=== PATIENT | female | born 1945 | race African-American/Black ===

== ENCOUNTER 2020-11-07 12:22 | Outpatient (CLI) | payer MEDICARE, SELFPAY ==
[2020-11-07 12:58] LABS: Alanine Aminotransferase 26 U/L (4-35); Albumin Level 3.5 g/dL (3.5-5.1); Alkaline Phosphatase 77 U/L (38-126); Anion Gap 6 mmol/L (8-16); Aspartate Amino Transferase 56 U/L (14-36); Bilirubin,Total 0.8 mg/dL (0.2-1.3); Blood Urea Nitrogen 18 mg/dL (7-17); Calcium 9.1 mg/dL (8.4-10.2); Carbon Dioxide 34 mmol/L (22-30); Chloride 96 mmol/L (98-107); Estimated Glomerular Filt Rate 59; Glucose 101 mg/dL (65-105); Potassium 3.5 mmol/L (3.4-5.0); Sodium 136 mmol/L (137-145)
[2020-11-07 13:08] LABS: NT Pro B Type Natriuretic Pept 262 PG/ML (5-100)
== END 2020-11-07 12:23 | disposition home or self-care (01) ==
PROVIDERS: PCP Emergency Medicine; Visit Provider Emergency Medicine
DX: R60.9 Edema, unspecified (principal); R06.00 Dyspnea, unspecified; E78.5 Hyperlipidemia, unspecified
CPT/HCPCS: 36415; 80053; 83880; 84443

== ENCOUNTER 2021-01-25 09:44 | Inpatient (IN) | payer MEDICARE, MEDICAID, SELFPAY ==
[2021-01-25] VITALS (26 sets, daily range): BP systolic 105–148; BP diastolic 52–99; PULSE 77–88; RESP 11–20; TEMP 36.2–36.4; O2SAT 99–100
--- NOTE | ~2021-01-25 | XR_ITS ---
EXAMINATION: XR foot RT 2V DATE: 02/07/2021 08:46 INDICATION: Right foot pain. TECHNIQUE: 2 views of right foot were obtained. COMPARISON: None. FINDINGS: Bone alignment is normal. No fracture. There is mild osteoarthritis of many of the midfoot joints and interphalangeal joints. There are enthesophytes at the posterior and plantar aspects of ca lcaneal tuberosity. IMPRESSION: 1. Polyarticular osteoarthritis. Reviewed, dictated and finalized at location A. TENDER
--- NOTE | ~2021-01-25 | XR_ITS ---
EXAMINATION: XR foot LT 2V DATE: 02/07/2021 08:46 INDICATION: Left foot pain. TECHNIQUE: 3 views of left foot were obtained. COMPARISON: None. FINDINGS: Bone alignment is normal. No fracture. There is mild osteoarthritis of first metatarsophala ngeal joint and many of the midfoot joints and interphalangeal joints. There are enthesophytes at the posterior and plantar aspects of calcaneal tuberosity. IMPRESSION: 1. Polyarticular osteoarthritis. Reviewed, dictated and finalized at location A. PROGRAMMER ANALYST
--- NOTE | ~2021-01-25 | US_ITS ---
EXAMINATION: US abdomen duplex complete INDICATION: Mesenteric artery calcification on CT, abdominal pain and concern for mesenteric ischemia TECHNIQUE: Grayscale and color Doppler ultrasound of the aorta, superior mesenteric artery, celiac ar mellissa, splenic artery, and hepatic artery was performed. Doppler waveforms are also obtained. COMPARISON: None available FINDINGS: The superior mesenteric artery, celiac trunk, abdominal aorta, hepatic artery, and splenic artery are patent. Doppler waveforms are normal. No significant stenosis is identified. IMPRESSION: 1. No hemodynamically significant stenosis identified. Reviewed, dictated and finalized at location A. EW COORDINATOR
--- NOTE | ~2021-01-25 | US_ITS ---
EXAMINATION: US carotid duplex BI DATE: 01/27/2021 16:22 INDICATION: Presyncope. Carotid atherosclerosis and cerebral atherosclerosis. TECHNIQUE: Grayscale, color Doppler, and pulsed Doppler images of the cervical carotid arteries were obtained. The degree of vessel stenosis is placed in one of the following categories: normal, <50%, 5 0-69%, >=70% but less than near-occlusion, near-occlusion, or total occlusion. Note that percent sten osis relative to normal distal artery lumen diameter is indirectly measured from velocity measurement s as described by Ashok, et al. Radiology 2003; 229:340-346. COMPARISON: None. FINDINGS: RIGHT: The right common carotid artery (CCA) peak systolic velocity (PSV) is 45 cm/s. The right internal car otid artery (ICA) PSV is 58 cm/s. The right ICA end-diastolic velocity (EDV) is 21 cm/s. The right IC A/CCA PSV ratio is 1.3. Grayscale and color Doppler images yield an estimate of <50% diameter reducti on from plaque in the ICA. The external carotid artery (ECA) PSV is 47 cm/s. There is antegrade flow in the right vertebral artery. LEFT: The left CCA PSV is 68 cm/s. The left ICA PSV is 86 cm/s. The left ICA EDV is 33 cm/s. The left ICA/C CA PSV ratio is 1.3. Grayscale and color Doppler images yield an estimate of <50% diameter reduction from plaque in the ICA. The ECA PSV is 37 cm/s. There is antegrade flow in the left vertebral artery. IMPRESSION: 1. <50% stenosis in the right internal carotid artery. 2. <50% stenosis in the left internal carotid artery. Reviewed, dictated and finalized at location B. UNITY ORGANIZER
--- NOTE | ~2021-01-25 | CT_ITS ---
EXAMINATION: CT brain wo con DATE: 01/29/2021 02:58 INDICATION: Confusion. TECHNIQUE: Computed tomography (CT) of the head was performed without intravenous contrast. The mA wa s adjusted according to patient size. Iterative reconstruction technique was employed. The dose-lengt h product was 681.00 mGy-cm. COMPARISON: Head CT 03/15/18 FINDINGS: Motion artifact is noted. There is no intracranial hemorrhage, acute infarction, or abnorma l intracranial mass lesion. The ventricles are normal in size. The mastoid air cells are normal. Ther e is mild mucosal thickening in the paranasal sinuses. The orbits are normal. IMPRESSION: 1. Normal brain. Sensitivity is severely decreased by motion artifact. Reviewed, dictated and finalized at location A. ER
--- NOTE | ~2021-01-25 | XR_ITS ---
EXAMINATION: XR UGI w barium swallow DATE: 01/29/2021 08:35 INDICATION: Nausea. Anorexia. TECHNIQUE: The patient drank thin barium. Fluoroscopy of the esophagus, stomach, and proximal small b owel was performed. Fluoroscopy exposure time was 1.0 minutes. The total number of images was 287. To tha dose-area product was 2.787 Gy-cm^2. COMPARISON: CT abdomen and pelvis 01/25/2021 FINDINGS: There is no mass or stricture of the esophagus. There is severe esophageal dysmotility with decreased primary and secondary esophageal peristalsis. There is no hiatal hernia. The stomach and p roximal small bowel show normal folding patterns. IMPRESSION: 1. Severe esophageal dysmotility. Reviewed, dictated and finalized at location A. ITY ASSURANCE SUPERVISOR CHASSIS
--- NOTE | ~2021-01-25 | XR_ITS ---
XR chest 2V DATE: 01/25/2021 10:55 INDICATION: Dizziness. Weakness. TECHNIQUE: AP and lateral views COMPARISON: 08/18/2028 AP and lateral chest FINDINGS: Normal heart size. Aortic arch calcification, mild aortic unfolding. No hilar or mediastina l enlargement. No pulmonary infiltrate or consolidation, pleural effusion or pulmonary vascular congestion or pneumo thorax. Degenerative spurring of the thoracic spine. IMPRESSION: No active cardiopulmonary disease Reviewed, dictated and finalized at location A. L DEALER
--- NOTE | ~2021-01-25 | US_ITS ---
EXAMINATION: US abdomen limited DATE: 01/26/2021 09:05 INDICATION: Cholelithiasis TECHNIQUE: Multiple grayscale and Doppler ultrasound images of the abdomen were obtained. COMPARISON: None FINDINGS: The. Visualized pancreas is normal. Small portion of the pancreatic head and distal tip of the talar not visualized. Visualized portion of the proximal inferior vena cava is normal. Liver has normal con tour, with a smooth surface. There is increased parenchymal echogenicity and coarsened echotexture co nsistent with diffuse hepatic steatosis. No liver lesion identified. No intrahepatic biliary duct di lation suspected. Portal venous flow was seen in the hepatopetal, normal direction and has normal Dop pler waveform. Multiple echogenic and shadowing gallstones filling a significant portion of the other fitch normal-appearing gallbladder with no dilation or wall thickening. The common bile duct measures up to 5 mm in maximal diameter which is normal. Sonographic Ca sign was reported as negative by josephine church environmental science technician. IMPRESSION: 1. Cholelithiasis. 2. Diffuse hepatic steatosis. Reviewed, dictated and finalized at location B. NISTRATIVE COORDINATOR
--- NOTE | ~2021-01-25 | US_ITS ---
EXAMINATION: US venous doppler [facility] DATE: 01/26/2021 09:06 INDICATION: Lower limb swelling TECHNIQUE: Grayscale ultrasound images without and with compression and Doppler ultrasound images of the bilateral lower extremity veins were obtained. COMPARISON: 03/02/2013 FINDINGS: The visualized portions of right common femoral vein, profunda (deep) femoral vein, femoral vein, pop liteal vein, posterior tibial veins, peroneal veins, gastrocnemius vein and greater saphenous vein ou tflow are patent. The visualized portions of left common femoral vein, profunda femoral vein, femoral vein, popliteal v ein, posterior tibial veins, peroneal veins, gastrocnemius vein and greater saphenous vein outflow ar e patent. 3.8 x 1.6 x 0.7 cm Rodriges cyst at the left popliteal fossa. IMPRESSION: 1. No deep venous thrombosis in either lower limb. 2. Small left Rodriges's cyst. Reviewed, dictated and finalized at location B. GER SUPPORT SERVICES
--- NOTE | ~2021-01-25 | CT_ITS ---
EXAMINATION: CT abdomen pelvis w con DATE: 01/25/2021 11:31 INDICATION: Postprandial nausea and vomiting TECHNIQUE: Computed tomography (CT) of the abdomen and pelvis was performed with 100 cc Omnipaque 350 intravenous contrast. Automated exposure control and iterative reconstruction technique were employe d. Exam dose: 502.70 mGy-cm total exam DLP. COMPARISON: 11/12/2011 CT abdomen pelvis FINDINGS: Calcified middle lobe pulmonary granuloma. The lung bases are clear of consolidation. Coronary artery calcifications. Heart size is within normal range. No pericardial or pleural effusion . Diffuse hepatic steatosis. Probable 6 mm cyst the lower right hepatic lobe. Probable smaller posterio r upper right hepatic dome cyst. Approximately 11 mm splenic cyst. No splenomegaly. There are numerous faceted gallstones in the approximate 6 mm range. No gallbladder wall abnormal thi ckening or pericholecystic fluid or fat stranding is noted. No bile duct or pancreatic duct dilatatio n. No pancreatic mass lesion or calcification. Normal morphology of the adrenal glands. There are two several millimeter left renal cysts. No renal mass lesion is noted otherwise. No urinar y tract calculus or hydroureteronephrosis. The urinary bladder is unremarkable. Uterus and adnexal ar eas are unremarkable. There is atherosclerotic calcification of the abdominal aorta and prominent calcifications at the wayne gins of the celiac and superior mesenteric and renal arteries. No abdominal aortic aneurysm or dissec tion. No intraperitoneal or retroperitoneal or pelvic mass lesion or adenopathy or ascites. No bowel obstruction, bowel wall thickening, pneumatosis or intraperitoneal free air. Diffuse idiopathic skeletal hyperostosis of the thoracic spine. There is severe degenerative change at the apophyseal joints of the lumbar and lumbosacral area with associated grade 1 anterolisthesis at L4-5. IMPRESSION: Cholelithiasis Hepatic steatosis Probable hepatic and small left renal cysts 11 mm splenic cyst Reviewed, dictated and finalized at Location A. Reviewed, dictated and finalized at location A. MANAGEMENT OFFICER
--- NOTE | 2021-01-25 09:50 | ECG_ITS ---
Measurements Intervals [place] Rate: 81 P: 30 CT: 141 QRS: -20 QRSD: 153 T: 76 QT: 432 QTc: 504 Interpretive Statements SINUS RHYTHM LEFT BUNDLE BRANCH BLOCK ABNORMAL ECG Electronically Signed On 01-25-2021 12:41:52 INFORMATION TECHNOLOGY SECURITY MANAGER by Fabián Foreman D.O.
[2021-01-25 10:56] LABS: Basophils Absolute Auto 0.1 K/mm3 (0.0-0.1); Eosinophils Absolute Auto 0.1 K/mm3 (0-0.3); Eosinophils Percent Auto 1.9 % (0-4.4); Hematocrit 30.7 % (37.0-47.0); Hemoglobin 10.2 g/dL (12.0-15.0); Immature Granulocyte Absolute 0.03 K/mm3 (0.00-0.031); Immature Granulocyte Percent A 0.6 % (0-0.5); Lymphocytes Absolute Auto 1.26 K/mm3 (0.9-3.2); Lymphocytes Percent Auto 26.1 % (18.3-44.2); Mean Corpuscular HGB Conc 33.2 g/dl (32-36); Mean Corpuscular Hemoglobin 34.1 pg (26-34); Mean Corpuscular Volume 102.7 fl (80-100); Mean Platelet Volume 9.3 fl (7.4-10.4); Monocytes Absolute Auto 0.4 K/mm3 (0.1-0.6); Monocytes Percent Auto 8.7 % (2.6-8.5); Neutrophils Percent Auto 61.7 % (45.5-73.1); Platelet Count Result 190 k/mm3 (150-375); Red Blood Count 2.99 M/mm3 (4.2-5.4); Red Cell Distribution Width 12.9 % (11.5-14.5); White Blood Count 4.8 K/mm3 (4.5-10.0)
[2021-01-25 11:10] LABS: INR 0.9; Prothrombin Time 12.9 Seconds (11.1-14.7)
[2021-01-25 11:11] LABS: Partial Thromboplastin Time 35.4 SECONDS (22.3-36.8)
[2021-01-25 11:12] LABS: Alanine Aminotransferase 10 U/L (4-35); Albumin Level 3.7 g/dL (3.5-5.1); Alkaline Phosphatase 101 U/L (38-126); Anion Gap 8 mmol/L (8-16); Aspartate Amino Transferase 27 U/L (14-36); Bilirubin,Total 0.7 mg/dL (0.2-1.3); Blood Urea Nitrogen 36 mg/dL (7-17); Calcium 9.7 mg/dL (8.4-10.2); Carbon Dioxide 37 mmol/L (22-30); Chloride 91 mmol/L (98-107); Estimated Glomerular Filt Rate 45; Glucose 91 mg/dL (65-105); Potassium 3.1 mmol/L (3.4-5.0); Sodium 136 mmol/L (137-145)
[2021-01-25 11:36] LABS: Lipase 323 U/L (23-300)
[2021-01-25 11:46] LABS: NT Pro B Type Natriuretic Pept 472 PG/ML (5-100)
[2021-01-25 11:53] LABS: Troponin I < 0.012 ng/mL (0.000-0.034)
[2021-01-25 12:20] LABS: Add Urine Microscopic? YES; Appearance Urine Clear (Clear); Bacteria Urine 4+ /hpf; Bilirubin Urine Negative (Negative); Blood Urine 1+ (Negative); Color Urine Amber (Yellow); Glucose Urine UA Negative (Negative); Ketones Urine Trace mg/dL (Negative); Leukocyte Esterase Ur 2+ LEU/UL (Negative); Mucus Urine Rare /lpf; Nitrate Urine Negative (Negative); Protein Urine 1+ mg/dL (Negative); RBC Urine 0-2 /hpf (0-2); Specific Grav Ur 1.024 (1.001-1.035); Squamous Epithelial Cell Urine Rare /hpf (Few); WBC Urine 21-30 /hpf
--- NOTE | 2021-01-25 13:22 | PC.NURSE ---
Patient was able to drink all of the water that was provided to her.
--- NOTE | 2021-01-25 13:30 | ED.GENADULT ---
HPI - General Adult General Chief complaint: Dizziness Stated complaint: dizziness Time Seen by Provider: 01/25/21 10:07 Source: patient and family Mode of arrival: ambulatory Limitations: no limitations History of Present Illness HPI narrative: Patient is a 75-year-old female who presents to emergency department for evaluation of multiple complaints noting that she has nausea and vomiting with eating and drinking over the last 3 weeks patient also noting she has not had a bowel movement in multiple days which she attributes to not eating. Patient per daughter has had multiple syncopal episodes in the last week. Patient on arrival denying any pain. Patient denies similar occurrence in the past. Patient has seen primary care in the recent past and cardiology. Per daughter patient is scheduled to have a stress test in the near future. Related Data Home Medications Medication Instructions Recorded Confirmed atenolol 50 mg-chlorthalidone 25 See Rx Instructions .ROUTE .COMPLEX 11/02/19 01/02/21 mg tablet simvastatin 40 mg tablet 40 mg PO DAILY 11/02/19 01/02/21 lisinopril 01/25/21 Allergies Allergy/AdvReac Type Severity Reaction Status Date / Time No Known Drug Allergies Allergy Mild Unknown Verified 01/02/21 14:08 Review of Systems Review of Systems: All systems reviewed & are unremarkable except as noted in HPI and below PMFSH Past Medical History Medical History (Updated 01/25/21 @ 13:35 by Pasquale Leary PA-C) Contact dermatitis Hypertension Family History Family History Father Family history of malignant neoplasm, Onset Age: 60 Social History Social History Smoking status: Never smoker Gender identity (if verbalized by the patient): Female Exam Narrative: Exam Narrative: GENERAL: Well-appearing, well-nourished, and in no acute distress. HEAD: Normocephalic, atraumatic. EYES: PERRLA and EOMI. ENT: Nares clear, no rhinorrhea or epistaxis. Mucous membranes dry NECK: Supple. No adenopathy or masses. CHEST: Clear to auscultation. No respiratory distress. No wheezes rales or rhonchi HEART: Regular rate and rhythm. No murmur heard. Normal peripheral pulses. ABDOMEN: Soft, tenderness in the upper quadrants of the abdomen, nondistended, normal active bowel sounds. EXTREMITIES: Normal range of motion. No edema. SKIN: Warm, dry, no rash. NEURO: No focal deficits. Alert and oriented x3. Cranial nerves II through XII grossly intact PSYCH: Normal mood and affect. Course Course Emergency Course: Patient evaluated for mild complaints found to have urinary tract infection and dehydration will be placed in hospital to the hospitalist service with consult with cardiology patient will be hydrated and given antibiotics as part of her admit. Patient hemodynamically stable at this time resting comfortably in the room in no distress Consultations Consultation #1: Discussed case with hospitalist Ann who has accepted the patient would like cardiology consult med telemetry admission Date: 01/25/21 Time: 13:35 Vital Signs Vital signs: Vital Signs Temperature 97.1 F L 01/25/21 09:57 Pulse Rate 85 01/25/21 09:57 Respiratory Rate 14 01/25/21 09:57 Blood Pressure 141/67 H 01/25/21 09:57 Pulse Oximetry 100 01/25/21 09:57 Temperature 97.1 F L 01/25/21 09:57 Pulse Rate 85 01/25/21 12:01 Respiratory Rate 20 01/25/21 12:01 Blood Pressure 120/74 01/25/21 12:01 Pulse Oximetry 100 01/25/21 12:01 Medical Decision Making [facility] Narrative Medical decision making narrative: Patient in the room in no distress resting comfortably hydrated given antibiotics in the room and will be admitted Vital Signs Vital Signs: Vital Signs Temperature 97.1 F L 01/25/21 09:57 Pulse Rate 85 01/25/21 09:57 Respiratory Rate 14 01/25/21 09:57 Blood Pressure 141/67 H
[2021-01-25] MEDS: LACTATED RINGERS 1,000 ML 80 ML (13:57)
--- NOTE | 2021-01-25 15:44 | ADMGEN ---
This patient, Darcy Sanchez, was admitted to Medical Room 246-. Patient/family oriented to hospital policies and general routines including ID bracelet, bed and alarms, visiting hours, pain management, procedures, bathroom and other care routines, personal items, smoking policy, room service/diet, and visiting hours. Information on how to activate the Rapid Response Team has been discussed. Patient/Family are encouraged to report perceived risks to care and to ask questions if they do not understand what they are told or what they should do.
[2021-01-25] MEDS: LACTATED RINGERS 1,000 ML 80 ML IV CONT (15:51)
--- NOTE | 2021-01-25 16:44 | PM.CNCAR ---
Assessment and Plan Assessment and plan (1) Acute dehydration: Code(s): E86.0 - Dehydration Status: Acute Assessment and Plan: Receiving IVF. (2) Urinary tract infection: Code(s): N39.0 - Urinary tract infection, site not specified Status: Acute Assessment and Plan: Perhaps this is causing her Nausea/vomiting? On IV antibiotics. Managed by hospitalist. (3) LBBB (left bundle branch block): Code(s): I44.7 - Left bundle-branch block, unspecified Status: Acute (4) Dyslipidemia: Code(s): E78.5 - Hyperlipidemia, unspecified Status: Acute Assessment and Plan: On statin. (5) Dyspnea on exertion: Code(s): R06.00 - Dyspnea, unspecified Status: Acute Assessment and Plan: Scheduled for Lexiscan myoview stress test this Tuesday, will keep that schedule. (6) Edema: Code(s): R60.9 - Edema, unspecified Status: Acute Assessment and Plan: Mild and improved. Probably due to venous insufficiency. (7) Hypertension: Code(s): I10 - Essential (primary) hypertension Status: Acute Assessment and Plan: Stable. History of Present Illness History of Present Illness Consult date/time: 01/25/21 16:44 Reason for consult: Dizziness 75 yr old woman who I saw once a few weeks ago who was referred by Dr. Woods presents to ER due to nausea/vomiting. She has a history of hypertension and dyslipidemia, LBBB. States that in last few weeks she has nausea and vomiting started 3 days ago. She has no appetite as she is not hungry. States she has dizziness after standing for 30 minutes. No passing out. She was on Lasix 40 mg daily which I reduced to 20 mg daily a few weeks ago and her leg edema has improved to only mild. She can walk only short distance now due to it. Previous to that she was able to walk a block but slowly. Denies chest pain, sob, orthopnea, PND, palpitations. Hb 10.2. Potassium 3.1. Cr 1.4/GFR 45. Sodium 136. Troponin 0. EKG shows sinus rhythm, LBBB. CXR: Normal. CT abd: Normal. Cardiovascular Procedures Echo/MUGA:: 11/07/20 at [facility] Echo: EF 55-60%, mild LVH, grade I diastolic dysfunction, hypokinetic inferior/apical septum;mid anteroseptum, mild LAE, mild MAC/MR, mod TR. Electrophysiology:: 01/02/21 EKG: Sinus tachycardia at 109 bpm, LBBB. 08/14/19 EKG: Sinus rhythm, LBBB. Reason For Visit: syncope/urinary tract infection/dehydration Review of Systems Review of Systems: All systems reviewed & are unremarkable except as noted in HPI and below Constitutional: Constitutional: Reports as per HPI, Denies chills and Denies fever(s) Cardiovascular: Cardiovascular: Reports as per HPI, Denies chest pain, Reports leg edema, Reports lightheadedness and Reports dyspnea on exertion Respiratory: Respiratory: Reports as per HPI and Denies dyspnea Gastrointestinal: Gastrointestinal: Reports as per HPI, Denies abdominal pain, Reports nausea and Reports vomiting Genitourinary: Genitourinary: Reports as per HPI, Denies nocturia, Denies dysuria, Denies urinary hesitancy and Denies urinary urgency Musculoskeletal: Musculoskeletal: Reports as per HPI Neurologic: Reports as per HPI, Reports dizziness and Denies syncope PMFSH Past Medical History Medical History (Updated 01/25/21 @ 16:53 by Fabián Foreman DO) Contact dermatitis Hypertension Family History Family History (Updated 01/25/21 @ 16:03 by Janae Fraser RN) Father Family history of malignant neoplasm, Onset Age: 60 Mother Cerebrovascular accident Social History Social History Smoking status: Never smoker Alcohol intake: former Drinks per week: 21 Substance use: never Substance use type: does not use Gender identity (if verbalized by the patient): Female Spiritual care concerns: No Meds Home Medications and Allergies Home Medications Medication Instructions
--- NOTE | 2021-01-25 17:40 | PC.NURSE ---
I notified Ann Aguilar that the patient stated she has not had a bowel movement in 10-14 days. The patient stated that it was just bile coming out . The patient stated she did not think it was diarrhea. The patient stated she has not been able to eat in 3 weeks and has only been able to drink some fluids here and there. The patient was not able to confirm her home medications besides Lasix and Potassium. The patient stated she used to take blood pressure medications, but recently stopped taking them because her blood pressure was low. I attempted to confirm these medications with the daughter and granddaughter, but they were unable to confirm these medications. Ann is aware.
--- NOTE | 2021-01-25 22:05 | PM.IMHP ---
H&P: HPI History of Present Illness Date/Time: 01/25/21 22:05 Chief Complaint: Syncope Narrative: Darcy Sanchez is a 75 year old female who lives home by herself. The patient stated that she has been vomiting on and off for 3 weeks. The patient tells me that she has not been eating anything. When I asked her what she was eating she said that she was eating ice cream and she could keep that down. She denied any history of any peptic ulcer disease. The patient had not taken anything for the vomiting. She said she did not feel nauseated before. When she eats certain food then she vomited. She said she ate some peaches and it made her vomit. She said that ice cream and milk stayed down worse other food did not. She denies having any abdominal pain. She said that she lost about 50 lb over the last 3 months. She recently has seen her air analysis engineering technician and has been on diuretics. The patient has been taking her medication without difficulty. The patient has not had any fever chills or any loss of taste or smell. The patient stated that she has not had a bowel movement several days. She has had multiple syncopal episodes in the last week. She has had several occurrences in the past. The patient is scheduled to have a stress test in the near future. Dr. gibbs has been consulted she denies any chest pain. She states that she does not actively walk but if she is doing dishes or walking somewhere that she does get short of breath at times. Patient's EKG today shows sinus rhythm left bundle-branch block. This is comparable to her previous EKG that she had on 01/02/2021. The patient has seen her air analysis engineering technician a few days ago. The patient's urine was positive for UTI. She was started on Rocephin. H&H is 10.2 and 30.7. Potassium is 3.1. Creatinine is 1.4. It had previously been 1.1. GFR is now 45 where it had been 59 previously. The patient has trace edema. Abdominal pelvis CT was read as cholelithiasis. Hepatic steatosis. Probable hepatic a small left renal cyst. 11 mm splenic cyst. Seen the patient. Patient is scheduled for Lexiscan Myoview stress test this Tuesday and plan to keep that appointment. I asked the patient if she has ever seen a GI specialist for this and she stated she had not. When I reviewed her records it looks like she had a Cologuard that was normal. In the emergency room she was started on ceftriaxone and lactated Ringer's. Chest x-ray was read as no active cardiopulmonary disease. The patient is being admitted for observation on the date of service of 01/25/2021. Review of Systems Review of Systems: All systems reviewed & are unremarkable except as noted in HPI and below Constitutional: Constitutional: Reports as per HPI and Reports no additional constitutional complaints Eyes: Eyes: Reports as per HPI and Reports no additional eye complaints ENT: Reports system reviewed and no additional complaints, except as documented and Reports Normal hearing present Cardiovascular: Cardiovascular: Reports no additional cardiovascular complaints Respiratory: Respiratory: Reports no additional respiratory complaints and Reports no additional respiratory complaints Gastrointestinal: Gastrointestinal: Reports as per HPI and Reports no additional gastrointestinal complaints Musculoskeletal: Musculoskeletal: Reports no additional musculoskeletal complaints Integumentary/Breasts: Skin/Breast: Reports system reviewed and no additional complaints, except as docu and Reports as per HPI Neurologic: Reports system reviewed and no additional complaints, except as documented, Reports as per HPI and Reports Normal hearing present Psychiatric: Psychiatric: Reports no additional psychiatric complaints and Reports as per HPI Endocrine: Endocrine: Reports no additional endocrine complaints Hematologic/Lymphatic: Hematologic/Lymphatic: Reports no additional hematologic/lymphatic complaints Allergic/Immunologic: Allergic/Immunologic: Reports
[2021-01-26] VITALS (14 sets, daily range): BP systolic 78–126; BP diastolic 47–82; PULSE 66–111; RESP 16; TEMP 36.2–36.4; O2SAT 96–100; BMI 27.1
--- NOTE | 2021-01-26 05:01 | PC.NURSE ---
pt refusing lab draw this morning. Pt states she does not want to wake up for that. Pt educated on why/significance labs are drawn in the morning, pt again refused.
[2021-01-26] MEDS: LACTATED RINGERS 1,000 ML 80 ML IV CONT ×2 (05:40→22:59)
[2021-01-26 06:29] LABS: Basophils Percent Auto 0.8 % (0.2-1.2); Eosinophils Absolute Auto 0.2 K/mm3 (0-0.3); Eosinophils Percent Auto 3.2 % (0-4.4); Hematocrit 25.5 % (37.0-47.0); Hemoglobin 8.6 g/dL (12.0-15.0); Immature Granulocyte Absolute 0.03 K/mm3 (0.00-0.031); Immature Granulocyte Percent A 0.6 % (0-0.5); Lymphocytes Percent Auto 26.1 % (18.3-44.2); Mean Corpuscular HGB Conc 33.7 g/dl (32-36); Mean Corpuscular Hemoglobin 34.1 pg (26-34); Mean Corpuscular Volume 101.2 fl (80-100); Mean Platelet Volume 8.9 fl (7.4-10.4); Monocytes Absolute Auto 0.6 K/mm3 (0.1-0.6); Neutrophils Absolute Auto 2.9 K/mm3 (1.3-6.7); Neutrophils Percent Auto 58.3 % (45.5-73.1); Platelet Count Result 157 k/mm3 (150-375); Red Blood Count 2.52 M/mm3 (4.2-5.4); Red Cell Distribution Width 12.8 % (11.5-14.5)
[2021-01-26 06:53] LABS: Alanine Aminotransferase 7 U/L (4-35); Alkaline Phosphatase 86 U/L (38-126); Anion Gap 8 mmol/L (8-16); Aspartate Amino Transferase 20 U/L (14-36); Bilirubin,Total 0.6 mg/dL (0.2-1.3); Blood Urea Nitrogen 25 mg/dL (7-17); Calcium 9.2 mg/dL (8.4-10.2); Carbon Dioxide 30 mmol/L (22-30); Chloride 96 mmol/L (98-107); Estimated Glomerular Filt Rate 59; Glucose 84 mg/dL (65-105); Lipase 266 U/L (23-300); Magnesium 1.1 mg/dL (1.6-2.3); Potassium 3.1 mmol/L (3.4-5.0); Sodium 134 mmol/L (137-145)
[2021-01-26] MEDS: PANTOPRAZOLE SODIUM IV 40 MG VIAL IV PUSH (07:35)
[2021-01-26] MEDS: MAGNESIUM SULFATE 3GM/D5W100ML 3 GM/100 ML BAG IVPB (07:40)
--- NOTE | 2021-01-26 08:03 | PM.PNCARD ---
Progress Note: A&P Assessment and Plan (1) Acute dehydration: Code(s): E86.0 - Dehydration Status: Acute Assessment and Plan: Receiving IVF. (2) Urinary tract infection: Code(s): N39.0 - Urinary tract infection, site not specified Status: Acute Assessment and Plan: Perhaps this is causing her Nausea/vomiting? On IV antibiotics. Managed by hospitalist. (3) LBBB (left bundle branch block): Code(s): I44.7 - Left bundle-branch block, unspecified Status: Chronic (4) Dyslipidemia: Code(s): E78.5 - Hyperlipidemia, unspecified Status: Chronic Assessment and Plan: On statin. (5) Dyspnea on exertion: Code(s): R06.00 - Dyspnea, unspecified Status: Acute Assessment and Plan: Scheduled for Lexiscan myoview stress test this Tuesday, will keep that schedule. (6) Edema: Code(s): R60.9 - Edema, unspecified Status: Chronic Assessment and Plan: Mild and improved. Probably due to venous insufficiency. Hold diuretics. Replete potassium and Mag as they are low probably from diuretics. (7) Hypertension: Code(s): I10 - Essential (primary) hypertension Status: Chronic Assessment and Plan: Stable. Hold her antiypertensives. (8) Anemia: Code(s): D64.9 - Anemia, unspecified Status: Acute Assessment and Plan: Probably chronic, and worsened by dilution. Needs workup for anemia, and managed by hospitalist. (9) Dizziness: Code(s): R42 - Dizziness and giddiness Status: Acute Assessment and Plan: No syncope per patient. Due to dehydration from diuretics and poor PO intake. Subjective Date/time seen: 01/26/21 08:03 No nausea this morning. No dizziness at the moment. Denies chest pain or sob. Exam Const: General: cooperative, healthy appearing and comfortable Resp: Auscultation: clear to auscultation bilaterally, no crackles, no rales, no rhonchi and no wheezes Cardio: Jugular venous distension: no JVD Rate: regular rate Rhythm: regular rhythm Heart sounds: no murmurs Peripheral pulses: dorsalis pedis present GI: GI Palp: No abdominal tenderness and Yes Soft to palpation Neuro: General: oriented to person, oriented to place and oriented to time Extrem: Right lower extremity: edema Left lower extremity: edema Other: Mild edema of both legs Objective Data Vital Signs Vital Signs: Vital Signs - 24 hr 01/25/21 09:57 01/25/21 10:01 01/25/21 10:16 Temperature 97.1 F L Pulse Rate 85 82 78 Respiratory Rate 14 17 13 Blood Pressure 141/67 H 132/79 133/74 Pulse Oximetry 100 100 100 01/25/21 10:31 01/25/21 10:46 01/25/21 10:58 Temperature Pulse Rate 78 84 83 Respiratory Rate 17 15 16 Blood Pressure 133/75 134/84 148/72 H Pulse Oximetry 100 100 01/25/21 11:01 01/25/21 11:16 01/25/21 11:34 Temperature Pulse Rate 83 79 83 Respiratory Rate 13 13 13 Blood Pressure 116/99 H 137/73 125/79 Pulse Oximetry 100 100 01/25/21 11:46 01/25/21 12:01 01/25/21 12:16 Temperature Pulse Rate 83 85 82 Respiratory Rate 13 20 11 L Blood Pressure 125/52 L 120/74 124/67 Pulse Oximetry 100 100 100 01/25/21 12:31 01/25/21 12:46 01/25/21 13:01 Temperature Pulse Rate 88 80 85 Respiratory Rate 18 14 14 Blood Pressure 138/67 128/64 124/64 Pulse Oximetry 100 100 100 01/25/21 13:16 01/25/21 13:31 01/25/21 13:32 Temperature Pulse Rate 86 80 81 Respiratory Rate 14 13 15 Blood Pressure 105/61 131/69 Pulse Oximetry 100 99 01/25/21 13:47 01/25/21 14:01 01/25/21 14:16 Temperature Pulse Rate 84 85 83 Respiratory Rate 16 14 16 Blood Pressure 123/76 124/67 124/65 Pulse Oximetry 01/25/21 14:31 01/25/21 14:46 01/25/21 15:01 Temperature Pulse Rate 83 77 78 Respiratory Rate 14 15 14 Blood Pressure 120/61 117/64 115/65 Pulse Oximetry 01/25/21 16:00 01/25/21 20:00 01/26/21 00:00 Temperature 97.5 F L 97.6 F Pulse Rate 81 83
--- NOTE | 2021-01-26 13:08 | PCNSR ---
On 01/26/21, the student, Sonia Espino, provided care and completed [facility] documentation on this patient. I have reviewed the student's documentation and agree with the findings.
--- NOTE | 2021-01-26 15:54 | WPDGICN ---
Assessment and Plan Assessment and plan (1) Nausea and vomiting: Code(s): R11.2 - Nausea with vomiting, unspecified Status: Acute Assessment and Plan: will proceed with egd tomorrow she is losing weight and anorexia need to assess if esophagitis, stricture or even malignancy (2) Weight loss: Code(s): R63.4 - Abnormal weight loss Status: Acute Assessment and Plan: CT scan reviewed, will do EGD apparently had negative cologuard but if no major findings in egd then consider colonoscopy at some point (3) Macrocytic anemia: Code(s): D53.9 - Nutritional anemia, unspecified Status: Acute Assessment and Plan: egd, no signs of bleeding will get b12, folate (4) Dizziness: Code(s): R42 - Dizziness and giddiness Status: Acute (5) Syncope: Code(s): R55 - Syncope and collapse Status: Acute Assessment and Plan: in setting of dehydration cardiology on board (6) Urinary tract infection: Code(s): N39.0 - Urinary tract infection, site not specified Status: Acute Assessment and Plan: on antibiotics (7) Hypokalemia: Code(s): E87.6 - Hypokalemia Status: Acute Assessment and Plan: treated (8) Dehydration: Code(s): E86.0 - Dehydration Status: Acute Assessment and Plan: resolved after hydration GI Consult Note Consult date/time: 01/26/21 15:54 Reason for consult: anorexia HPI: Darcy Sanchez is a 75 year old female who is poor historian. She says that for last 2-3 months not eating much. She says that will put food in her mouth and then won't swallow, denies nausea per se but sometimes spit out. She says that certain meals will make her sick and lost about 50 lb. Denies abdominal pain. She has been seeing by cardiology and was using diuretics. She also says that has not had a bowel movement several days. She was admitted here because syncopal episodes in the last week. Also had urine positive for UTI and started on Rocephin. H&H is 10.2 and 30.7. Potassium is 3.1. Creatinine is 1.4 (baseline 1.1). Abdominal pelvis CT reviewed, cholelithiasis. Hepatic steatosis. 11 mm splenic cyst. She says that had negative cologuard 2-3 years ago and colonoscopy years ago. Review of Systems Constitutional: Constitutional: Denies chills Eyes: Eyes: Reports no additional eye complaints ENT: Reports Normal hearing present Cardiovascular: Cardiovascular: Denies chest pain Respiratory: Respiratory: Reports no additional respiratory complaints Gastrointestinal: Gastrointestinal: Reports vomiting Genitourinary: Genitourinary: Denies hematuria Musculoskeletal: Musculoskeletal: Denies back pain Integumentary/Breasts: Skin/Breast: Denies dry skin Neurologic: Comments: syncope Psychiatric: Psychiatric: Reports anxiety Endocrine: Endocrine: Denies cold intolerance [facility] Past Medical History Medical History (Updated 01/26/21 @ 16:04 by Emery Richardson MD) Contact dermatitis Dehydration Dyslipidemia Hypertension Macrocytic anemia Weight loss Surgical History Surgical History (Updated 01/25/21 @ 22:16 by Ann Aguilar NP) H/O abdominal surgery Most likely a salpingo-oophorectomy and laparotomy. Excision of adhesions Family History Family History Father Family history of malignant neoplasm, Onset Age: 60 Mother Cerebrovascular accident Social History Social History (Updated 01/25/21 @ 22:21 by Ann Aguilar NP) Social History: the patient is . The patient states that she used to drink vodka every day but quit drinking about 2 weeks ago. She would not specify how much vodka she drink every day. She said she did now. She has 3 children in her oldest daughter paxton hernandez is a durable power disability attorney for healthcare. The patient is a full code. She denies any marijuana or illicit drugs.
--- NOTE | 2021-01-26 17:31 | PM.IMPN ---
Progress Note: A&P Assessment and Plan (1) Nausea and vomiting: Code(s): R11.2 - Nausea with vomiting, unspecified Status: Acute Assessment and Plan: It is difficult to discern a clear timeline of symptoms and details since she is only disclosing certain information to me. She admits to drinking vodka (approximately 3 shots daily) but quit drinking 2 weeks ago which raises suspicion for gastritis, esophagitis, or malignancy. It sounds as if she has had nausea and vomiting for 3 weeks with very poor oral intake. She has evidence of cholelithiasis on CT abd/pelvis and ultrasound but denies post-prandial pain so I am unsure if this is the primary cause. Urine culture does demonstrate UTI but I think this is unlikely to be the cause of her symptoms. GI consulted and input greatly appreciated. EGD is recommended for tomorrow. Consider HIDA and/or general surgery consultation pending EGD findings if she is interested in cholecystectomy Will order abdominal duplex US to evaluate for chronic mesenteric ischemia given CT finding of calcification of the celiac and SMA, weight loss, however this seems less likely to be the cause of her symptoms since she does not have post-prandial pain Continue antiemetic as needed Continue gentle IV fluids given poor oral intake Continue pantoprazole BID Advance diet as tolerated (2) Weight loss: Code(s): R63.4 - Abnormal weight loss Status: Acute Assessment and Plan: Patient reports that this is due to poor oral intake. CT abd/pelvis without evidence of malignancy and CXR unremarkable. EGD planned for tomorrow Will likely need colonoscopy if not up to date. GI following. Patient needs to ensure she is up to date on other screening exams including mammogram (3) Syncope: Code(s): R55 - Syncope and collapse Status: Acute Assessment and Plan: The patient admits to near syncope but denies syncope to me. Her daughter reports that she told her daughter that she did have a syncopal episode 1 week ago. She had recent echocardiogram performed 11/07/20 which demonstrated EF 55% and grade I diastolic dysfunction, segmental hypokinesis, moderate tricuspid regurgitation. She is orthostatic on orthostatic BP reading which is likely contributing given very poor oral intake over the past 3 weeks. She may have also been hypoglycemic due to poor oral intake. Telemetry shows sinus rhythm. Continue telemetry monitoring Will order carotid doppler US Continue gentle IV fluids given orthostasis. FILIBERTO edda recommended but she refused. Appreciate cardiology input (4) Urinary tract infection: Code(s): N39.0 - Urinary tract infection, site not specified Status: Acute Assessment and Plan: Urinalysis demonstrated 21-30 WBC, 2+ leukocyte esterase, 4+ bacteria. It is difficult to discern if she is symptomatic but does have several nonspecific complaints. She denies irritative voiding symptoms. Blood cultures ordered and pending. WBC normal and patient is afebrile. Continue ceftriaxone and tailor antibiotics when sensitivities are available (5) Acute dehydration: Code(s): E86.0 - Dehydration Status: Acute Assessment and Plan: Likely secondary to poor oral intake and diuretic therapy. Continue judicious IV fluids given known diastolic dysfunction as she is not tolerating much oral intake Furosemide currently held (6) Dyspnea on exertion: Code(s): R06.00 - Dyspnea, unspecified Status: Acute Assessment and Plan: Echocardiogram performed 11/07/20 demonstrated EF 55% and grade I diastolic dysfunction, segmental hypokinesis, moderate tricuspid regurgitation. She is seeing Dr. Foreman with Lexiscan myoview stress test scheduled for 01/30/21. Dr. Foreman was consulted and input is appreciated. She is breathing comfortably at this time. Resume furosemide when felt adequately hydrated (7)
[2021-01-27] VITALS (7 sets, daily range): BP systolic 93–140; BP diastolic 60–65; PULSE 75–121; RESP 16; TEMP 36.3–36.6; O2SAT 96–100
[2021-01-27 05:32] LABS: Basophils Percent Auto 0.6 % (0.2-1.2); Eosinophils Absolute Auto 0.2 K/mm3 (0-0.3); Eosinophils Percent Auto 3.2 % (0-4.4); Hematocrit 25.1 % (37.0-47.0); Hemoglobin 8.5 g/dL (12.0-15.0); Immature Granulocyte Absolute 0.05 K/mm3 (0.00-0.031); Immature Granulocyte Percent A 1.1 % (0-0.5); Lymphocytes Absolute Auto 0.99 K/mm3 (0.9-3.2); Lymphocytes Percent Auto 21.1 % (18.3-44.2); Mean Corpuscular HGB Conc 33.9 g/dl (32-36); Mean Corpuscular Hemoglobin 34.1 pg (26-34); Mean Corpuscular Volume 100.8 fl (80-100); Monocytes Absolute Auto 0.5 K/mm3 (0.1-0.6); Monocytes Percent Auto 11.1 % (2.6-8.5); Neutrophils Percent Auto 62.9 % (45.5-73.1); Platelet Count Result 151 k/mm3 (150-375); Red Blood Count 2.49 M/mm3 (4.2-5.4); Red Cell Distribution Width 12.6 % (11.5-14.5); White Blood Count 4.7 K/mm3 (4.5-10.0)
[2021-01-27 05:46] LABS: Alanine Aminotransferase 6 U/L (4-35); Albumin Level 2.8 g/dL (3.5-5.1); Alkaline Phosphatase 81 U/L (38-126); Anion Gap 5 mmol/L (8-16); Aspartate Amino Transferase 18 U/L (14-36); Bilirubin,Total 0.4 mg/dL (0.2-1.3); Blood Urea Nitrogen 16 mg/dL (7-17); Calcium 8.7 mg/dL (8.4-10.2); Carbon Dioxide 28 mmol/L (22-30); Chloride 99 mmol/L (98-107); Estimated CRCL calculation 39 ml/min; Estimated Glomerular Filt Rate 59; Glucose 92 mg/dL (65-105); Magnesium 1.6 mg/dL (1.6-2.3); Potassium 3.4 mmol/L (3.4-5.0); Sodium 132 mmol/L (137-145)
[2021-01-27 06:07] LABS: Iron 63 ug/dL (37-170)
[2021-01-27 06:16] LABS: Percent Iron Saturation 27 % (20-50)
[2021-01-27 06:54] LABS: Folic Acid 1.9 ng/mL (2.76->20)
--- NOTE | 2021-01-27 07:40 | PM.PNCARD ---
Progress Note: A&P Assessment and Plan (1) Acute dehydration: Code(s): E86.0 - Dehydration Status: Acute Assessment and Plan: Received IVF. (2) Urinary tract infection: Code(s): N39.0 - Urinary tract infection, site not specified Status: Acute Assessment and Plan: On IV antibiotics. Managed by hospitalist. (3) LBBB (left bundle branch block): Code(s): I44.7 - Left bundle-branch block, unspecified Status: Chronic (4) Dyslipidemia: Code(s): E78.5 - Hyperlipidemia, unspecified Status: Chronic Assessment and Plan: On statin. (5) Dyspnea on exertion: Code(s): R06.00 - Dyspnea, unspecified Status: Acute Assessment and Plan: Scheduled for Lexiscan myoview stress test this Tuesday, will keep that schedule. (6) Edema: Code(s): R60.9 - Edema, unspecified Status: Chronic Assessment and Plan: Mild and improved. Probably due to venous insufficiency. Hold diuretics. Replete potassium and Mag as they are low probably from diuretics. (7) Hypertension: Code(s): I10 - Essential (primary) hypertension Status: Chronic Assessment and Plan: Stable. Hold her antiypertensives. (8) Anemia: Code(s): D64.9 - Anemia, unspecified Status: Acute Assessment and Plan: Probably chronic, and worsened by dilution. Needs workup for anemia, and managed by hospitalist. (9) Dizziness: Code(s): R42 - Dizziness and giddiness Status: Acute Assessment and Plan: No syncope per patient. Due to dehydration from diuretics and poor PO intake. Subjective Date/time seen: 01/27/21 07:40 Denies dizziness, states she gets off balance at times while walking. Denies chest pain or sob. She ate OK yesterday. Exam Const: General: cooperative, healthy appearing and comfortable Resp: Auscultation: clear to auscultation bilaterally, no crackles, no rales, no rhonchi and no wheezes Cardio: Jugular venous distension: no JVD Rate: regular rate Rhythm: regular rhythm Heart sounds: no murmurs Peripheral pulses: dorsalis pedis present GI: GI Palp: No abdominal tenderness and Yes Soft to palpation Neuro: General: oriented to person, oriented to place and oriented to time Extrem: Right lower extremity: edema Left lower extremity: edema Other: Mild edema of both feet/ankles. Objective Data Vital Signs Vital Signs: Vital Signs - 24 hr 01/26/21 08:00 01/26/21 11:30 01/26/21 11:33 Temperature Pulse Rate 80 80 97 Pulse Rate [Monitor] Respiratory Rate Blood Pressure 107/56 L 112/61 Pulse Oximetry 01/26/21 11:36 01/26/21 12:00 01/26/21 14:00 Temperature 97.2 F L Pulse Rate 111 H 73 88 Pulse Rate [Monitor] Respiratory Rate 16 Blood Pressure 87/57 L 107/63 Pulse Oximetry 100 01/26/21 15:35 01/26/21 16:00 01/26/21 20:00 Temperature 97.4 F L Pulse Rate 85 87 Pulse Rate [Monitor] 88 Respiratory Rate 16 Blood Pressure 126/82 Pulse Oximetry 100 01/26/21 21:27 01/27/21 00:00 01/27/21 00:35 Temperature Pulse Rate 121 H 78 Pulse Rate [Monitor] Respiratory Rate Blood Pressure 78/47 L Pulse Oximetry 01/27/21 04:00 01/27/21 05:48 Temperature 97.3 F L Pulse Rate 76 79 Pulse Rate [Monitor] Respiratory Rate 16 Blood Pressure 140/64 Pulse Oximetry 100 Intake/Output Intake/Output: Intake & Output 01/24/21 01/25/21 01/26/21 01/27/21 23:59 23:59 23:59 23:59 Intake Total 50 3510 100 Output Total 200 200 600 Balance -150 3310 -500 Meds/Results Medications: Active Medications Generic Name Dose Route Start Last Admin Trade Name Freq PRN Reason Stop Dose Admin Acetaminophen 650 mg 01/25/21 13:36 Acetaminophen 325 Mg Tablet PO Q4H PRN Mild Pain (1-3) Al Hydrox/Mg Hydrox/Simethicone 30 ml 01/25/21 13:36 Mag Hydrox/Al Hydrox/Simeth 30 Ml Udc PO Q6H PRN Indigestion Ceftriaxone So
[2021-01-27] MEDS: PANTOPRAZOLE SODIUM IV 40 MG VIAL IV PUSH ×2 (08:33→20:58)
--- NOTE | 2021-01-27 10:24 | PC.NURSE ---
Pt took off her bus monitor when staff writer entered room she reprots i thought it was my hair brush and begun laughing. She does not want to put monitor back. Annie on floor and made aware okay to D/C. Cottage Parent paged Dr. Bettencourt to make aware pt is refusing to sign her consent for EGD at this time.
--- NOTE | 2021-01-27 13:44 | PM.IMPN ---
Progress Note: A&P Assessment and Plan (1) Nausea and vomiting: Code(s): R11.2 - Nausea with vomiting, unspecified Status: Acute Assessment and Plan: It is difficult to discern a clear timeline of symptoms and details since she is not forthcoming with details. She admits to drinking vodka (approximately 3 shots daily) but quit drinking 2 weeks ago which raises suspicion for gastritis, esophagitis, or malignancy. It sounds as if she has had nausea and vomiting for 3 weeks with very poor oral intake. She has evidence of cholelithiasis on CT abd/pelvis and ultrasound but denies post-prandial pain so I am unsure if this is the primary cause. Urine culture does demonstrate UTI but I think this is unlikely to be the cause of her symptoms. Abdominal US demonstrated cholelithiasis and diffuse hepatic steatosis. GI consulted and input greatly appreciated. EGD scheduled for today, however patient refused. Later she did seem to be agreeable, so this may be able to be accomplished tomorrow but will await GI recommendations Consider HIDA and/or general surgery consultation pending EGD findings if she is interested in cholecystectomy Abdominal duplex ultrasound ordered to evaluate for chronic mesenteric ischemia given CT finding of calcifications of celiac and SMA, however no ischemia noted and she is not having post-prandial pain so felt to be less likely Continue antiemetic as needed Continue gentle IV fluids given poor oral intake Continue pantoprazole BID Advance diet as tolerated (2) Weight loss: Code(s): R63.4 - Abnormal weight loss Status: Acute Assessment and Plan: Patient reports that this is due to poor oral intake. She is likely malnourished due to alcohol abuse. CT abd/pelvis without evidence of malignancy and CXR unremarkable. She reports negative cologuard test. EGD planned to evaluate for possible esophagitis, stricture, or malignancy Will likely need colonoscopy if not up to date, but will await EGD results. GI following. Patient needs to ensure she is up to date on other screening exams including mammogram (3) Syncope: Code(s): R55 - Syncope and collapse Status: Acute Assessment and Plan: The patient previously admitted to syncope and later denied. Her daughter reports that she did have a syncopal episode 1 week ago. She had recent echocardiogram performed 11/07/20 which demonstrated EF 55% and grade I diastolic dysfunction, segmental hypokinesis, moderate tricuspid regurgitation. She is orthostatic on orthostatic BP reading. Suspect this is related to dehydration given poor PO intake and diuretics. She may have also been hypoglycemic due to poor oral intake. Patient has self-removed front desk monitor. Tele reviewed showing NSR, therefore will discontinue. Carotid doppler US has been ordered and is pending Continue gentle IV fluids given orthostasis. FILIBERTO hose have been ordered but she refused. Monitor orthostatics q shift. Appreciate cardiology input (4) Urinary tract infection: Code(s): N39.0 - Urinary tract infection, site not specified Status: Acute Assessment and Plan: Urinalysis had normal upon presentation. Urine culture showed >100,000 CFU Klebsiella. Difficult to discern whether patient is symptomatic as she is unwilling to contribute to history. WBC normal and patient is afebrile. Continue ceftriaxone based on sensitivities. preliminary blood cultures growth to date. Monitor final culture (5) Acute dehydration: Code(s): E86.0 - Dehydration Status: Acute Assessment and Plan: Likely secondary to poor oral intake and diuretic therapy. Continue judicious IV fluids given known diastolic dysfunction as she is not tolerating much oral intake Furosemide currently held (6) Dyspnea on exertion: Code(s): R06.00 - Dyspnea, unspecified Status: Acute Assessment and Plan: Echocardiogra
[2021-01-27] MEDS: LACTATED RINGERS 1,000 ML 80 ML IV CONT (15:02)
--- NOTE | 2021-01-27 15:29 | WPDGIPROGNO ---
Progress Note: A&P Assessment and Plan (1) Nausea and vomiting: Code(s): R11.2 - Nausea with vomiting, unspecified Status: Acute Assessment and Plan: she is not best historian and today refused egd but now she says that changed her mind and willing to get it done tomorrow, will reschedule again and order to be npo after midnight (2) Weight loss: Code(s): R63.4 - Abnormal weight loss Status: Acute Assessment and Plan: egd tomorrow, CT scan without major findings to explain weight loss she says that had cologuard not too long ago, consider colonoscopy as outpatient (3) Macrocytic anemia: Code(s): D53.9 - Nutritional anemia, unspecified Status: Acute Assessment and Plan: hospitalist learnt that she drinks alcohol and wonder if could explain macrocytosis, liver enzymes and platelets normal though labs showed low folic acid- will replace (4) Alcohol abuse: Code(s): F10.10 - Alcohol abuse, uncomplicated Status: Acute (5) Cholelithiasis: Code(s): K80.20 - Calculus of gallbladder without cholecystitis without obstruction Status: Acute Assessment and Plan: I do not think that will explain n/v but awaiting abdominal ultrasound (6) Urinary tract infection: Code(s): N39.0 - Urinary tract infection, site not specified Status: Acute Assessment and Plan: + urine culture, on iv antibiotic Subjective Date/time seen: 01/27/21 15:29 Interval history: patient today refused EGD that we scheduled this morning but now says that is willing to do it tomorrow. When I asked her why she did not want to do it she said that it is my business . Review of Systems Review of Systems: All systems reviewed & are unremarkable except as noted in HPI and below Exam Const: General: comfortable and no acute distress HENMT: General nose exam: Normal nares present Eyes: General: appearance normal, both eyes and all related structures Neck: Neck: no JVD Resp: Auscultation: clear to auscultation bilaterally Cardio: Rate: regular rate Rhythm: regular rhythm GI: Inspection: non-distended GI Palp: Yes Soft to palpation and No Tenderness to palpation present (GI) Auscultation: normal bowel sounds Skin: General skin exam: normal color Neuro: Speech: normal speech Motor exam (neuro): Normal motor muscle tone present throughout Extrem: General: normal to inspection Psych: Affect: Anxious affect present Other: irritable Objective Data Vital Signs Vital Signs: Vital Signs - 24 hr 01/26/21 15:35 01/26/21 16:00 01/26/21 20:00 Temperature 97.4 F L Pulse Rate 85 87 Pulse Rate [Monitor] 88 Respiratory Rate 16 Blood Pressure 126/82 Pulse Oximetry 100 01/26/21 21:27 01/27/21 00:00 01/27/21 00:35 Temperature Pulse Rate 121 H 78 Pulse Rate [Monitor] Respiratory Rate Blood Pressure 78/47 L Pulse Oximetry 01/27/21 04:00 01/27/21 05:48 Temperature 97.3 F L Pulse Rate 76 79 Pulse Rate [Monitor] Respiratory Rate 16 Blood Pressure 140/64 Pulse Oximetry 100 Intake/Output Intake/Output: Intake & Output 01/24/21 01/25/21 01/26/21 01/27/21 23:59 23:59 23:59 23:59 Intake Total 50 3510 1100 Output Total 200 200 600 Balance -150 3310 500 Meds/Results Medications: Active Medications Generic Name Dose Route Start Last Admin Trade Name Freq PRN Reason Stop Dose Admin Acetaminophen 650 mg 01/25/21 13:36 Acetaminophen 325 Mg Tablet PO Q4H PRN Mild Pain (1-3) Al Hydrox/Mg Hydrox/Simethicone 30 ml 01/25/21 13:36 Mag Hydrox/Al Hydrox/Simeth 30 Ml Udc PO Q6H PRN Indigestion Folic Acid 1 mg 01/28/21 09:00 Folic Acid 1 Mg Tablet PO DAILY MILAGROS Ceftriaxone Sodium/Dextrose 1 gm in 50 mls @ 100 mls/hr 01/26/21 13:00 01/27/21 12:38 Rocephin 1 Gm/D5w 50 Ml IVPB 100 mls/hr Q24H MILAGROS Administration Lactated Ringer's 1,000 mls @ 65 mls/hr
[2021-01-28] MEDS: LORazepam INJ (*CRX) 2 MG/ML VIAL IM (01:06)
--- NOTE | 2021-01-28 01:09 | PM.EVENT ---
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 The patient has a history of alcohol abuse and her CIWA score is 23 tonight. She has ripped out 2 peripheral IVs according to the nursing staff. On my encounter with her, she appears very tremulous and believes that we are in her house. She is shouting at the nursing staff and telling her sitter to get out . At this time I will administer Ativan 2 mg IM for her acute agitation and withdrawal symptoms and reassess in 35 minutes as she may need more Ativan. Initiate oral Librium in am. Continue CIWA-AR protocol.
[2021-01-28 02:35] VITALS: PULSE 88
[2021-01-28 04:00] VITALS: PULSE 88
[2021-01-28 05:35] LABS: Hematocrit 25.1 % (37.0-47.0); Hemoglobin 8.5 g/dL (12.0-15.0); Mean Corpuscular HGB Conc 33.9 g/dl (32-36); Mean Corpuscular Hemoglobin 34.7 pg (26-34); Mean Corpuscular Volume 102.4 fl (80-100); Mean Platelet Volume 9.2 fl (7.4-10.4); Platelet Count Result 137 k/mm3 (150-375); Red Blood Count 2.45 M/mm3 (4.2-5.4); Red Cell Distribution Width 12.6 % (11.5-14.5); White Blood Count 7.3 K/mm3 (4.5-10.0)
[2021-01-28 05:44] LABS: Alanine Aminotransferase 6 U/L (4-35); Albumin Level 2.7 g/dL (3.5-5.1); Alkaline Phosphatase 85 U/L (38-126); Anion Gap 4 mmol/L (8-16); Aspartate Amino Transferase 17 U/L (14-36); Bilirubin,Total 0.4 mg/dL (0.2-1.3); Blood Urea Nitrogen 16 mg/dL (7-17); Calcium 8.7 mg/dL (8.4-10.2); Carbon Dioxide 29 mmol/L (22-30); Chloride 99 mmol/L (98-107); Cholesterol 178 mg/dL (0-200); Estimated CRCL calculation 36 ml/min; Estimated Glomerular Filt Rate 53; Glucose 93 mg/dL (65-105); HDL Direct 27 mg/dL; Magnesium 1.5 mg/dL (1.6-2.3); Potassium 3.8 mmol/L (3.4-5.0); Sodium 132 mmol/L (137-145); Triglycerides 76 mg/dL (<150)
[2021-01-28 05:55] LABS: LDL Cholesterol Direct 118 mg/dL
[2021-01-28 06:00] VITALS: BP 152/73; PULSE 84; RESP 16; TEMP 36.2; O2SAT 97
--- NOTE | 2021-01-28 07:47 | PM.PNCARD ---
Progress Note: A&P Assessment and Plan (1) Acute dehydration: Code(s): E86.0 - Dehydration Status: Acute Assessment and Plan: Received IVF. (2) Urinary tract infection: Code(s): N39.0 - Urinary tract infection, site not specified Status: Acute Assessment and Plan: On IV antibiotics. Managed by hospitalist. (3) LBBB (left bundle branch block): Code(s): I44.7 - Left bundle-branch block, unspecified Status: Chronic (4) Dyslipidemia: Code(s): E78.5 - Hyperlipidemia, unspecified Status: Chronic Assessment and Plan: On statin. (5) Dyspnea on exertion: Code(s): R06.00 - Dyspnea, unspecified Status: Acute Assessment and Plan: Scheduled for Lexiscan myoview stress test this Tuesday, will keep that schedule. (6) Edema: Code(s): R60.9 - Edema, unspecified Status: Chronic Assessment and Plan: Mild and improved. Probably due to venous insufficiency. Hold diuretics. Replete potassium and Mag as they are low probably from diuretics. (7) Hypertension: Code(s): I10 - Essential (primary) hypertension Status: Chronic Assessment and Plan: Stable. Hold her antiypertensives. (8) Anemia: Code(s): D64.9 - Anemia, unspecified Status: Acute Assessment and Plan: Probably chronic, and worsened by dilution. Needs workup for anemia, and managed by hospitalist. (9) Dizziness: Code(s): R42 - Dizziness and giddiness Status: Acute Assessment and Plan: No syncope per patient. Could also be due to alcoholism as she states she gets off balance not dizziness. Due to dehydration from diuretics and poor PO intake. Subjective Date/time seen: 01/28/21 07:47 Patient is drowsy. She received Ativan for confusion/combativeness. Exam Const: General: other (drowsy) Resp: Auscultation: clear to auscultation bilaterally, no crackles, no rales, no rhonchi and no wheezes Cardio: Jugular venous distension: no JVD Rate: regular rate Rhythm: regular rhythm Heart sounds: no murmurs Peripheral pulses: dorsalis pedis present GI: GI Palp: No abdominal tenderness and Yes Soft to palpation Neuro: General: oriented to person, oriented to place and oriented to time Extrem: Right lower extremity: edema Left lower extremity: edema Other: Mild edema of both feet/ankles. Objective Data Vital Signs Vital Signs: Vital Signs - 24 hr 01/27/21 14:00 01/27/21 20:00 01/27/21 22:00 Temperature 97.9 F 97.3 F L Pulse Rate 106 H 75 Pulse Rate [Monitor] 88 Respiratory Rate 16 16 Blood Pressure 93/60 L 138/65 Pulse Oximetry 96 100 01/28/21 02:35 01/28/21 04:00 01/28/21 06:00 Temperature 97.2 F L Pulse Rate 84 Pulse Rate [Monitor] 88 88 Respiratory Rate 16 Blood Pressure 152/73 H Pulse Oximetry 97 Intake/Output Intake/Output: Intake & Output 01/25/21 01/26/21 01/27/21 01/28/21 23:59 23:59 23:59 23:59 Intake Total 50 3510 1150 100 Output Total 200 200 950 Balance -150 3310 200 100 Meds/Results Medications: Active Medications Generic Name Dose Route Start Last Admin Trade Name Freq PRN Reason Stop Dose Admin Acetaminophen 650 mg 01/25/21 13:36 Acetaminophen 325 Mg Tablet PO Q4H PRN Mild Pain (1-3) Al Hydrox/Mg Hydrox/Simethicone 30 ml 01/25/21 13:36 Mag Hydrox/Al Hydrox/Simeth 30 Ml Udc PO Q6H PRN Indigestion Chlordiazepoxide HCl 50 mg 01/28/21 09:00 Chlordiazepoxide (*Crx) 25 Mg Capsule PO Q6H MILAGROS Folic Acid 1 mg 01/28/21 09:00 Folic Acid 1 Mg Tablet PO DAILY MILAGROS Ceftriaxone Sodium/Dextrose 1 gm in 50 mls @ 100 mls/hr 01/26/21 13:00 01/27/21 13:10 Rocephin 1 Gm/D5w 50 Ml IVPB Infused Q24H MILAGROS Infusion Lactated Ringer's 1,000 mls @ 65 mls/hr 01/25/21 13:40 01/27/21 15:02 Lr - Lactated Ringers Iv IV CONT 80 mls/hr .[id number] MILAGROS Administration Lactated Ringer's 1,000 mls @
--- NOTE | 2021-01-28 08:02 | PCOTNOTE ---
Attempted to see patient this AM for OT evaluation. Per nursing, patient is still sedated on Ativan after her episode of delirium and combativeness. She reports that therapy should come back this afternoon to attempt.
--- NOTE | 2021-01-28 11:46 | PC.NURSE ---
Dr. Bettencourt on floor, [facility] pt is not going to have the EGD as she continues to refuse. He will order another diagnostic test. Okay to resume regular diet.
--- NOTE | 2021-01-28 12:00 | PC.NURSE ---
Annie OLIVARES on floor made aware Pt has been refusing all PO medications, pulled out her IV and will not allow another site to be placed all IV medications are unable to be give. Pt is very agressive, coombative, and vulgar with staff. Annie Witnessed this as she would not allow Annie to assess her.
--- NOTE | 2021-01-28 12:44 | WPDGIPROGNO ---
Progress Note: A&P Assessment and Plan (1) Nausea and vomiting: Code(s): R11.2 - Nausea with vomiting, unspecified Status: Acute Assessment and Plan: she refused for second day in a row the EGD daughter is here at bedside she has been confused, probably from previous alcohol use and wonder if could have early dementia will order barium swallow test mostly to rule out any obvious pathology in esophagus (she did not want to get EGD). Also recent CT scan no obvious findings to explain weight loss or anorexia. (2) Weight loss: Code(s): R63.4 - Abnormal weight loss Status: Acute Assessment and Plan: will get esophagram (3) Macrocytic anemia: Code(s): D53.9 - Nutritional anemia, unspecified Status: Acute Assessment and Plan: could be from alcohol use but also low folic, replacing (4) Alcohol abuse: Code(s): F10.10 - Alcohol abuse, uncomplicated Status: Acute (5) Cholelithiasis: Code(s): K80.20 - Calculus of gallbladder without cholecystitis without obstruction Status: Acute Assessment and Plan: I do not think that will explain n/v ultrasound reviewed, fatty liver and cholelithiasis (6) Urinary tract infection: Code(s): N39.0 - Urinary tract infection, site not specified Status: Acute Assessment and Plan: + urine culture, on iv antibiotic Subjective Date/time seen: 01/28/21 12:44 Interval history: RN reports that patient got confused and paranoid yesterday, this morning she refused again to have EGD. Daughter came, I talked to her and she says that patient used to drink but she has not had anything for 3 weeks, also has not been eating much. Lately seems that she has been getting more confused and owning Review of Systems Review of Systems: All systems reviewed & are unremarkable except as noted in HPI and below Exam Const: General: comfortable and no acute distress HENMT: General nose exam: Normal nares present Eyes: General: appearance normal, both eyes and all related structures Neck: Neck: no JVD Resp: Auscultation: clear to auscultation bilaterally Cardio: Rate: regular rate Rhythm: regular rhythm GI: Inspection: non-distended GI Palp: Yes Soft to palpation and No Tenderness to palpation present (GI) Auscultation: normal bowel sounds Skin: General skin exam: normal color Neuro: Speech: normal speech Motor exam (neuro): Normal motor muscle tone present throughout Extrem: General: normal to inspection Psych: Affect: Anxious affect present Other: irritable Objective Data Vital Signs Vital Signs: Vital Signs - 24 hr 01/27/21 14:00 01/27/21 20:00 01/27/21 22:00 Temperature 97.9 F 97.3 F L Pulse Rate 106 H 75 Pulse Rate [Monitor] 88 Respiratory Rate 16 16 Blood Pressure 93/60 L 138/65 Pulse Oximetry 96 100 01/28/21 02:35 01/28/21 04:00 01/28/21 06:00 Temperature 97.2 F L Pulse Rate 84 Pulse Rate [Monitor] 88 88 Respiratory Rate 16 Blood Pressure 152/73 H Pulse Oximetry 97 Intake/Output Intake/Output: Intake & Output 01/25/21 01/26/21 01/27/21 01/28/21 23:59 23:59 23:59 23:59 Intake Total 50 3510 1150 100 Output Total 200 200 950 Balance -150 3310 200 100 Meds/Results Medications: Active Medications Generic Name Dose Route Start Last Admin Trade Name Freq PRN Reason Stop Dose Admin Acetaminophen 650 mg 01/25/21 13:36 Acetaminophen 325 Mg Tablet PO Q4H PRN Mild Pain (1-3) Al Hydrox/Mg Hydrox/Simethicone 30 ml 01/25/21 13:36 Mag Hydrox/Al Hydrox/Simeth 30 Ml Udc PO Q6H PRN Indigestion Chlordiazepoxide HCl 50 mg 01/28/21 09:00 01/28/21 08:58 Chlordiazepoxide (*Crx) 25 Mg Capsule PO Not Given Q6H [facility] Folic Acid 1 mg 01/28/21 09:00 01/28/21 11:04 Folic Acid 1 Mg Tablet PO Not Given DAILY MILAGROS Ceftriaxone Sodium/Dextrose 1 gm in 50 mls @ 100 mls/hr 01/26/21 13:00 01/27/21 13:1
--- NOTE | 2021-01-28 15:30 | PCOTNOTE ---
Patient continues to be agitated this date and unable to complete OT evaluation at this time. Will attempt OT evaluation tomorrow as appropriate.
--- NOTE | 2021-01-28 15:50 | PM.IMPN ---
Progress Note: A&P Assessment and Plan (1) Confusion: Code(s): R41.0 - Disorientation, unspecified Status: Acute Assessment and Plan: Patient is confused and acutely agitated. Patient's daughter states that she has noticed gradual onset of confusion over the past 1-2 weeks. Differential is broad at this time, including dementia, hospital induced psychosis, Wernicke's encephalopathy, or alcohol withdrawal. Metabolic encephalopathy related to UTI considered however less likely given worsening rather than improvement following IV abx. She is refusing medications and does not have IV access. Obtain head CT Administer IM haldol x1 for acute agitation. Begin low dose seroquel at night if patient will take it. Consider consultation to neurology vs psychology based on further evaluation. (2) Nausea and vomiting: Code(s): R11.2 - Nausea with vomiting, unspecified Status: Acute Assessment and Plan: It is difficult to discern a clear timeline of symptoms since she is not forthcoming with details. She admits to drinking vodka (approximately 3 shots daily) but quit drinking 2 weeks ago which raises suspicion for gastritis, esophagitis, or malignancy. It sounds as if she has had nausea and vomiting for 3 weeks with very poor oral intake. She has evidence of cholelithiasis on CT abd/pelvis and ultrasound but denies post-prandial pain so I am unsure if this is the primary cause. Abdominal US demonstrated cholelithiasis and diffuse hepatic steatosis. Abdominal duplex US showed no signficant stenosis to suggest chronic mesenteric ischemia. GI consulted and input greatly appreciated. She refused EGD x2. UGI x-ray with barium swallow has been ordered per GI recs. Proceed if patient will tolerate. Consider HIDA and/or general surgery consultation. Will await results from esophagram. Continue antiemetics as needed Gentle IV fluids given poor oral intake ordered, however patient has removed IV access. Continue pantoprazole BID when IV access re-established. (3) Weight loss: Code(s): R63.4 - Abnormal weight loss Status: Acute Assessment and Plan: Patient reports that this is due to poor oral intake. She is likely malnourished due to alcohol abuse. CT abd/pelvis without evidence of malignancy and CXR unremarkable. She reports negative cologuard test. EGD planned to evaluate for possible esophagitis, stricture, or malignancy, however patient refused therefore will proceed with esophagram. Will likely need colonoscopy if not up to date, but will await EGD results. GI following. Patient needs to ensure she is up to date on other screening exams including mammogram (4) Urinary tract infection: Code(s): N39.0 - Urinary tract infection, site not specified Status: Acute Assessment and Plan: Urinalysis abnormal upon presentation. Urine culture showed >100,000 CFU Klebsiella. Difficult to discern whether patient is symptomatic as she is unwilling to contribute to history. WBC normal and patient is afebrile. Continue ceftriaxone based on sensitivities, started on 01/25. preliminary blood cultures with no growth to date. Monitor final cultures (5) Alcohol abuse: Code(s): F10.10 - Alcohol abuse, uncomplicated Status: Acute Assessment and Plan: She reports history of daily vodka use but reports that she quit drinking 2 weeks ago and daughter confirms this. CIWA scores had been <2, however last night she became acutely agitated and her CIWA score was 17. She appears to be having hallucinations. Last CIWA was 12. continue monitoring with CIWA protocol. scheduled librium has been ordered however she is refusing medications. Ativan is available as needed for CIWA >8 however currently no IV access. Hope to re-establish IV access upon improvement of agitation. Continue thiamine and folic acid supplementation (6) Cholelithiasis: C
[2021-01-28 20:00] VITALS: BP 152/73; PULSE 84; PULSE 88; RESP 16; TEMP 36.3; O2SAT 97
[2021-01-28 22:00] VITALS: BP 126/78; PULSE 87; RESP 21; TEMP 36.8; O2SAT 100
[2021-01-28 22:01] VITALS: O2SAT 97
[2021-01-29] VITALS (11 sets, daily range): BP systolic 119–138; BP diastolic 59–95; PULSE 88–112; RESP 16–21; TEMP 35.7–36.5; O2SAT 95–100
[2021-01-29] MEDS: OLANZapine 10 MG INJ VIAL IM (01:51)
[2021-01-29] MEDS: WATER, STERILE FOR INJECTION 10 ML VIAL XX (01:52)
[2021-01-29 05:52] LABS: Hematocrit 28.2 % (37.0-47.0); Hemoglobin 9.3 g/dL (12.0-15.0); Mean Corpuscular Hemoglobin 33.8 pg (26-34); Mean Corpuscular Volume 102.5 fl (80-100); Mean Platelet Volume 8.8 fl (7.4-10.4); Platelet Count Result 152 k/mm3 (150-375); Red Blood Count 2.75 M/mm3 (4.2-5.4); Red Cell Distribution Width 12.6 % (11.5-14.5); White Blood Count 6.1 K/mm3 (4.5-10.0)
[2021-01-29 06:13] LABS: Alanine Aminotransferase 7 U/L (4-35); Alkaline Phosphatase 95 U/L (38-126); Anion Gap 8 mmol/L (8-16); Aspartate Amino Transferase 21 U/L (14-36); Bilirubin,Total 0.4 mg/dL (0.2-1.3); Blood Urea Nitrogen 16 mg/dL (7-17); Calcium 9.3 mg/dL (8.4-10.2); Carbon Dioxide 26 mmol/L (22-30); Chloride 102 mmol/L (98-107); Estimated CRCL calculation 43 ml/min; Estimated Glomerular Filt Rate > 60; Glucose 78 mg/dL (65-105); Potassium 3.7 mmol/L (3.4-5.0); Sodium 136 mmol/L (137-145)
[2021-01-29] MEDS: chlordiazePOXIDE (*CRX) 25 MG CAPSULE 50 MG PO (08:46)
[2021-01-29] MEDS: FOLIC ACID 1 MG TABLET PO (08:49)
[2021-01-29] MEDS: THIAMINE HCL 100 MG TABLET PO (08:51)
--- NOTE | 2021-01-29 09:09 | PM.PNCARD ---
Progress Note: A&P Assessment and Plan (1) Acute dehydration: Code(s): E86.0 - Dehydration Status: Acute Assessment and Plan: Received IVF. (2) Urinary tract infection: Code(s): N39.0 - Urinary tract infection, site not specified Status: Acute Assessment and Plan: On IV antibiotics. Managed by hospitalist. (3) LBBB (left bundle branch block): Code(s): I44.7 - Left bundle-branch block, unspecified Status: Chronic (4) Dyslipidemia: Code(s): E78.5 - Hyperlipidemia, unspecified Status: Chronic Assessment and Plan: On statin. (5) Dyspnea on exertion: Code(s): R06.00 - Dyspnea, unspecified Status: Acute Assessment and Plan: Will cancel Lexiscan myoview stress test as this is not urgent and not the reason why she is in hospital. Will perform as outpatient once she is no longer confused and recovered from UTI and worked up for anemia. (6) Edema: Code(s): R60.9 - Edema, unspecified Status: Chronic Assessment and Plan: Mild and improved. Probably due to venous insufficiency. Hold diuretics. Replete potassium and Mag as they are low probably from diuretics. (7) Hypertension: Code(s): I10 - Essential (primary) hypertension Status: Chronic Assessment and Plan: Stable. Hold her antiypertensives. (8) Anemia: Code(s): D64.9 - Anemia, unspecified Status: Acute Assessment and Plan: Probably chronic, and worsened by dilution. Needs workup for anemia, and managed by hospitalist. (9) Dizziness: Code(s): R42 - Dizziness and giddiness Status: Acute Assessment and Plan: No syncope per patient. Could also be due to alcoholism as she states she gets off balance not dizziness. Due to dehydration from diuretics and poor PO intake. Subjective Date/time seen: 01/29/21 09:09 Patient is awake and alert this morning but confused. She thinks she is leaving by noon to go to an appointment. Denies chest pain or sob. Exam Const: General: healthy appearing, comfortable and confusion Resp: Auscultation: clear to auscultation bilaterally, no crackles, no rales, no rhonchi and no wheezes Cardio: Jugular venous distension: no JVD Rate: regular rate Rhythm: regular rhythm Heart sounds: no murmurs Peripheral pulses: dorsalis pedis present GI: GI Palp: No abdominal tenderness and Yes Soft to palpation Neuro: General: oriented to person, oriented to place and oriented to time Extrem: Right lower extremity: no edema Left lower extremity: no edema Objective Data Vital Signs Vital Signs: Vital Signs - 24 hr 01/28/21 20:00 01/28/21 22:00 01/28/21 22:01 Temperature 97.4 F L 98.2 F Pulse Rate 84 87 Pulse Rate [Monitor] 88 Respiratory Rate 16 21 H Blood Pressure 152/73 H 126/78 Pulse Oximetry 97 100 97 01/29/21 00:00 01/29/21 03:59 01/29/21 06:00 Temperature 97.7 F Pulse Rate 97 Pulse Rate [Monitor] 88 88 Respiratory Rate 21 H Blood Pressure 126/78 126/78 125/63 Pulse Oximetry 100 01/29/21 08:30 Temperature Pulse Rate Pulse Rate [Monitor] 100 Respiratory Rate Blood Pressure Pulse Oximetry Intake/Output Intake/Output: Intake & Output 01/26/21 01/27/21 01/28/21 01/29/21 23:59 23:59 23:59 23:59 Intake Total 3510 1150 100 90 Output Total 200 950 300 Balance 3310 200 100 -210 Meds/Results Medications: Active Medications Generic Name Dose Route Start Last Admin Trade Name Freq PRN Reason Stop Dose Admin Acetaminophen 650 mg 01/25/21 13:36 Acetaminophen 325 Mg Tablet PO Q4H PRN Mild Pain (1-3) Al Hydrox/Mg Hydrox/Simethicone 30 ml 01/25/21 13:36 Mag Hydrox/Al Hydrox/Simeth 30 Ml Udc PO Q6H PRN Indigestion Chlordiazepoxide HCl 50 mg 01/28/21 09:00 01/29/21 08:46 Chlordiazepoxide (*Crx) 25 Mg Capsule PO 50 mg Q6H MILAGROS Administration Folic Acid 1 mg 01/28/21 09:00 01/29/21 08:
--- NOTE | 2021-01-29 09:30 | PCPTNOTE ---
Attempted PT co-eval with OT secondary to confused and combative behavior. Pt needs to transfer to [facility] as therapist arrives. Patient becomes irritated of 2 therapists in room stating I don't need 2 people to help me pee. PT stands outside room to offer privacy and unable to complete evaluation at this time. OT still attempting. Monica Perez, KEYLAT
--- NOTE | 2021-01-29 09:38 | PCOTNOTE ---
OT evaluation attempted. Patient agitated and refusing to participate with any therapy despite encouragement. Will attempt at later time
--- NOTE | 2021-01-29 10:56 | PC.NURSE ---
Annie OLIVARES notified of no iv site and pt not letting me start one. Protonix iv and ivf have not been given.
--- NOTE | 2021-01-29 11:22 | PM.IMPN ---
Progress Note: A&P Assessment and Plan (1) Neurocognitive disorder: Code(s): R41.9 - Unspecified symptoms and signs involving cognitive functions and awareness Status: Acute Assessment and Plan: Multifactorial in etiology. Suspect acute delirium related to alcohol withdrawal and metabolic encephalopathy due to UTI superimposed on advanced dementia. She had been previously combative and agitated. She is refusing oral medications. Head CT showed no acute findings. Case discussed with psychiatrist Dr. Branch. His input is greatly appreciated. Ativan 0.5 mg p.o. t.i.d. as needed for agitation. Transition to IM if not tolerating p.o. intake. Per Dr. Branch, IV Ativan should be avoided. Zyprexa 5 mg p.o. b.i.d. as needed for agitation. Proceed with IM if necessary Will also add Zyprexa 2.5 mg p.o. q.h.s. Check RPR, HIV, and hepatitis panel (2) Nausea and vomiting: Code(s): R11.2 - Nausea with vomiting, unspecified Status: Acute Assessment and Plan: Ongoing 2-3 weeks prior to presentation with very poor oral intake She admits to drinking vodka (approximately 3 shots daily) but quit drinking 2 weeks ago which raises suspicion for gastritis, esophagitis, or malignancy.She has evidence of cholelithiasis on CT abd/pelvis and ultrasound but denies post-prandial pain so seems less likely to be primary etiology. Abdominal US demonstrated cholelithiasis and diffuse hepatic steatosis. Abdominal duplex US showed no significant stenosis to suggest chronic mesenteric ischemia. She refused EGD x2. UGI x-ray with barium swallow showed severe esophageal dysmotility. Appreciate GI input. Continue antiemetics as needed IV fluids are advised given poor oral intake, however patient does not have IV access. Protonix on hold (3) Weight loss: Code(s): R63.4 - Abnormal weight loss Status: Acute Assessment and Plan: Likely due to poor oral intake. She is malnourished due to alcohol abuse. CT abd/pelvis without evidence of malignancy and CXR unremarkable. EGD planned to evaluate for possible esophagitis, stricture, or malignancy, however patient refused therefore esophagram obtained which does demonstrate esophageal dysmotility Will likely need colonoscopy if not up to date, but will await EGD results. GI following. Patient needs to ensure she is up to date on other screening exams including mammogram (4) Urinary tract infection: Code(s): N39.0 - Urinary tract infection, site not specified Status: Acute Assessment and Plan: Urinalysis abnormal upon presentation. Urine culture showed >100,000 CFU Klebsiella. WBC normal and patient is afebrile. Continue ceftriaxone based on sensitivities, started on 01/25. She has received 3 doses of IV Rocephin. Will transition to IM Rocephin today. Plan to complete at least 5 days of antibiotic therapy. preliminary blood cultures with no growth to date. Monitor final cultures (5) Alcohol abuse: Code(s): F10.10 - Alcohol abuse, uncomplicated Status: Acute Assessment and Plan: She reports history of daily vodka use but reports that she quit drinking 2 weeks ago and daughter confirms this. CIWA scores have been ranging 7-12, however this seems to be due to her agitation. Even if her last drink was on the day of admission (01/25), she would be outside the window of acute alcohol withdrawal continue monitoring with CIWA protocol. Discontinue librium. She is refusing PO medications, and per Dr. Branch, need to reduce amount of pills she is taking to help with confusion/agitation. Discussed case with him and he does not believe she is having acute withdrawals. Continue thiamine and folic acid supplementation (6) Cholelithiasis: Code(s): K80.20 - Calculus of gallbladder without cholecystitis without obstruction Status: Acute Assessment and Plan: CT abd/pelvis demonstrated cholelithiasis a
[2021-01-29] MEDS: OLANZapine 10 MG INJ VIAL 5 MG IM (13:08)
--- NOTE | 2021-01-29 15:07 | PCOTNOTE ---
Patient refusing to work with therapy. Easily agitated and unwilling to participate. Will attempt OT evaluation as appropriate.
[2021-01-29] MEDS: LACTATED RINGERS 1,000 ML 80 ML IV CONT (15:17)
--- NOTE | 2021-01-29 15:40 | WPDGIPROGNO ---
Progress Note: A&P Assessment and Plan (1) Nausea and vomiting: Code(s): R11.2 - Nausea with vomiting, unspecified Status: Acute Assessment and Plan: mostly anorexia, no report of emesis daughter and POA will be here tomorrow, hoping that this time she will be agreeable to get EGD- right now she is confused and can not make many decisions on her own reviewed esophagram- There is no mass or stricture of the esophagus. There is severe esophageal dysmotility with decreased primary and secondary esophageal peristalsis. There is no hiatal hernia. The stomach and proximal small bowel show normal folding patterns. dysmotility probably can explain part of symptoms but I think that ongoing confusion and decline in mental status not helping either, she has been combative and does not want to eat (2) Esophageal dysmotility: Code(s): K22.4 - Dyskinesia of esophagus Status: Acute Assessment and Plan: egd tomorrow (3) Weight loss: Code(s): R63.4 - Abnormal weight loss Status: Acute (4) Macrocytic anemia: Code(s): D53.9 - Nutritional anemia, unspecified Status: Acute Assessment and Plan: could be from alcohol use but also low folic, replacing (5) Alcohol abuse: Code(s): F10.10 - Alcohol abuse, uncomplicated Status: Acute Assessment and Plan: thiamine, mvi CT scan brain no acute findings (6) Cholelithiasis: Code(s): K80.20 - Calculus of gallbladder without cholecystitis without obstruction Status: Acute Assessment and Plan: I do not think that will explain n/v ultrasound reviewed, fatty liver and cholelithiasis (7) Urinary tract infection: Code(s): N39.0 - Urinary tract infection, site not specified Status: Acute Assessment and Plan: + urine culture, on iv antibiotic (8) Neurocognitive disorder: Code(s): R41.9 - Unspecified symptoms and signs involving cognitive functions and awareness Status: Acute Assessment and Plan: she is acting more confused, by primary Subjective Date/time seen: 01/29/21 15:40 Interval history: she has been quite more confused and combative, still not eating. Daughter is here and worried about her condition, she would like to schedule egd. Review of Systems Review of Systems: All systems reviewed & are unremarkable except as noted in HPI and below Exam Const: General: no acute distress Other: talking but gets confused, earlier was agitated for nurses HENMT: General nose exam: Normal nares present Eyes: General: appearance normal, both eyes and all related structures Neck: Neck: no JVD Resp: Auscultation: clear to auscultation bilaterally Cardio: Rate: regular rate Rhythm: regular rhythm GI: Inspection: non-distended GI Palp: Yes Soft to palpation and No Tenderness to palpation present (GI) Auscultation: normal bowel sounds Skin: General skin exam: normal color Neuro: Speech: normal speech Motor exam (neuro): Normal motor muscle tone present throughout Extrem: General: normal to inspection Psych: Speech and movement: Psychomotor agitation in speech present Affect: Anxious affect present Other: irritable Objective Data Vital Signs Vital Signs: Vital Signs - 24 hr 01/28/21 20:00 01/28/21 22:00 01/28/21 22:01 Temperature 97.4 F L 98.2 F Pulse Rate 84 87 Pulse Rate [Monitor] 88 Respiratory Rate 16 21 H Blood Pressure 152/73 H 126/78 Pulse Oximetry 97 100 97 01/29/21 00:00 01/29/21 03:59 01/29/21 06:00 Temperature 97.7 F Pulse Rate 97 Pulse Rate [Monitor] 88 88 Respiratory Rate 21 H Blood Pressure 126/78 126/78 125/63 Pulse Oximetry 100 01/29/21 08:30 01/29/21 11:30 01/29/21 14:00 Temperature 96.2 F L Pulse Rate 106 H Pulse Rate [Monitor] 100 Respiratory Rate 16 Blood Pressure 125/59 L Pulse Oximetry 97 95 Intake/Output Intake/Output: Intake & Output 01/26/21 01/27/21 01/28/2101/29
[2021-01-29] MEDS: LORazepam INJ (*CRX) 2 MG/ML VIAL 0.5 MG IM ×2 (15:51→20:39)
[2021-01-29 19:29] LABS: Intrinsic Factor Blocking Ab Negative (Negative)
[2021-01-29] MEDS: PANTOPRAZOLE SODIUM IV 40 MG VIAL IV PUSH (20:39)
[2021-01-30] VITALS (11 sets, daily range): BP systolic 79–145; BP diastolic 41–95; PULSE 86–106; RESP 16–21; TEMP 36.1–36.6; O2SAT 99–100
--- NOTE | 2021-01-30 07:11 | ECG_ITS ---
Measurements Intervals [place] Rate: 89 P: 65 [place]: 124 QRS: -19 QRSD: 142 T: 129 QT: 401 QTc: 488 Interpretive Statements SINUS RHYTHM WITH SINUS ARRHYTHMIA LEFT BUNDLE BRANCH BLOCK BASELINE ARTIFACT- I, II, III, AVR, AVL, AVF, V1-V6 ABNORMAL ECG Electronically Signed On 01-30-2021 9:15:17 SCIENCE TEACHER by Fabián Foreman D.O.
--- NOTE | 2021-01-30 07:49 | PM.PNCARD ---
Progress Note: A&P Assessment and Plan (1) Acute dehydration: Code(s): E86.0 - Dehydration Status: Acute Assessment and Plan: Received IVF. (2) Urinary tract infection: Code(s): N39.0 - Urinary tract infection, site not specified Status: Acute Assessment and Plan: On IV antibiotics. Managed by hospitalist. (3) LBBB (left bundle branch block): Code(s): I44.7 - Left bundle-branch block, unspecified Status: Chronic (4) Dyslipidemia: Code(s): E78.5 - Hyperlipidemia, unspecified Status: Chronic Assessment and Plan: On statin. (5) Dyspnea on exertion: Code(s): R06.00 - Dyspnea, unspecified Status: Acute Assessment and Plan: Will cancel Lexiscan myoview stress test as this is not urgent and not the reason why she is in hospital. Will perform as outpatient once she is no longer confused and recovered from UTI and worked up for anemia. No further cardiac workup at this time. Will sign off. Please call with questions or change in status. (6) Edema: Code(s): R60.9 - Edema, unspecified Status: Chronic Assessment and Plan: Mild and improved. Probably due to venous insufficiency. Hold diuretics. (7) Hypertension: Code(s): I10 - Essential (primary) hypertension Status: Chronic Assessment and Plan: Stable. Hold her antiypertensives. (8) Anemia: Code(s): D64.9 - Anemia, unspecified Status: Acute Assessment and Plan: Probably chronic, and worsened by dilution. Needs workup for anemia, and managed by hospitalist. (9) Dizziness: Code(s): R42 - Dizziness and giddiness Status: Acute Assessment and Plan: No syncope per patient. Could also be due to alcoholism as she states she gets off balance not dizziness. Due to dehydration from diuretics and poor PO intake. Subjective Date/time seen: 01/30/21 07:49 Patient is drowsy this morning. She was arousable and would say she is sleepy and fall back asleep. Exam Const: General: other (drowsy) Resp: Auscultation: clear to auscultation bilaterally, no crackles, no rales, no rhonchi and no wheezes Cardio: Jugular venous distension: no JVD Rate: regular rate Rhythm: regular rhythm Heart sounds: no murmurs Peripheral pulses: dorsalis pedis present GI: GI Palp: No abdominal tenderness and Yes Soft to palpation Neuro: General: oriented to person, oriented to place and oriented to time Extrem: Right lower extremity: no edema Left lower extremity: no edema Objective Data Vital Signs Vital Signs: Vital Signs - 24 hr 01/29/21 08:30 01/29/21 11:30 01/29/21 14:00 Temperature 96.2 F L Pulse Rate 106 H Pulse Rate [Monitor] 100 Respiratory Rate 16 Blood Pressure 125/59 L Pulse Oximetry 97 95 01/29/21 16:04 01/29/21 20:00 01/29/21 22:00 Temperature 97.7 F Pulse Rate 103 H 112 H Pulse Rate [Monitor] 106 H 106 H Respiratory Rate 21 H 21 H Blood Pressure 119/95 H 138/86 Pulse Oximetry 100 100 01/29/21 22:07 01/29/21 22:53 01/30/21 00:00 Temperature 97.3 F L Pulse Rate 103 H Pulse Rate [Monitor] 106 H Respiratory Rate 21 H Blood Pressure 119/95 H 119/95 H Pulse Oximetry 100 99 01/30/21 03:24 01/30/21 06:00 Temperature 97.4 F L Pulse Rate 91 Pulse Rate [Monitor] 106 H Respiratory Rate 21 H Blood Pressure 119/95 H 126/70 Pulse Oximetry 100 Intake/Output Intake/Output: Intake & Output 01/27/21 01/28/21 01/29/21 01/30/21 23:59 23:59 23:59 23:59 Intake Total 1150 1100 560 Output Total 950 650 150 Balance 200 1100 -90 -150 Meds/Results Medications: Active Medications Generic Name Dose Route Start Last Admin Trade Name Freq PRN Reason Stop Dose Admin Acetaminophen 650 mg 01/25/21 13:36 Acetaminophen 325 Mg Tablet PO Q4H PRN Mild Pain (1-3) Al Hydrox/Mg Hydrox/Simethicone 30 ml 01/25/21 13:36 Mag Hydrox/Al Hydrox/Simeth 30
[2021-01-30 08:00] LABS: Hepatitis B Surface Antigen Negative (Negative)
[2021-01-30 08:03] LABS: HIV 1/2 Ab P24 Ag Result Negative (Negative)
[2021-01-30 08:06] LABS: HAV RESULT Negative (Negative); Hepatitis B Core IgM Result Negative (Negative)
[2021-01-30 08:18] LABS: Hepatitis C Virus Antibody Negative (Negative)
--- NOTE | 2021-01-30 08:59 | PCOTNOTE ---
OT evaluation attempted this AM. Per RN, hold until daughter arrives to help motivate patient. Will attempt OT evaluation at later time.
--- NOTE | 2021-01-30 09:00 | PCPTNOTE ---
Attempted PT eval. Holding until daughter here to help motivate pt. Will follow.
[2021-01-30 09:38] LABS: Hematocrit 27.4 % (37.0-47.0); Mean Corpuscular HGB Conc 32.8 g/dl (32-36); Mean Corpuscular Hemoglobin 33.8 pg (26-34); Mean Platelet Volume 8.6 fl (7.4-10.4); Platelet Count Result 160 k/mm3 (150-375); Red Blood Count 2.66 M/mm3 (4.2-5.4); Red Cell Distribution Width 12.9 % (11.5-14.5); White Blood Count 4.9 K/mm3 (4.5-10.0)
[2021-01-30] MEDS: PANTOPRAZOLE SODIUM IV 40 MG VIAL IV PUSH ×2 (09:45→20:01)
--- NOTE | 2021-01-30 09:55 | PCPTNOTE ---
Per Racquel MASTERS, hold therapy due to pt to having a series of tests this morning. Will try again this afternoon.
--- NOTE | 2021-01-30 09:55 | PCOTNOTE ---
Per RN, Hold therapy this AM until all testing complete. Will attempt OT evaluation at later time.
[2021-01-30 09:58] LABS: Anion Gap 8 mmol/L (8-16); Blood Urea Nitrogen 15 mg/dL (7-17); Calcium 9.1 mg/dL (8.4-10.2); Carbon Dioxide 24 mmol/L (22-30); Chloride 104 mmol/L (98-107); Estimated CRCL calculation 47 ml/min; Estimated Glomerular Filt Rate > 60; Glucose 69 mg/dL (65-105); Sodium 136 mmol/L (137-145)
--- NOTE | 2021-01-30 10:08 | WPDANESEPPF ---
Anes - Initial Pre Proc Eval Procedure: Operation Date: 01/27/21 14:45 Proposed Procedures p Esophagogastroduodenoscopy - Emery Richardson MD Operation Date: 01/28/21 11:15 Proposed Procedures p Esophagogastroduodenoscopy - Emery Richardson MD Operation Date: 01/30/21 12:45 Proposed Procedures p Esophagogastroduodenoscopy - Emery Richardson MD Date/Time: 01/30/21 10:08 Surgeon: Annie Arreola PA-C Pre Op Diagnosis: syncope/urinary tract infection/dehydration Patient Data Age: 75 Gender: F Height: 1.63 m Weight: 71.8 kg Last Vital Signs Temp 36.3 C L 01/30/21 06:00 Pulse 91 01/30/21 06:00 Resp 21 H 01/30/21 06:00 BP 126/70 01/30/21 06:00 Pulse Ox 100 01/30/21 06:00 Allergies Allergy/AdvReac Type Severity Reaction Status Date / Time No Known Drug Allergies Allergy Mild Unknown Verified 01/30/21 12:21 Home Medications Medication Instructions Recorded Confirmed Type atenolol 50 mg-chlorthalidone 25 See Rx Instructions .ROUTE .COMPLEX 11/02/19 01/02/21 History mg tablet simvastatin 40 mg tablet 40 mg PO DAILY 11/02/19 01/02/21 History potassium chloride 10 mEq 10 meq PO DAILY #90 tablet 11/05/20 01/25/21 Rx tablet,extended release comp.stocking,knee,long,medium #12 ea 01/02/21 01/02/21 Rx furosemide 40 mg tablet 20 mg PO QAM #90 tablet 01/02/21 01/25/21 Rx lisinopril 01/25/21 History Laboratory Tests 01/27/21 01/29/21 01/29/21 05:11 05:38 05:38 WBC RBC Hgb Hct MCV MCH MCHC RDW Plt Count MPV Sodium Potassium Chloride Carbon Dioxide Anion Gap BUN Creatinine Estim Creat Clear Calc Estimated GFR Glucose Calcium Intrinsic Factor (Block Negative (Negative) RPR Hepatitis A IgM Ab Negative (Negative) Hep Bs Antigen Negative (Negative) Hep B Core IgM Ab Negative (Negative) Hepatitis C Ab Screen Negative (Negative) HIV 1&2 Ab/P24 Ag 4thGn Negative (Negative) SARS-CoV-2 RNA (RT-PCR) 01/30/21 01/30/21 01/30/21 00:59 09:17 09:17 WBC 4.9 K/mm3 K/mm3 (4.5-10.0) RBC 2.66 M/mm3 L M/mm3 (4.2-5.4) Hgb 9.0 g/dL L g/dL (12.0-15.0) Hct 27.4 % L % (37.0-47.0) MCV 103.0 fl H fl (80-100) MCH 33.8 pg pg (26-34) MCHC 32.8 g/dl g/dl (32-36) RDW 12.9 % % (11.5-14.5) Plt Count 160 k/mm3 k/mm3 (150-375) MPV 8.6 fl fl (7.4-10.4) Sodium 136 mmol/L L mmol/L (137-145) Potassium Pending Chloride 104 mmol/L mmol/L (98-107) Carbon Dioxide 24 mmol/L mmol/L (22-30) Anion Gap 8 mmol/L mmol/L (8-16) BUN 15 mg/dL mg/dL (7-17) Creatinine 0.90 mg/dL mg/dL (0.7-1.0) Estim Creat Clear Calc 47 ml/min ml/min Estimated GFR > 60 (59 - ) Glucose 69 mg/dL mg/dL (65-105) Calcium 9.1 mg/dL mg/dL (8.4-10.2) Intrinsic Factor (Block RPR Hepatitis A IgM Ab Hep Bs Antigen Hep B Core IgM Ab Hepatitis C Ab Screen HIV 1&2 Ab/P24 Ag 4thGn SARS-CoV-2 RNA (RT-PCR) Pending 01/30/21 09:17 WBC RBC Hgb Hct MCV MCH MCHC RDW Plt Count MPV Sodium Potassium Chloride Carbon Dioxide Anion Gap BUN Creatinine Estim Creat Clear Calc Estimated GFR Glucose Calcium Intrinsic Factor (Block RPR Pending Hepatitis A IgM Ab Hep Bs Antigen H
[2021-01-30 10:28] LABS: Potassium 3.7 mmol/L (3.4-5.0)
[2021-01-30 13:21] LABS: SARS-CoV-2 RNA PCR Negative
--- NOTE | 2021-01-30 14:11 | PCPTNOTE ---
Attempted PT eval. Pt having EGD. Will try again tomorrow.
--- NOTE | 2021-01-30 14:12 | PCOTNOTE ---
OT evaluation attempted. Patient down for EGD. Will attempt OT evaluation at later time.
--- NOTE | 2021-01-30 15:14 | PCNFU ---
Nutrition Follow-Up Complete: Inadequate oral intake related to nausea and vomiting as evidenced by patient reported weight loss of 50 lbs. in the past three months. goal: Patient to meet estimated nutritional needs Limited progress towards goal. We will continue current goal. Pt current nutrition is Heart healthy. Nutrition recommendation: Regular with Ensure compact BID Last recorded weight is 71.8 kg,no new weight. Bowel Motility:+BM reported 3/2 Labs Reviewed:Na 136,Alb 3.0 Meds Noted:Vit B-1, Ativan,LR, Folic Acid, Protonix,Rocephin. Additional Notes: Nutrition follow up. Spoke with ELISE Valencia today regarding patients nutritional status. Patient having EGD today, no results documented at this time. Discussed nutrition options. Recommendations: liberalize diet to regular with Ensure compact on trays-chocolate. Due to patients behavior reported, PPN would be more appropriate at this time. Patient does have a peripheral line in at this time. Clinimix E 4.25/5 at 40 ml/hr with 250 ml of 20% Lipid Emulsion which will provide an additional 1182 kcals and 48 gms protein. PPN would be meeting 81% of patients caloric needs. Monitoring; patients labs, medications, weight, and oral intake every 3 days.
--- NOTE | 2021-01-30 15:23 | PM.IMPN ---
Progress Note: A&P Assessment and Plan (1) Neurocognitive disorder: Code(s): R41.9 - Unspecified symptoms and signs involving cognitive functions and awareness Status: Acute Assessment and Plan: Multifactorial in etiology. Suspect acute delirium related to alcohol withdrawal and metabolic encephalopathy due to UTI superimposed on advanced dementia. She has been combative and agitated. She is refusing oral medications. Head CT showed no acute findings. TSH, B12, folate within normal limits. Hepatitis panel and HIV negative. Case discussed with psychiatrist Dr. Branch on 01/29/21. His input is greatly appreciated. Ativan 0.5 mg p.o. t.i.d. as needed for agitation. Transition to IM if not tolerating p.o. intake. Per Dr. Branch, IV Ativan should be avoided. Zyprexa 5 mg p.o. b.i.d. as needed for agitation. Proceed with IM if necessary Scheduled Zyprexa 2.5 mg p.o. q.h.s. with IM available if unable to give PO RPR pending (2) Anorexia: Code(s): R63.0 - Anorexia Status: Acute Assessment and Plan: She has not eaten in about 2-3 days. She is refusing to eat or drink. Initial concern was that this was related to esophageal dysmotility, however there were no specific findings on EGD to explain anorexia. Suspect this is mostly related to her cognitive decline. Discussed case with dietitian who is following. Continue gentle IV fluids She was NPO today so has not eaten anything. We will see how she does with dinner tonight. If she still does not eat/drink anything, will need to proceed with PPN via peripheral IV. Family wishes to proceed with this and wishes to consider feeding tube if needed. (3) Nausea and vomiting: Code(s): R11.2 - Nausea with vomiting, unspecified Status: Acute Assessment and Plan: Ongoing 2-3 weeks prior to presentation with very poor oral intake. She admits to drinking vodka (approximately 3 shots daily) but quit drinking 2 weeks ago which raised suspicion for gastritis, esophagitis, or malignancy, although no findings noted on EGD. Abdominal US demonstrated cholelithiasis and diffuse hepatic steatosis. Abdominal duplex US showed no significant stenosis to suggest chronic mesenteric ischemia. UGI x-ray with barium swallow showed severe esophageal dysmotility. EGD performed on 01/30/2021 with no findings of stricture other explanation. Nausea and vomiting seems to have resolved. Gastroenterology following input is appreciated Continue antiemetics as needed Continue IV Protonix b.i.d. (4) Weight loss: Code(s): R63.4 - Abnormal weight loss Status: Acute Assessment and Plan: Likely due to poor oral intake. She is malnourished due to alcohol abuse. CT abd/pelvis without evidence of malignancy and CXR unremarkable. No significant findings on EGD. Plan as above. Monitor oral intake. (5) Urinary tract infection: Code(s): N39.0 - Urinary tract infection, site not specified Status: Acute Assessment and Plan: Urinalysis abnormal upon presentation. Urine culture showed >100,000 CFU Klebsiella. WBC normal and patient is afebrile. Continue ceftriaxone based on sensitivities. She has received 4 doses of IV Rocephin. Plan to complete at least 7 days of antibiotic therapy. preliminary blood cultures with no growth to date. Monitor final cultures (6) Alcohol abuse: Code(s): F10.10 - Alcohol abuse, uncomplicated Status: Acute Assessment and Plan: She reports history of daily vodka use but reports that she quit drinking 2 weeks ago and daughter confirms this. CIWA scores have been ranging 4-17, however this seems to be due to her agitation. Even if her last drink was on the day of admission (01/25), she would be outside the window of acute alcohol withdrawal continue monitoring with CIWA protocol. Librium has been discontinued. Do not suspect acute alcohol withdrawal despite elevated C
[2021-01-31] VITALS (7 sets, daily range): BP systolic 114–133; BP diastolic 61–68; PULSE 71–100; RESP 16–18; TEMP 36.5–36.7; O2SAT 94–100
--- NOTE | 2021-01-31 09:30 | PCOTNOTE ---
Attempted OT evaluation twice this morning, but unable to complete. First attempt, RN reported that she needed to straight cath patient, but that she would be available for evaluation after straight cath. Second attempt, nursing still with patient. Will attempt again later today.
[2021-01-31] MEDS: LACTATED RINGERS 1,000 ML 150 ML IV CONT (10:21)
[2021-01-31] MEDS: FOLIC ACID 1 MG TABLET PO (10:22)
[2021-01-31] MEDS: THIAMINE HCL 100 MG TABLET PO (10:22)
[2021-01-31] MEDS: PANTOPRAZOLE SODIUM IV 40 MG VIAL IV PUSH ×2 (10:22→20:40)
--- NOTE | 2021-01-31 10:28 | WPDANESPN ---
Anes - Prog Note Post-Op Date/Time: 01/31/21 10:28 Cardiovascular status: normal Respiratory status: normal Airway patency: baseline Mental status: baseline Post-Op hydration status: normal Vital Signs: Last Vital Signs Temp 36.5 C 01/31/21 05:39 Pulse 100 01/31/21 05:39 Resp 18 01/31/21 05:39 BP 133/61 01/31/21 05:39 Pulse Ox 94 01/31/21 05:39 Pain Score (VAS): 12/07 I/O: Intake & Output 01/30/21 01/31/21 01/31/21 23:59 07:59 15:59 Intake Total 0 240 Output Total 1800 0 Balance -1800 0 240 Laboratory Tests 01/30/21 09:17 01/30/21 09:17 01/30/21 01/30/21 00:59 09:17 Potassium 3.7 SARS-CoV-2 RNA (RT-PCR) Negative Post-procedural complaints: none Patient Feedback: Patient satisfied with anesthetic care.
[2021-01-31] MEDS: SODIUM CHLORIDE 0.9% IV 2,000 ML 999 ML (11:00)
--- NOTE | 2021-01-31 11:09 | PM.IMPN ---
Progress Note: A&P Assessment and Plan (1) Syncope: Code(s): R55 - Syncope and collapse Status: Acute Assessment and Plan: Her daughter reported a syncopal episode at home 1 week ago. She had recent echocardiogram performed 11/07/20 which demonstrated EF 55% and grade I diastolic dysfunction, segmental hypokinesis, moderate tricuspid regurgitation. She was orthostatic on orthostatic BP reading. Suspect this was related to dehydration given poor PO intake and diuretics. Carotid doppler with <50% stenosis of bilateral ICA. Telemetry reviewed showing NSR. Patient had syncopal episode today around 11:15. Appears to be vasovagal in origin as it occurred when having a bowel movement. Likely exacerbated by dehydration given poor PO intake. Give 1 L fluid bolus and assess volume status. Consider additional fluid bolus if needed. Continue IV maintenance fluids. Monitor on telemetry for 24 hours Continue to monitor orthostatics. FILIBERTO hose have been ordered but she refused. Appreciate cardiology input (2) Neurocognitive disorder: Code(s): R41.9 - Unspecified symptoms and signs involving cognitive functions and awareness Status: Acute Assessment and Plan: Multifactorial in etiology. Suspect acute delirium related to alcohol withdrawal and metabolic encephalopathy due to UTI superimposed on advanced dementia. She has been combative and agitated. Head CT showed no acute findings. TSH, B12, folate within normal limits. Hepatitis panel and HIV negative. Mental status appears improved today and she is not agitated or restless. Case discussed with psychiatrist Dr. Branch on 01/29/21. His input is greatly appreciated. Ativan 0.5 mg p.o. t.i.d. as needed for agitation. Transition to IM if not tolerating p.o. intake. Per Dr. Branch, IV Ativan should be avoided. Zyprexa 5 mg p.o. b.i.d. as needed for agitation. Proceed with IM if necessary Scheduled Zyprexa 2.5 mg p.o. q.h.s. with IM available if unable to give PO RPR pending (3) Anorexia: Code(s): R63.0 - Anorexia Status: Acute Assessment and Plan: She was refusing to eat or drink. Initial concern was that this was related to esophageal dysmotility, however there were no specific findings on EGD to explain anorexia. Suspect this is mostly related to her cognitive decline. She did not eat yesterday, but this morning drank an entire Ensure Clear with assistance. Advance to regular diet and allow her to pick foods she likes to encourage PO intake. Assistance needs to be provided with meals. Discussed case with dietitian who is following. Continue IV fluids PPN via peripheral IV being considered. She has shown some improvement today, so will monitor her and see if she eats lunch and proceed with PPN if still little to no intake. (4) Nausea and vomiting: Code(s): R11.2 - Nausea with vomiting, unspecified Status: Acute Assessment and Plan: Ongoing 2-3 weeks prior to presentation with very poor oral intake. She admits to drinking vodka (approximately 3 shots daily) but quit drinking 2 weeks ago which raised suspicion for gastritis, esophagitis, or malignancy, although no findings noted on EGD. Abdominal US demonstrated cholelithiasis and diffuse hepatic steatosis. Abdominal duplex US showed no significant stenosis to suggest chronic mesenteric ischemia. UGI x-ray with barium swallow showed severe esophageal dysmotility. EGD performed on 01/30/2021 with no findings of stricture other explanation. Nausea and vomiting seems to have resolved. Gastroenterology following and input is appreciated Continue antiemetics as needed Continue IV Protonix b.i.d. (5) Weight loss: Code(s): R63.4 - Abnormal weight loss Status: Acute Assessment and Plan: Likely due to poor oral intake. She is malnourished due to alcohol abuse. CT abd/pelvis without evidence of malignancy and CXR unremarkable. No signific
--- NOTE | 2021-01-31 11:10 | PCOTNOTE ---
Attempted OT evaluation, but unable to complete at this time. Patient on commode upon arrival. Attempted to assist FLEET SERVICE MANAGER with hygiene tasks, but patient became lethargic and somewhat unresponsive. Patient was able to open eyes to name. RN summoned and rapid response called. Will attempt again at another time.
--- NOTE | 2021-01-31 11:19 | PCPTNOTE ---
Orders received....patient sitting on commode prior to eval...became unresponsive...RAPID RESPONSE called....will see tomorrow as appopriate
[2021-01-31 11:20] LABS: Glucose Point of Care 104 (65-105)
--- NOTE | 2021-01-31 14:01 | PC.NURSE ---
Pt had what appeared to be a vagal response while on bedside commode this Am. Pt when non responsive and slumped to right, she did arouse with sternal rub but then returned to non responsive Pt was assisted to bed, rapid response called, VS 108/63 74 99%RA. She became responsive but sluggish when in bed. Dr. Oliver and Annie at bedside reprots to give bolus of NS wide open times 2 liters. Annie returned call and hr later and reports to only give 1L bolus as pt has cardiac issues. Family arrived to facility and made aware of change in condition this Am. Pt has returned to her baseline at this time.
[2021-01-31] MEDS: SODIUM CHLORIDE 0.9% IV 1,000 ML 85 ML IV CONT (14:16)
--- NOTE | 2021-01-31 21:50 | PC.NURSE ---
Called [facility] to reconcile patients medications she currently was taking at home.
[2021-02-01] VITALS (10 sets, daily range): BP systolic 110–141; BP diastolic 50–59; PULSE 71–97; RESP 14–18; TEMP 36.7–36.8; O2SAT 98–100
[2021-02-01] MEDS: SODIUM CHLORIDE 0.9% IV 1,000 ML 85 ML IV CONT (01:34)
--- NOTE | 2021-02-01 05:22 | PC.NURSE ---
Notified Dr that patient is refusing lab to draw her blood and for us to restart her IV. She does not have an IV access at this time. Darcy stated, I want to go home, I am going home today. Dr. Daniel said just document she is refusing.
--- NOTE | 2021-02-01 05:24 | PC.NURSE ---
Nursing supervisor car and yard, Vida Duffy RN spoke with patient regarding her refusing IV and blood draws. Pt still is refusing IV and lab to draw her blood. She is still saying she wants to go home today. Compatibility Test Engineer advised me to notify Dr. Daniel she is refusing treatment.
[2021-02-01] MEDS: THIAMINE HCL 100 MG TABLET PO (07:48)
[2021-02-01] MEDS: FOLIC ACID 1 MG TABLET PO (07:48)
--- NOTE | 2021-02-01 08:51 | PCOTNOTE ---
Initiated OT evaluation, but unable to complete entirely as patient unwilling to perform any functional mobility. Will attempt to complete later today.
--- NOTE | 2021-02-01 09:01 | PCPTNOTE ---
PATIENT REFUSES AGAIN...HAS DECLINED THERAPY SEVERAL DAYS IN A ROW...PULLED HER IV'S OUT EARLIER...SHE IS ADAMANTLY REFUSING TO PARTICIPATE EVEN FOR A FEW MINUTES...SPOKE WITH PA WHO ASKED US TO CONTINUE TO TRY PT/OT EVAL IS NEEDED FOR PLACEMENT...PATIENT DID PROVIDE SOME PRIOR HISTORY, BUT UNSURE OF RELIABILITY...SHE STATES THAT SHE IS GOING HOME TODAY
[2021-02-01 09:06] LABS: Rapid Plasma Reagin Non-Reactive (NonReactive)
--- NOTE | 2021-02-01 09:06 | PC.NURSE ---
Solution Design [employer] Analysis Manager called and spoke with Annie OLIVARES made aware PT IV infiltrated in early AM, Pt is refusing to allow another IV to be placed at this time. Pt also refused Am labs. Annie reports to retry this afternoon.
--- NOTE | 2021-02-01 09:40 | PM.PNCARD ---
Progress Note: A&P Assessment and Plan (1) Acute dehydration: Code(s): E86.0 - Dehydration Status: Acute Assessment and Plan: Received IVF. (2) Urinary tract infection: Code(s): N39.0 - Urinary tract infection, site not specified Status: Acute Assessment and Plan: On IV antibiotics. Managed by hospitalist. (3) LBBB (left bundle branch block): Code(s): I44.7 - Left bundle-branch block, unspecified Status: Chronic (4) Dyslipidemia: Code(s): E78.5 - Hyperlipidemia, unspecified Status: Chronic Assessment and Plan: On statin. (5) Dyspnea on exertion: Code(s): R06.00 - Dyspnea, unspecified Status: Acute Assessment and Plan: Will cancel Lexiscan myoview stress test as this is not urgent and not the reason why she is in hospital. Will perform as outpatient once she is no longer confused and recovered from UTI and worked up for anemia. No further cardiac workup at this time. (6) Edema: Code(s): R60.9 - Edema, unspecified Status: Chronic Assessment and Plan: Resolved. Probably due to venous insufficiency. Hold diuretics. (7) Hypertension: Code(s): I10 - Essential (primary) hypertension Status: Chronic Assessment and Plan: Stable. Hold her antihypertensives. (8) Anemia: Code(s): D64.9 - Anemia, unspecified Status: Acute Assessment and Plan: Probably chronic, and worsened by dilution. Managed by hospitalist. (9) Dizziness: Code(s): R42 - Dizziness and giddiness Status: Acute Assessment and Plan: No syncope per patient. Could also be due to alcoholism as she states she gets off balance not dizziness. Due to dehydration from diuretics and poor PO intake. (10) PAT (paroxysmal atrial tachycardia): Code(s): I47.1 - Supraventricular tachycardia Status: Acute Assessment and Plan: Had a few short runs of PAT. Used to be on Atenolol at home. Will start Toprol XL 25 mg daily to suppress PAC's and PAT. (11) Syncope: Code(s): R55 - Syncope and collapse Status: Acute Assessment and Plan: Probably vasovagal as she was on commode having bowel movement at the time it happened. Subjective Date/time seen: 03/07/21 09:40 Patient is alert, and she knew she is at [facility] but thought year is 2006. Denies chest pain or sob. She could not tell me about passing out yesterday on commode, she thought she went to the park yesterday. Exam Const: General: cooperative and comfortable Resp: Auscultation: clear to auscultation bilaterally, no crackles, no rales, no rhonchi and no wheezes Cardio: Jugular venous distension: no JVD Rate: regular rate Rhythm: regular rhythm Heart sounds: no murmurs Peripheral pulses: dorsalis pedis present GI: GI Palp: No abdominal tenderness and Yes Soft to palpation Neuro: General: oriented to person, oriented to place and oriented to time Extrem: Right lower extremity: no edema Left lower extremity: no edema Objective Data Vital Signs Vital Signs: Vital Signs - 24 hr 01/31/21 12:00 01/31/21 14:00 01/31/21 16:00 Temperature 98.1 F Pulse Rate 90 100 92 Respiratory Rate 18 Blood Pressure 114/62 Pulse Oximetry 100 01/31/21 20:00 01/31/21 21:11 02/01/21 00:00 Temperature 97.8 F Pulse Rate 92 96 88 Respiratory Rate 16 Blood Pressure 124/68 Pulse Oximetry 99 02/01/21 04:00 02/01/21 06:00 Temperature 98.2 F Pulse Rate 97 71 Respiratory Rate 18 Blood Pressure 141/59 H Pulse Oximetry 98 Intake/Output Intake/Output: Intake & Output 01/29/21 01/30/21 01/31/21 02/01/21 23:59 23:59 23:59 23:59 Intake Total 082 071 6834 1290 Output Total 650 1950 1600 650 Balance -90 -2940 -230 640 Meds/Results Medications: Active Medications Generic Name Dose Route Start Last Admin Trade Name Freq PRN Reason Stop Dose Admin Acetaminophen 650 mg
[2021-02-01] MEDS: METOPROLOL SUCCINATE EXT REL 25 MG TABCR PO (11:49)
--- NOTE | 2021-02-01 15:35 | PM.IMPN ---
Progress Note: A&P Assessment and Plan (1) Syncope: Code(s): R55 - Syncope and collapse Status: Acute Assessment and Plan: Her daughter reported a syncopal episode at home 1 week ago. She had recent echocardiogram performed 11/07/20 which demonstrated EF 55% and grade I diastolic dysfunction, segmental hypokinesis, moderate tricuspid regurgitation. She was orthostatic on orthostatic BP reading. Suspect this was related to dehydration given poor PO intake and diuretics. Carotid doppler with <50% stenosis of bilateral ICA. Telemetry reviewed showing NSR. Patient had syncopal episode yesterday around 11:15. Appears to be vasovagal in origin as it occurred when having a bowel movement. Likely exacerbated by dehydration given poor PO intake. She was given IV fluid bolus and rehydrated with maintenance fluids. Continued IV fluids recommended, however no current IV access and patient has refused IV Monitor on telemetry Continue to monitor orthostatics. FILIBERTO hose have been ordered but she refused. Appreciate cardiology input (2) Neurocognitive disorder: Code(s): R41.9 - Unspecified symptoms and signs involving cognitive functions and awareness Status: Acute Assessment and Plan: Multifactorial in etiology. Suspect acute delirium related to alcohol withdrawal and metabolic encephalopathy due to UTI superimposed on advanced dementia. She is experiencing visual hallucinations. She has been combative and agitated. Head CT showed no acute findings. TSH, B12, folate within normal limits. Hepatitis panel, RPR, HIV negative. Agitation and restlessness have improved. Case discussed with psychiatrist Dr. Branch on 01/29/21. His input is greatly appreciated. Scheduled Zyprexa 2.5 mg p.o. q.h.s. with IM available if unable to give PO Ativan 0.5 mg p.o. t.i.d. as needed for agitation. Transition to IM if not tolerating p.o. intake. Per Dr. Branch, IV Ativan should be avoided. Zyprexa 5 mg p.o. b.i.d. as needed for agitation. Proceed with IM if necessary (3) Anorexia: Code(s): R63.0 - Anorexia Status: Acute Assessment and Plan: She was refusing to eat or drink. Initial concern was that this was related to esophageal dysmotility, however there were no specific findings on EGD to explain anorexia. Suspect this is mostly related to her cognitive decline. Yesterday she ate some of her meals and drank several Ensure clears. Oral intake is decreased again today. Advance to regular diet and allow her to pick foods she likes to encourage PO intake. Assistance needs to be provided with meals. Discussed case with dietitian who is following. Given continued decrease in PO intake, I would like to proceed with PPN at this time, however we do not have peripheral IV access. Will continue to attempt PO feedings and monitor tonight. If still not eating/drinking appropriately, will need to proceed with PPN. (4) Nausea and vomiting: Code(s): R11.2 - Nausea with vomiting, unspecified Status: Acute Assessment and Plan: Ongoing 2-3 weeks prior to presentation with very poor oral intake. She admits to drinking vodka (approximately 3 shots daily) but quit drinking 2 weeks ago which raised suspicion for gastritis, esophagitis, or malignancy, although no findings noted on EGD. Abdominal US demonstrated cholelithiasis and diffuse hepatic steatosis. Abdominal duplex US showed no significant stenosis to suggest chronic mesenteric ischemia. UGI x-ray with barium swallow showed severe esophageal dysmotility. EGD performed on 01/30/2021 with no findings of stricture other explanation. Nausea and vomiting seems to have resolved. Gastroenterology following and input is appreciated Continue antiemetics as needed Continue IV Protonix b.i.d. (5) Weight loss: Code(s): R63.4 - Abnormal weight loss Status: Acute Assessment and Plan: Likely due to poor oral intake. She i
[2021-02-01] MEDS: cefTRIAXone 1 GM VIAL IM (16:57)
[2021-02-01] MEDS: WATER, STERILE FOR INJECTION 10 ML VIAL XX (17:04)
[2021-02-02] VITALS (9 sets, daily range): BP systolic 114–136; BP diastolic 47–69; PULSE 79–94; RESP 14–16; TEMP 36.6–36.8; O2SAT 100
[2021-02-02 04:56] LABS: Hematocrit 23.7 % (37.0-47.0); Hemoglobin 7.9 g/dL (12.0-15.0); Mean Corpuscular HGB Conc 33.3 g/dl (32-36); Mean Corpuscular Hemoglobin 33.9 pg (26-34); Mean Corpuscular Volume 101.7 fl (80-100); Mean Platelet Volume 8.6 fl (7.4-10.4); Platelet Count Result 151 k/mm3 (150-375); Red Blood Count 2.33 M/mm3 (4.2-5.4); Red Cell Distribution Width 13.2 % (11.5-14.5); White Blood Count 7.2 K/mm3 (4.5-10.0)
[2021-02-02 05:04] LABS: Ammonia < 9 umol/L (9-30)
[2021-02-02 05:08] LABS: Anion Gap 3 mmol/L (8-16); Blood Urea Nitrogen 8 mg/dL (7-17); Calcium 8.5 mg/dL (8.4-10.2); Carbon Dioxide 27 mmol/L (22-30); Chloride 107 mmol/L (98-107); Estimated CRCL calculation 47 ml/min; Estimated Glomerular Filt Rate > 60; Glucose 110 mg/dL (65-105); Magnesium 1.1 mg/dL (1.6-2.3); Potassium 2.5 mmol/L (3.4-5.0); Sodium 137 mmol/L (137-145)
[2021-02-02] MEDS: SODIUM CHLORIDE 0.9% IV 1,000 ML 85 ML IV CONT (05:39)
[2021-02-02] MEDS: MAGNESIUM SULF 4 GM/WATER100ML 4 GM/100 ML BAG IVPB (06:22)
[2021-02-02] MEDS: POTASSIUM CHLORIDE 20 MEQ PACKET (FOR LIQUID) 40 MEQ PO (06:23)
--- NOTE | 2021-02-02 08:13 | PM.PNCARD ---
Progress Note: A&P Assessment and Plan (1) Acute dehydration: Code(s): E86.0 - Dehydration Status: Acute Assessment and Plan: Received IVF. Low Potassium at 2.5 and Mag at 1.1. Replete potassium and Mag. (2) Urinary tract infection: Code(s): N39.0 - Urinary tract infection, site not specified Status: Acute Assessment and Plan: On IV antibiotics. Managed by hospitalist. (3) LBBB (left bundle branch block): Code(s): I44.7 - Left bundle-branch block, unspecified Status: Chronic (4) Dyslipidemia: Code(s): E78.5 - Hyperlipidemia, unspecified Status: Chronic Assessment and Plan: On statin. (5) Dyspnea on exertion: Code(s): R06.00 - Dyspnea, unspecified Status: Acute Assessment and Plan: Will cancel Lexiscan myoview stress test as this is not urgent and not the reason why she is in hospital. Will perform as outpatient once she is no longer confused and recovered from UTI and worked up for anemia. No further cardiac workup at this time. (6) Edema: Code(s): R60.9 - Edema, unspecified Status: Chronic Assessment and Plan: Resolved. Probably due to venous insufficiency. Hold diuretics. (7) Hypertension: Code(s): I10 - Essential (primary) hypertension Status: Chronic Assessment and Plan: Stable. Hold her antihypertensives. (8) Anemia: Code(s): D64.9 - Anemia, unspecified Status: Acute Assessment and Plan: Probably chronic, and worsened by dilution. Managed by hospitalist. (9) Dizziness: Code(s): R42 - Dizziness and giddiness Status: Acute Assessment and Plan: No syncope per patient. Could also be due to alcoholism as she states she gets off balance not dizziness. Due to dehydration from diuretics and poor PO intake. (10) PAT (paroxysmal atrial tachycardia): Code(s): I47.1 - Supraventricular tachycardia Status: Acute Assessment and Plan: Had a few short runs of PAT on 01/31/21. Had 1 short run of PAT on 02/01/21. Used to be on Atenolol at home. On Toprol XL 25 mg daily to suppress PAC's and PAT. (11) Syncope: Code(s): R55 - Syncope and collapse Status: Acute Assessment and Plan: Probably vasovagal as she was on commode having bowel movement at the time it happened. Subjective Date/time seen: 02/02/21 08:13 Patient is very sleepy this morning. She is arousable, then goes immediately back to sleep. Exam Const: General: other (drowsy) Resp: Auscultation: clear to auscultation bilaterally, no crackles, no rales, no rhonchi and no wheezes Cardio: Jugular venous distension: no JVD Rate: regular rate Rhythm: regular rhythm Heart sounds: no murmurs Peripheral pulses: dorsalis pedis present GI: GI Palp: No abdominal tenderness and Yes Soft to palpation Neuro: General: oriented to person, oriented to place and oriented to time Extrem: Right lower extremity: no edema Left lower extremity: no edema Objective Data Vital Signs Vital Signs: Vital Signs - 24 hr 02/01/21 09:00 02/01/21 11:49 02/01/21 12:00 Temperature Pulse Rate 95 92 92 Pulse Rate [Monitor] 95 92 Respiratory Rate Blood Pressure Pulse Oximetry 02/01/21 15:05 02/01/21 16:00 02/01/21 20:00 Temperature 98.3 F Pulse Rate 87 87 92 Pulse Rate [Monitor] 87 87 Respiratory Rate 14 16 Blood Pressure 110/50 L 116/54 L Pulse Oximetry 100 99 02/01/21 20:53 02/02/21 00:00 02/02/21 04:00 Temperature 98.1 F Pulse Rate 82 92 88 Pulse Rate [Monitor] 87 87 Respiratory Rate 16 Blood Pressure 116/54 L 116/54 L 136/69 Pulse Oximetry 99 02/02/21 06:00 Temperature 97.9 F Pulse Rate 94 Pulse Rate [Monitor] Respiratory Rate 14 Blood Pressure 136/69 Pulse Oximetry 100 Intake/Output Intake/Output: Intake & Output 01/30/21 01/31/21 02/01/21 02/02/21 23:59 23:59 23:59 23:59 Intake Total 200 1370 1530 115
[2021-02-02] MEDS: FOLIC ACID 1 MG TABLET PO (09:18)
[2021-02-02] MEDS: PANTOPRAZOLE SODIUM IV 40 MG VIAL IV PUSH ×2 (09:18→20:37)
[2021-02-02] MEDS: METOPROLOL SUCCINATE EXT REL 25 MG TABCR PO (09:19)
[2021-02-02] MEDS: THIAMINE HCL 100 MG TABLET PO (09:19)
--- NOTE | 2021-02-02 11:27 | PCNFU ---
Nutrition Follow-Up Complete: Inadequate oral intake related to nausea and vomiting as evidenced by patient reported weight loss of 50 lbs. in the past three months. Goal: Patient to meet estimated nutritional needs. Limited progressing towards goal. We will continue current goal. Current diet order: regular with Ensure Clear apple BID. Last recorded weight is 71.8 kg, no new weight reported since admit. Bowel Motility:+BM reported 02/01 Labs Reviewed:Glu 110,K 2.5,Hct 23.7 Meds Noted: Thiamine,Folic Acid, Toprol, Zyprexa,Protonix, NS Additional Notes: Patient seen today for nutrition follow up. Spoke with patients daughter today. We discussed her current diet order and po intake. Per nursing patient ate bites of applesauce today. Spoke with ELISE Valencia today and PPN would be appropriate at this time. Patient does have a peripheral line in at this time. Clinimix E 4.25/5 at 40 ml/hr with 250 ml of 20% Lipid Emulsion which will provide an additional 1182 kcals and 48 gms protein. PPN would be meeting 81% of patients caloric needs. Monitoring: Monitor patients labs, medications, weight, and oral intake every Tuesday and Tuesday.
--- NOTE | 2021-02-02 13:28 | PM.IMPN ---
Progress Note: A&P Assessment and Plan (1) Syncope: Code(s): R55 - Syncope and collapse Status: Acute Assessment and Plan: Her daughter reported a syncopal episode at home 1 week ago. She had recent echocardiogram performed 11/07/20 which demonstrated EF 55% and grade I diastolic dysfunction, segmental hypokinesis, moderate tricuspid regurgitation. She was orthostatic on orthostatic BP reading. Suspect this was related to dehydration given poor PO intake and diuretics. Carotid doppler with <50% stenosis of bilateral ICA. Telemetry reviewed showing NSR. Patient had a subsequent syncopal episode 01/31/21. Appears to be vasovagal in origin as it occurred when having a bowel movement. Likely exacerbated by dehydration given poor PO intake. She was given IV fluid bolus and rehydrated with maintenance fluids. Telemetry reviewed with no abnormalities. Continue gentle IV fluids Discontinue tele Continue to monitor orthostatics. FILIBERTO hose have been ordered but she refused. Appreciate cardiology input (2) Neurocognitive disorder: Code(s): R41.9 - Unspecified symptoms and signs involving cognitive functions and awareness Status: Acute Assessment and Plan: Multifactorial in etiology. Suspect acute delirium related to alcohol withdrawal and metabolic encephalopathy due to UTI superimposed on advanced dementia. She is experiencing visual hallucinations. She has been combative and agitated. Head CT showed no acute findings. TSH, B12, folate within normal limits. Hepatitis panel, RPR, HIV negative. Agitation and restlessness have improved. Case discussed with psychiatrist Dr. Branch on 01/29/21. His input is greatly appreciated. Scheduled Zyprexa 2.5 mg p.o. q.h.s. with IM available if PO is refused Ativan 0.5 mg p.o. t.i.d. as needed for agitation. Transition to IM if not tolerating p.o. intake. Per Dr. Branch, IV Ativan should be avoided. Zyprexa 5 mg p.o. b.i.d. as needed for agitation. Proceed with IM if necessary I will ask Neurology to assess patient to ensure no additional organic cause for confusion (3) Anorexia: Code(s): R63.0 - Anorexia Status: Acute Assessment and Plan: She was refusing to eat or drink. Initial concern was that this was related to esophageal dysmotility, however there were no specific findings on EGD to explain anorexia. She is having minimal improvement with PO intake, but overall still very poor Will initiate PPN via peripheral IV. Advance to regular diet and allow her to pick foods she likes to encourage PO intake. Assistance needs to be provided with meals. Discussed case with dietitian who is following. (4) Nausea and vomiting: Code(s): R11.2 - Nausea with vomiting, unspecified Status: Acute Assessment and Plan: Ongoing 2-3 weeks prior to presentation with very poor oral intake. She has hx of alcohol abuse and quit drinking 2 weeks ago which raised suspicion for gastritis, esophagitis, or malignancy, although no findings noted on EGD. Abdominal US demonstrated cholelithiasis and diffuse hepatic steatosis. Abdominal duplex US showed no significant stenosis to suggest chronic mesenteric ischemia. UGI x-ray with barium swallow showed severe esophageal dysmotility. EGD performed on 01/30/2021 with no findings of stricture or other explanation for symptoms. Nausea and vomiting seems to have resolved. Gastroenterology following and input is appreciated Continue antiemetics as needed Continue IV Protonix b.i.d. (5) Weight loss: Code(s): R63.4 - Abnormal weight loss Status: Acute Assessment and Plan: Likely due to poor oral intake. She is malnourished due to alcohol abuse. CT abd/pelvis without evidence of malignancy and CXR unremarkable. No significant findings on EGD. Plan as above. Monitor oral intake. Initiate PPN (6) Urinary tract infection: Code(s): N39.0 - Urinary tract infect
--- NOTE | 2021-02-02 14:21 | WPDGIPROGNO ---
Progress Note: A&P Assessment and Plan (1) Gastric ulcer: Code(s): K25.9 - Gastric ulcer, unspecified as acute or chronic, without hemorrhage or perforation Status: Acute Assessment and Plan: egd showed non-bleeding ulcers (h pylori negative) and gastritis (pending final biopsy) but nothing otherwise to explain anorexia which is probably related to her confusion however she is eating more continue with ppi bid and avoid nsaid's will follow from afar, call if questions (2) Anorexia: Code(s): R63.0 - Anorexia Status: Acute Assessment and Plan: family is with her now and stimulating her more, less confused (3) Nausea and vomiting: Code(s): R11.2 - Nausea with vomiting, unspecified Status: Acute Assessment and Plan: resolved (4) Neurocognitive disorder: Code(s): R41.9 - Unspecified symptoms and signs involving cognitive functions and awareness Status: Acute (5) Confusion: Code(s): R41.0 - Disorientation, unspecified Status: Acute (6) Alcohol abuse: Code(s): F10.10 - Alcohol abuse, uncomplicated Status: Acute (7) Macrocytic anemia: Code(s): D53.9 - Nutritional anemia, unspecified Status: Acute Subjective Date/time seen: 02/02/21 14:21 Interval history: family member says that she is eating more and also participating in conversations Review of Systems Review of Systems: All systems reviewed & are unremarkable except as noted in HPI and below Exam Const: General: comfortable and no acute distress Other: awake, alert and oriented to self, she is talking more HENMT: General nose exam: Normal nares present Eyes: General: appearance normal, both eyes and all related structures Neck: Neck: supple Resp: Auscultation: clear to auscultation bilaterally Cardio: Rate: regular rate GI: Inspection: non-distended GI Palp: Yes Soft to palpation Auscultation: normal bowel sounds Neuro: Speech: normal speech Objective Data Vital Signs Vital Signs: Vital Signs - 24 hr 02/01/21 15:05 02/01/21 16:00 02/01/21 20:00 Temperature 98.3 F Pulse Rate 87 87 92 Pulse Rate [Monitor] 87 87 Respiratory Rate 14 16 Blood Pressure 110/50 L 116/54 L Pulse Oximetry 100 99 02/01/21 20:53 02/02/21 00:00 03/08/21 04:00 Temperature 98.1 F Pulse Rate 82 92 88 Pulse Rate [Monitor] 87 87 Respiratory Rate 16 Blood Pressure 116/54 L 116/54 L 136/69 Pulse Oximetry 99 02/02/21 06:00 02/02/21 08:00 02/02/21 09:19 Temperature 97.9 F Pulse Rate 94 79 83 Pulse Rate [Monitor] Respiratory Rate 14 14 Blood Pressure 136/69 Pulse Oximetry 100 100 02/02/21 12:00 02/02/21 14:00 Temperature 97.8 F Pulse Rate 88 87 Pulse Rate [Monitor] 88 Respiratory Rate 15 Blood Pressure 114/47 L Pulse Oximetry 100 Intake/Output Intake/Output: Intake & Output 01/30/21 01/31/21 02/01/21 02/02/21 23:59 23:59 23:59 23:59 Intake Total 200 1370 1530 1650 Output Total 1950 1600 925 250 Balance -1750 -181 798 1239 Meds/Results Medications: Active Medications Generic Name Dose Route Start Last Admin Trade Name Freq PRN Reason Stop Dose Admin Acetaminophen 650 mg 01/25/21 13:36 Acetaminophen 325 Mg Tablet PO Q4H PRN Mild Pain (1-3) Al Hydrox/Mg Hydrox/Simethicone 30 ml 01/25/21 13:36 Mag Hydrox/Al Hydrox/Simeth 30 Ml Udc PO Q6H PRN Indigestion Folic Acid 1 mg 01/28/21 09:00 02/02/21 09:18 Folic Acid 1 Mg Tablet PO 1 mg DAILY MILAGROS Administration Dextrose 1,000 mls @ 50 mls/hr 02/02/21 13:26 Dextrose 10% IV CONT .Q20H PRN if PN is interrupted Amino Acids/Electrolytes/Dextrose 2,000 mls @ 80 mls/hr 02/02/21 14:00 Clinimix E 4.25%/5% Solution IV CONT .Q24H MILAGROS Protocol Fat Emulsion Intravenous 250 mls @ 20.833 mls/hr 02/02/21 14:00 Lipids 20% IVPB Q24H MILAGROS Lorazepam 0.5 mg 01/29/21 11:57 Lorazepam (*Crx
[2021-02-02] MEDS: AMINO ACIDS 4.25%/D5W/LYTES/CA 2,000 ML 80 ML IV CONT (15:55)
[2021-02-02] MEDS: FAT EMULSIONS IV 20% 250 ML 20.83 ML IVPB (16:01)
[2021-02-02 17:57] LABS: Glucose Point of Care 130 (65-105)
[2021-02-02] MEDS: POTASSIUM CHLORIDE 20 MEQ TABLET PO (20:37)
[2021-02-03] VITALS (8 sets, daily range): BP systolic 90–119; BP diastolic 48–65; PULSE 83–97; RESP 16–18; TEMP 36–36.7; O2SAT 97–100; BMI 10.0
[2021-02-03 01:40] LABS: Glucose Point of Care 139 (65-105)
[2021-02-03 05:24] LABS: Basophils Percent Auto 0.3 % (0.2-1.2); Eosinophils Absolute Auto 0.1 K/mm3 (0-0.3); Hematocrit 23.8 % (37.0-47.0); Hemoglobin 7.9 g/dL (12.0-15.0); Immature Granulocyte Absolute 0.08 K/mm3 (0.00-0.031); Immature Granulocyte Percent A 1.1 % (0-0.5); Lymphocytes Absolute Auto 1.34 K/mm3 (0.9-3.2); Lymphocytes Percent Auto 18.5 % (18.3-44.2); Mean Corpuscular HGB Conc 33.2 g/dl (32-36); Mean Corpuscular Hemoglobin 33.5 pg (26-34); Mean Corpuscular Volume 100.8 fl (80-100); Mean Platelet Volume 8.8 fl (7.4-10.4); Monocytes Absolute Auto 0.7 K/mm3 (0.1-0.6); Monocytes Percent Auto 10.2 % (2.6-8.5); Neutrophils Percent Auto 68.9 % (45.5-73.1); Platelet Count Result 168 k/mm3 (150-375); Red Blood Count 2.36 M/mm3 (4.2-5.4); Red Cell Distribution Width 13.3 % (11.5-14.5); White Blood Count 7.3 K/mm3 (4.5-10.0)
[2021-02-03 05:36] LABS: Phosphorus 3.1 mg/dL (2.5-4.5)
[2021-02-03 05:43] LABS: Alanine Aminotransferase 8 U/L (4-35); Albumin Level 2.3 g/dL (3.5-5.1); Alkaline Phosphatase 88 U/L (38-126); Anion Gap 3 mmol/L (8-16); Aspartate Amino Transferase 18 U/L (14-36); Bilirubin,Total 0.2 mg/dL (0.2-1.3); Blood Urea Nitrogen 15 mg/dL (7-17); Calcium 8.2 mg/dL (8.4-10.2); Carbon Dioxide 25 mmol/L (22-30); Chloride 107 mmol/L (98-107); Estimated CRCL calculation 47 ml/min; Estimated Glomerular Filt Rate > 60; Glucose 124 mg/dL (65-105); Potassium 3.2 mmol/L (3.4-5.0); Sodium 135 mmol/L (137-145)
[2021-02-03 06:13] LABS: Glucose Point of Care 111 (65-105)
--- NOTE | 2021-02-03 08:03 | PM.PNCARD ---
Progress Note: A&P Assessment and Plan (1) Acute dehydration: Code(s): E86.0 - Dehydration Status: Acute Assessment and Plan: Received IVF. Low Potassium at 2.5 and Mag at 1.1. Replete potassium and Mag. (2) Urinary tract infection: Code(s): N39.0 - Urinary tract infection, site not specified Status: Acute Assessment and Plan: On IV antibiotics. Managed by hospitalist. (3) LBBB (left bundle branch block): Code(s): I44.7 - Left bundle-branch block, unspecified Status: Chronic (4) Dyslipidemia: Code(s): E78.5 - Hyperlipidemia, unspecified Status: Chronic Assessment and Plan: On statin. (5) Dyspnea on exertion: Code(s): R06.00 - Dyspnea, unspecified Status: Acute Assessment and Plan: Will cancel Lexiscan myoview stress test as this is not urgent and not the reason why she is in hospital. Will perform as outpatient once she is no longer confused and recovered from UTI and worked up for anemia. No further cardiac workup at this time. Will sign off. Please call with questions or change in status. (6) Edema: Code(s): R60.9 - Edema, unspecified Status: Chronic Assessment and Plan: Resolved. Probably due to venous insufficiency. Hold diuretics. (7) Hypertension: Code(s): I10 - Essential (primary) hypertension Status: Chronic Assessment and Plan: Stable. Hold her antihypertensives. (8) Anemia: Code(s): D64.9 - Anemia, unspecified Status: Acute Assessment and Plan: Probably chronic, and worsened by dilution. Managed by hospitalist. (9) Dizziness: Code(s): R42 - Dizziness and giddiness Status: Acute Assessment and Plan: No syncope per patient. Could also be due to alcoholism as she states she gets off balance not dizziness. Due to dehydration from diuretics and poor PO intake. (10) PAT (paroxysmal atrial tachycardia): Code(s): I47.1 - Supraventricular tachycardia Status: Acute Assessment and Plan: Had a few short runs of PAT on 01/31/21. Had 1 short run of PAT on 02/01/21. Used to be on Atenolol at home. On Toprol XL 25 mg daily to suppress PAC's and PAT. (11) Syncope: Code(s): R55 - Syncope and collapse Status: Acute Assessment and Plan: Probably vasovagal as she was on commode having bowel movement at the time it happened. Subjective Date/time seen: 02/03/21 08:03 She is confused, thinking she was at her daughter's house yesterday. Denies chest pain or sob. Exam Const: General: healthy appearing, comfortable and confusion Resp: Auscultation: clear to auscultation bilaterally, no crackles, no rales, no rhonchi and no wheezes Cardio: Jugular venous distension: no JVD Rate: regular rate Rhythm: regular rhythm Heart sounds: no murmurs Peripheral pulses: dorsalis pedis present GI: GI Palp: No abdominal tenderness and Yes Soft to palpation Neuro: General: oriented to person, oriented to place and oriented to time Extrem: Right lower extremity: no edema Left lower extremity: no edema Objective Data Vital Signs Vital Signs: Vital Signs - 24 hr 02/02/21 09:19 02/02/21 12:00 02/02/21 14:00 Temperature 97.8 F Pulse Rate 83 88 87 Pulse Rate [Monitor] 88 Respiratory Rate 14 15 Blood Pressure 114/47 L Pulse Oximetry 100 100 02/02/21 16:00 02/02/21 22:00 02/03/21 06:00 Temperature 98.2 F 98.0 F Pulse Rate 94 92 83 Pulse Rate [Monitor] 94 Respiratory Rate 16 18 Blood Pressure 127/54 L 116/52 L Pulse Oximetry 100 98 02/03/21 06:54 Temperature Pulse Rate Pulse Rate [Monitor] 94 Respiratory Rate Blood Pressure 116/52 L Pulse Oximetry Intake/Output Intake/Output: Intake & Output 01/31/21 02/01/21 02/02/21 02/03/21 23:59 23:59 23:59 23:59 Intake Total 1370 1530 1850 250 Output Total 1600 925 700 300 Balance -729 706 3901 -50 Meds/Results Medications:
--- NOTE | 2021-02-03 11:34 | PCNFU ---
Nutrition Follow-Up Complete: Inadequate oral intake related to nausea and vomiting as evidenced by patient reported weight loss of 50 lbs. in the past three months. Goal: Patient to meet estimated nutritional needs. Patient has limited progress towards goal. We will continue current goal. Pt current nutrition is Regular with Ensure Clear BID and Clinimix E 4.25/5 with 250 ml of 20% Lipid Emulsion. Last recorded weight is 71.8 kg, no new weight reported. Bowel Motility:+BM reported / Labs Reviewed:Hgb 7.7,Hct 23.8,Alb 2.3,Na 135,K 3.2 Meds Noted:PPN: Clinimix E 4.25/5 at 80 ml/hr with 250 ml of 20% Lipid Emulsion,Folic Acid, Protonix,Thiamine. Additional Notes: Nutrition follow up today. Patient continues to refuse to eat solid foods. Discussion with MD today to continue PPN at this time. Current PPN is providing patient with 1153 kcals and 82 gms protein, meeting 79% of patients caloric needs. PO intake is encouraged. Monitoring: patients labs, medications, weight, and oral intake every Tuesday and Tuesday.
[2021-02-03] MEDS: FOLIC ACID 1 MG TABLET PO (12:18)
[2021-02-03] MEDS: METOPROLOL SUCCINATE EXT REL 25 MG TABCR PO (12:19)
[2021-02-03] MEDS: THIAMINE HCL 100 MG TABLET PO (12:19)
--- NOTE | 2021-02-03 12:20 | PM.IMPN ---
Progress Note: A&P Assessment and Plan (1) Syncope: Code(s): R55 - Syncope and collapse Status: Acute Assessment and Plan: Her daughter reported a syncopal episode at home 1 week ago. She had recent echocardiogram performed 11/07/20 which demonstrated EF 55% and grade I diastolic dysfunction, segmental hypokinesis, moderate tricuspid regurgitation. She was orthostatic on orthostatic BP reading. Suspect this was related to dehydration given poor PO intake and diuretics. Carotid doppler with <50% stenosis of bilateral ICA. Telemetry reviewed showing NSR. Patient had a subsequent syncopal episode 01/31/21. Appears to be vasovagal in origin as it occurred when having a bowel movement. Likely exacerbated by dehydration given poor PO intake. She was rehydrated with IV fluid bolus and maintenance fluids. Telemetry reviewed with no abnormalities. Continue to monitor orthostatics. FILIBERTO hose have been ordered but she refused. Cardiology following and input appreciated. (2) Neurocognitive disorder: Code(s): R41.9 - Unspecified symptoms and signs involving cognitive functions and awareness Status: Acute Assessment and Plan: Multifactorial in etiology. Suspect acute delirium related to alcohol withdrawal and metabolic encephalopathy due to UTI superimposed on advanced dementia. She has experienced visual hallucinations. She has been combative and agitated. Head CT showed no acute findings. TSH, B12, folate within normal limits. Hepatitis panel, RPR, HIV negative. Agitation and restlessness have improved. Case discussed with psychiatrist Dr. Branch on 01/29/21. His input is greatly appreciated. Scheduled Zyprexa 2.5 mg p.o. q.h.s. with IM available if PO is refused Ativan 0.5 mg p.o. t.i.d. as needed for agitation. Transition to IM if not tolerating p.o. intake. Per Dr. Branch, IV Ativan should be avoided. Zyprexa 5 mg p.o. b.i.d. as needed for agitation. Proceed with IM if necessary Neurology has been consulted to ensure no additional organic cause for confusion. Input appreciated. (3) Anorexia: Code(s): R63.0 - Anorexia Status: Acute Assessment and Plan: She was refusing to eat or drink. Initial concern was that this was related to esophageal dysmotility, however there were no specific findings on EGD to explain anorexia. Her oral intake is still poor. Continue PPN. Advance to regular diet and allow her to pick foods she likes to encourage PO intake. Assistance needs to be provided with meals. Discussed case with dietitian who is following. (4) Nausea and vomiting: Code(s): R11.2 - Nausea with vomiting, unspecified Status: Acute Assessment and Plan: Ongoing 2-3 weeks prior to presentation with very poor oral intake. She has hx of alcohol abuse and quit drinking 2 weeks ago which raised suspicion for gastritis, esophagitis, or malignancy, although no findings noted on EGD. Abdominal US demonstrated cholelithiasis and diffuse hepatic steatosis. Abdominal duplex US showed no significant stenosis to suggest chronic mesenteric ischemia. UGI x-ray with barium swallow showed severe esophageal dysmotility. EGD performed on 01/30/2021 with no findings of stricture or other explanation for symptoms. Nausea and vomiting seems to have resolved. Gastroenterology following and input is appreciated Continue antiemetics as needed Continue IV Protonix b.i.d. (5) Weight loss: Code(s): R63.4 - Abnormal weight loss Status: Acute Assessment and Plan: Likely due to poor oral intake. She is malnourished due to alcohol abuse. CT abd/pelvis without evidence of malignancy and CXR unremarkable. No significant findings on EGD. Plan as above. Monitor oral intake. Continue PPN (6) Urinary tract infection: Code(s): N39.0 - Urinary tract infection, site not specified Status: Acute Assessment and Plan: Urinalysis abnormal
--- NOTE | 2021-02-03 13:29 | WPDNEUROPN ---
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 in the past patient is being treated by the psychiatrist has neurologically she has has a normal neurological examination he can obtain the EEG just rule out the possibility of seizure Review of Systems Review of Systems: All systems reviewed & are unremarkable except as noted in HPI and below Exam Const: General: no acute distress, alert, awake, anxious, confusion and ill appearing Nutritional Appearance: well nourished and overweight Orientation/consciousness: confusion Limitations: behavioral limitations and physical limitations HENMT: Head: normocephalic Ears: hearing grossly normal bilaterally General nose exam: Normal external nose present and No nasal discharge present Face and sinus: normal facial exam Mouth: Yes Normal oral and palatal mucosa present Eyes: General: appearance normal, both eyes and all related structures Alignment and Position: alignment normal Periorbital: periorbital findings normal Eyelids: eyelids normal Conjunctivae: conjunctivae normal Cornea: corneas normal EOM: EOMs intact bilaterally Neck: Neck: full ROM Resp: Effort & Inspection: able to speak in complete sentences Auscultation: clear to auscultation bilaterally Cardio: Rate: regular rate GI: GI Palp: Yes No hepatosplenomegaly present Auscultation: normal bowel sounds Skin: General skin exam: no rashes or lesions noted Neuro: General: moves all extremities and confusion Cranial nerves: Yes CN's II-XII intact bilaterally Cognition (Neuro): abnormal cognition Speech: Abnormal speech present Motor exam (neuro): Pronator motor function not present, No tremor noted and No asterixis Sensory Exam: Sensory deficit (Neuro) Deep tendon reflexes (DTR's): Right triceps reflex intensity grade: 1+, Left triceps reflex intensity grade: 1+, Rt Biceps (C5, C6): 1+, Left biceps reflex intensity grade: 1+, Right brachioradialis reflex intensity grade: 1+, Left brachioradialis reflex intensity grade: 1+, Right patellar reflex intensity grade: 1+, Left patellar reflex intensity grade: 1+, Right ankle reflex intensity grade: 1+ and Left ankle reflex intensity grade: 1+ Plantar Reflex Responses: downgoing: bilateral Extrem: General: full ROM Psych: Speech and movement: Psychomotor agitation in speech present and Restless speech present Affect: Labile affect present, Anxious affect present and Indifferent affect present Attitude: Refuses to answer (attititude/behavior) Thought process: Illogical thought process present Thought content: Yes Derealization present Insight: Poor insight present (Psych) Judgement: Poor judgement present (Psych) Objective Data Vital Signs Vital Signs: Vital Signs - 24 hr 02/02/21 14:00 02/02/21 16:00 02/02/21 22:00 Temperature 36.6 C 36.8 C Pulse Rate 87 94 92 Pulse Rate [Monitor] 94 Respiratory Rate 15 16 Blood Pressure 114/47 L 127/54 L Pulse Oximetry 100 100 02/03/21 06:00 02/03/21 06:54 02/03/21 12:19 Temperature 36.7 C Pulse Rate 83 92 Pulse Rate [Monitor] 94 Respiratory Rate 18 Blood Pressure 116/52 L 116/52 L Pulse Oximetry 98 Intake/Output Intake/Output: Intake & Output 01/31/21 02/01/21 02/02/21 02/03/21 23:59 23:59 23:59 23:59 Intake Total 1370 1530 1850 250 Output Total 1600 925 700 300 Balance -510 748 6628 -50 Meds/Results Medications: Active Medications Generic Name Dose Route Start Last Admin Trade Name Freq PRN Reason Stop Dose Admin Acetaminophen 650 mg 01/25/21 13:36 Acetaminophen 325 Mg Tablet PO Q4H PRN Mild Pain (1-3) Al Hydrox/Mg Hydrox/Simethicone 30 ml 01/25/21 13:36 Ma
[2021-02-03] MEDS: AMINO ACIDS 4.25%/D5W/LYTES/CA 2,000 ML 80 ML IV CONT (14:05)
[2021-02-03] MEDS: FAT EMULSIONS IV 20% 250 ML 20.8 ML IVPB (14:09)
[2021-02-03 14:19] LABS: Glucose Point of Care 116 (65-105)
[2021-02-03] MEDS: PANTOPRAZOLE SODIUM IV 40 MG VIAL IV PUSH (21:09)
[2021-02-03 23:53] LABS: Glucose Point of Care 117 (65-105)
[2021-02-04 04:55] VITALS: BP 135/60; PULSE 97
[2021-02-04 05:37] VITALS: BP 135/60; PULSE 101; RESP 18; TEMP 36.6; O2SAT 100
[2021-02-04 05:50] LABS: Hematocrit 21.9 % (37.0-47.0); Hemoglobin 7.1 g/dL (12.0-15.0); Mean Corpuscular HGB Conc 32.4 g/dl (32-36); Mean Corpuscular Hemoglobin 33.2 pg (26-34); Mean Corpuscular Volume 102.3 fl (80-100); Mean Platelet Volume 9.2 fl (7.4-10.4); Platelet Count Result 189 k/mm3 (150-375); Red Blood Count 2.14 M/mm3 (4.2-5.4); Red Cell Distribution Width 13.6 % (11.5-14.5); White Blood Count 7.6 K/mm3 (4.5-10.0)
[2021-02-04 06:07] LABS: Anion Gap 3 mmol/L (8-16); Blood Urea Nitrogen 23 mg/dL (7-17); Calcium 8.3 mg/dL (8.4-10.2); Carbon Dioxide 25 mmol/L (22-30); Chloride 106 mmol/L (98-107); Estimated CRCL calculation 52 ml/min; Estimated Glomerular Filt Rate > 60; Glucose 106 mg/dL (65-105); Magnesium 1.9 mg/dL (1.6-2.3); Phosphorus 4.1 mg/dL (2.5-4.5); Sodium 134 mmol/L (137-145)
[2021-02-04 06:11] LABS: Glucose Point of Care 108 (65-105)
[2021-02-04 08:19] VITALS: PULSE 68
[2021-02-04] MEDS: METOPROLOL SUCCINATE EXT REL 25 MG TABCR PO (08:19)
[2021-02-04] MEDS: THIAMINE HCL 100 MG TABLET PO (08:19)
[2021-02-04] MEDS: FOLIC ACID 1 MG TABLET PO (08:19)
[2021-02-04 08:20] VITALS: RESP 18; O2SAT 100
[2021-02-04] MEDS: PANTOPRAZOLE SODIUM IV 40 MG VIAL IV PUSH ×2 (08:20→20:50)
[2021-02-04 13:20] LABS: Glucose Point of Care 135 (65-105)
[2021-02-04 13:33] LABS: Hemoglobin 7.9 g/dL (12.0-15.0)
[2021-02-04] MEDS: AMINO ACIDS 4.25%/D5W/LYTES/CA 2,000 ML 80 ML IV CONT (13:54)
[2021-02-04] MEDS: FAT EMULSIONS IV 20% 250 ML 20.8 ML IVPB (13:55)
[2021-02-04 14:00] VITALS: BP 107/59; PULSE 99; RESP 18; TEMP 36.4; O2SAT 97
--- NOTE | 2021-02-04 16:08 | PM.IMPN ---
Progress Note: A&P Assessment and Plan (1) Syncope: Code(s): R55 - Syncope and collapse Status: Acute Assessment and Plan: Her daughter reported a syncopal episode at home 1 week ago. She had recent echocardiogram performed 11/07/20 which demonstrated EF 55% and grade I diastolic dysfunction, segmental hypokinesis, moderate tricuspid regurgitation. She was orthostatic on orthostatic BP reading. Suspect this was related to dehydration given poor PO intake and diuretics. Carotid doppler with <50% stenosis of bilateral ICA. Telemetry reviewed showing NSR. Patient had a subsequent syncopal episode 01/31/21. Appears to be vasovagal in origin as it occurred when having a bowel movement. Likely exacerbated by dehydration given poor PO intake. She was rehydrated with IV fluid bolus and maintenance fluids. Telemetry reviewed with no abnormalities. Continue to monitor orthostatics. FILIBERTO hose have been ordered but she refused. Cardiology following and input appreciated. (2) Neurocognitive disorder: Code(s): R41.9 - Unspecified symptoms and signs involving cognitive functions and awareness Status: Acute Assessment and Plan: Multifactorial in etiology. Suspect acute delirium related to alcohol withdrawal and metabolic encephalopathy due to UTI superimposed on advanced dementia. Her daughter notes that she has noticed significant and progressive decline in her memory and cognition since 2018. She has experienced visual hallucinations. She has been combative and agitated. Head CT showed no acute findings. TSH, B12, folate within normal limits. Hepatitis panel, RPR, HIV negative. Agitation and restlessness have improved. Case discussed with psychiatrist Dr. Branch on 01/29/21. His input is greatly appreciated. She may benefit from geropsychiatric evaluation. Scheduled Zyprexa 2.5 mg p.o. q.h.s. with IM available if PO is refused Ativan 0.5 mg p.o. t.i.d. as needed for agitation. Transition to IM if not tolerating p.o. intake. Per Dr. Branch, IV Ativan should be avoided. Zyprexa 5 mg p.o. b.i.d. as needed for agitation. Proceed with IM if necessary Neurology has been consulted to ensure no additional organic cause for confusion. Input appreciated. EEG was recommended and has been ordered and pending. Goals of care were discussed with her daughters today (Torri at the bedside and Samaria over the phone) given refusal to eat. They are going to take time to consider options. I also discussed that i do not think she can care for herself at home. (3) Anorexia: Code(s): R63.0 - Anorexia Status: Acute Assessment and Plan: She was refusing to eat or drink. Initial concern was that this was related to esophageal dysmotility, however there were no specific findings on EGD to explain anorexia. Her oral intake is still poor. Continue PPN. Advance to regular diet and allow her to pick foods she likes to encourage PO intake. Assistance needs to be provided with meals. Discussed case with dietitian who is following. Long discussion with her daughter, Torri at the bedside, and her daughter Samaria on the phone regarding goals of care should her oral intake not improve. We discussed comfort focused care versus feeding tube and they are going to talk together. They want to continue PPN for now. (4) Nausea and vomiting: Code(s): R11.2 - Nausea with vomiting, unspecified Status: Acute Assessment and Plan: Ongoing 2-3 weeks prior to presentation with very poor oral intake. She has hx of alcohol abuse and quit drinking 2 weeks ago which raised suspicion for gastritis, esophagitis, or malignancy, although no findings noted on EGD. Abdominal US demonstrated cholelithiasis and diffuse hepatic steatosis. Abdominal duplex US showed no significant stenosis to suggest chronic mesenteric ischemia. UGI x-ray with barium swallow showed severe esophageal dysmotility. EGD performed on 01/30/2021
[2021-02-04 17:29] LABS: Glucose Point of Care 112 (65-105)
[2021-02-04 21:34] VITALS: BP 125/68; PULSE 77; RESP 18; TEMP 36.5; O2SAT 100
[2021-02-05] VITALS (10 sets, daily range): BP systolic 105–157; BP diastolic 54–83; PULSE 93–105; RESP 12–16; TEMP 36.1–36.6; O2SAT 92–100
[2021-02-05 00:14] LABS: Glucose Point of Care 98 (65-105)
[2021-02-05 06:11] LABS: Glucose Point of Care 103 (65-105)
[2021-02-05 06:24] LABS: Basophils Percent Auto 0.3 % (0.2-1.2); Eosinophils Absolute Auto 0.1 K/mm3 (0-0.3); Eosinophils Percent Auto 1.7 % (0-4.4); Hematocrit 21.4 % (37.0-47.0); Hemoglobin 7.1 g/dL (12.0-15.0); Immature Granulocyte Absolute 0.08 K/mm3 (0.00-0.031); Immature Granulocyte Percent A 1.1 % (0-0.5); Lymphocytes Absolute Auto 0.72 K/mm3 (0.9-3.2); Lymphocytes Percent Auto 9.5 % (18.3-44.2); Mean Corpuscular HGB Conc 33.2 g/dl (32-36); Mean Corpuscular Volume 99.5 fl (80-100); Mean Platelet Volume 8.7 fl (7.4-10.4); Monocytes Absolute Auto 0.6 K/mm3 (0.1-0.6); Monocytes Percent Auto 7.5 % (2.6-8.5); Neutrophils Absolute Auto 6.1 K/mm3 (1.3-6.7); Neutrophils Percent Auto 79.9 % (45.5-73.1); Platelet Count Result 198 k/mm3 (150-375); Red Blood Count 2.15 M/mm3 (4.2-5.4); Red Cell Distribution Width 13.6 % (11.5-14.5); White Blood Count 7.6 K/mm3 (4.5-10.0)
[2021-02-05 06:44] LABS: Alanine Aminotransferase 11 U/L (4-35); Albumin Level 2.4 g/dL (3.5-5.1); Alkaline Phosphatase 94 U/L (38-126); Anion Gap 5 mmol/L (8-16); Aspartate Amino Transferase 29 U/L (14-36); Bilirubin,Total 0.3 mg/dL (0.2-1.3); Blood Urea Nitrogen 22 mg/dL (7-17); Calcium 8.5 mg/dL (8.4-10.2); Carbon Dioxide 24 mmol/L (22-30); Chloride 103 mmol/L (98-107); Estimated CRCL calculation 59 ml/min; Estimated Glomerular Filt Rate > 60; Glucose 115 mg/dL (65-105); Magnesium 1.7 mg/dL (1.6-2.3); Phosphorus 4.6 mg/dL (2.5-4.5); Sodium 132 mmol/L (137-145)
[2021-02-05 08:00] LABS: Ammonia < 9 umol/L (9-30)
--- NOTE | 2021-02-05 08:26 | PCOTNOTE ---
Attempted to see Patient at this time. Patient unavailable to be seen due to having an EEG at this time. Will check back at a later time.
[2021-02-05] MEDS: PANTOPRAZOLE SODIUM IV 40 MG VIAL IV PUSH ×2 (09:07→20:56)
[2021-02-05] MEDS: THIAMINE HCL 200 MG/2 ML VIAL 100 MG IV PUSH (09:07)
--- NOTE | 2021-02-05 09:12 | WPDNEUROLOGY ---
Neurology EEG Report General Information Date of Study: 02/05/21 TEST eeg DIAGNOSIS Rule out seizures CONDITION OF RECORDING awake drowsy and sleep EEG NUMBER [id number] CLINICAL HISTORY patient reportedly confused and was unable to give any history. Throughout the tracing because of the mattedup hair,impedence was high and created significant artifacts on the tracing EEG DESCRIPTION whole record consists of low to medium voltage 5 to 7 hertz per second theta admixed with intermittent 3 to 4 hertz per second delta without any paroxysmal activity. EEG was compromised because of the high impedance due to the matted hair non paroxysmal ,nonfocal, nonlateralizing. IMPRESSION Abnormal record due to the presence of bihemispheric theta and delta activity. these abnormalities are consistent with the diagnosis of organic or metabolic encephalopathy there is no evidence of any paroxysmal discharge. clinical correlation recommended
--- NOTE | 2021-02-05 09:47 | PCDIET ---
A calorie count was ordered. Spoke with nurse about starting the calorie count. Patient has been refusing to eat for several days now. Patient is currently on Clinimix E 4.25/5 at 80 ml/hour providing 1153 calories and 82 grams of protein providing patient with 79% of her caloric needs. Will continue to follow daily.
--- NOTE | 2021-02-05 09:55 | PCSTNOTE ---
A Bedside Swallow Evaluation was attempted this morning while breakfast tray was in the room. Therapist offered small bites of oatmeal that had been sweetened and milk added in order to increase the interest and patient made no attempt to open her mouth to accept the food. Therapist also offered small sips of water and coffee per spoon and ice water per straw and patient appeared to close lips tighter to avoid the presentations. Testing was terminated. This is a non-charge visit. Therapist will attempt again later in the day.
--- NOTE | 2021-02-05 09:57 | PM.IMPN ---
Progress Note: A&P Assessment and Plan (1) Syncope: Code(s): R55 - Syncope and collapse Status: Acute Assessment and Plan: Her daughter reported a syncopal episode at home 1 week ago. She had recent echocardiogram performed 11/07/20 which demonstrated EF 55% and grade I diastolic dysfunction, segmental hypokinesis, moderate tricuspid regurgitation. She was orthostatic on orthostatic BP reading. Suspect this was related to dehydration given poor PO intake and diuretics. Carotid doppler with <50% stenosis of bilateral ICA. Telemetry reviewed showing NSR. Patient had a subsequent syncopal episode 01/31/21. Appears to be vasovagal in origin as it occurred when having a bowel movement. Likely exacerbated by dehydration given poor PO intake. She was rehydrated with IV fluid bolus and maintenance fluids. Telemetry reviewed with no abnormalities. Continue to monitor orthostatics. FILIBERTO hose have been ordered but she refused. Cardiology following and input appreciated. There was no syncopal episodes reported overnight. (2) Neurocognitive disorder: Code(s): R41.9 - Unspecified symptoms and signs involving cognitive functions and awareness Status: Acute Assessment and Plan: Multifactorial in etiology. Suspect acute delirium related to alcohol withdrawal and metabolic encephalopathy due to UTI superimposed on advanced dementia. Her daughter notes that she has noticed significant and progressive decline in her memory and cognition since 2018. She has experienced visual hallucinations. She has been combative and agitated. Head CT showed no acute findings. TSH, B12, folate within normal limits. Hepatitis panel, RPR, HIV negative. Agitation and restlessness have improved. Case discussed with psychiatrist Dr. Branch on 01/29/21. His input is greatly appreciated. She may benefit from geropsychiatric evaluation. Scheduled Zyprexa 2.5 mg p.o. q.h.s. with IM available if PO is refused Ativan 0.5 mg p.o. t.i.d. as needed for agitation. Transition to IM if not tolerating p.o. intake. Per Dr. Branch, IV Ativan should be avoided. Zyprexa 5 mg p.o. b.i.d. as needed for agitation. Proceed with IM if necessary Neurology has been consulted to ensure no additional organic cause for confusion. Input appreciated. EEG was recommended and has been ordered and pending. Goals of care were discussed with her daughters yesterday (Torri at the bedside and Samaria over the phone) given refusal to eat. They are going to take time to consider options. I also discussed that i do not think she can care for herself at home. (3) Anorexia: Code(s): R63.0 - Anorexia Status: Acute Assessment and Plan: She was refusing to eat or drink. Initial concern was that this was related to esophageal dysmotility, however there were no specific findings on EGD to explain anorexia. Her oral intake is still poor. Continue PPN. Advance to regular diet and allow her to pick foods she likes to encourage PO intake. Assistance needs to be provided with meals. Discussed case with dietitian who is following. Long discussion with her daughter yesterday. Torri at the bedside, and her daughter Samaria on the phone regarding goals of care should her oral intake not improve. We discussed comfort focused care versus feeding tube and they are going to talk together. They want to continue PPN for now. (4) Nausea and vomiting: Code(s): R11.2 - Nausea with vomiting, unspecified Status: Acute Assessment and Plan: Ongoing 2-3 weeks prior to presentation with very poor oral intake. She has hx of alcohol abuse and quit drinking 2 weeks ago which raised suspicion for gastritis, esophagitis, or malignancy, although no findings noted on EGD. Abdominal US demonstrated cholelithiasis and diffuse hepatic steatosis. Abdominal duplex US showed no significant stenosis to suggest chronic mesenteric ischemia. UGI x-ray with barium sw
--- NOTE | 2021-02-05 11:21 | WPDNEURCNPN ---
Consult date: 02/05/21 HPI: Darcy Sanchez is a 76 year old female ADMISSION FUNCTION: Eating [Set Up Only] Oral Care [] Toileting Hygiene [] Shower/Bathing [] Upper Body Dressing [] Lower Body Dressing [] Donning/[place] Footwear [] Rolling Left and Right [] Sit to Lying [] Lying to Sitting [] Sit to Stand [] Bed to Chair Transfers [] Toilet Transfers [] Car Transfers [] Walking 10' [] Walking 50' with Two Turns [] Walking 150' [] Curb or Step [] 4 Steps [] 12 Steps [] Picking Up Object [] [Wheelchair Mobility 50'] [] [Wheelchair Mobility 150'] [] GOALS: Eating [INDEPENDENT] Oral Care [INDEPENDENT] Toileting Hygiene [INDEPENDENT] Shower/Bathing [INDEPENDENT] Upper Body Dressing [INDEPENDENT] Lower Body Dressing [INDEPENDENT] Donning/[place] Footwear [INDEPENDENT] Rolling Left and Right [INDEPENDENT] Sit to Lying [INDEPENDENT] Lying to Sitting [INDEPENDENT] Sit to Stand [INDEPENDENT] Bed to Chair Transfers [INDEPENDENT] Toilet Transfers [INDEPENDENT] Car Transfers [INDEPENDENT] Walking 10' [INDEPENDENT] Walking 50' with Two Turns [INDEPENDENT] Walking 150' [INDEPENDENT] Curb or Step [INDEPENDENT] 4 Steps [INDEPENDENT] 12 Steps [INDEPENDENT] Picking Up Object [INDEPENDENT] [Wheelchair Mobility 50'] [INDEPENDENT] [Wheelchair Mobility 150'] [INDEPENDENT] DISCHARGE PERFORMANCE: Eating [INDEPENDENT] Oral Care [INDEPENDENT] Toileting Hygiene [INDEPENDENT] Shower/Bathing [INDEPENDENT] Upper Body Dressing [INDEPENDENT] Lower Body Dressing [INDEPENDENT] Donning/[place] Footwear [INDEPENDENT] Rolling Left and Right [INDEPENDENT] Sit to Lying [INDEPENDENT] Lying to Sitting [INDEPENDENT] Sit to Stand [INDEPENDENT] Bed to Chair Transfers [INDEPENDENT] Toilet Transfers [INDEPENDENT] Car Transfers [INDEPENDENT] Walking 10' [INDEPENDENT] Walking 50' with Two Turns [INDEPENDENT] Walking 150' [INDEPENDENT] Curb or Step [INDEPENDENT] 4 Steps [INDEPENDENT] 12 Steps [INDEPENDENT] Picking Up Object [INDEPENDENT] [Wheelchair Mobility 50'] [INDEPENDENT] [Wheelchair Mobility 150'] [INDEPENDENT] The patient had [no falls]. [facility] Past Medical History Medical History (Updated 02/02/21 @ 14:24 by Emery Richardson MD) Contact dermatitis Dehydration Dyslipidemia Esophageal dysmotility Gastric ulcer Hypertension Macrocytic anemia Weight loss Surgical History Surgical History (Updated 01/25/21 @ 22:16 by Ann Aguilar NP) H/O abdominal surgery Most likely a salpingo-oophorectomy and laparotomy. Excision of adhesions Family History Family History Father Family history of malignant neoplasm, Onset Age: 60 Mother Cerebrovascular accident Social History Social History (Updated 01/25/21 @ 22:21 by Ann Aguilar NP) Social History: the patient is . The patient states that she used to drink vodka every day but quit drinking about 2 weeks ago. She would not specify how much vodka she drink every day. She said she did now. She has 3 children in her oldest daughter paxton hernandez is a durable power ip attorney for healthcare. The patient is a full code. She denies any marijuana or illicit drugs. She said she has never smoked cigarettes. Patient is retired from the [employer]. Smoking status: Never smoker Alcohol intake: former Drinks per week: 21 Substance use: never Substance use type: does not use Gender identity (if verbalized by the patient): Female Spiritual care concerns: No Meds Home Medications and Allergies Home Medications Medication Instructions Recorded Confirmed Type potassium chloride 10 mEq 10 meq PO DAILY #90 tablet 11/05/20 01/25/21 Rx tablet,extended release furosemide 40 mg tablet 20 mg PO QAM #90 tablet 01/02/21 01/25/21 Rx Allergies Allergy/AdvReac Type Severity Reaction Status Date / Time No Known Drug Allergies Allergy Mild Unknown Verified 01/30/21
[2021-02-05 12:03] LABS: Glucose Point of Care 95 (65-105)
[2021-02-05] MEDS: SODIUM CHLORIDE 0.9% IV 250 ML 30 ML IV CONT (13:02)
--- NOTE | 2021-02-05 13:52 | PCSTNOTE ---
Therapist spoke with nurse, Keely, in the afternoon and she reported that patient has continued to refuse both oral feedings and medications. Therapist will discuss discontinuing the order with physician after attempting again tomorrow, 02/06/21.
--- NOTE | 2021-02-05 14:42 | PCPTNOTE ---
Ashely Underwood PTA completed an inpatient rehab wheelchair evaluation on Darcy Sanchez on 02/05/2021. The patient is unable to safely and independently ambulate household distances due to their current impairments. Their diagnosis is syncope/urinary tract infection/dehydration and their impairments include decreased strength, decreased endurance, decreased balance, lower extremity weakness. Ms. Sanchez's weight bearing status is weight-bearing as tolerated on the bilateral lower legs. The patient demonstrates significant functional mobility limitations that impair their ability to participate in mobility-related activities of daily living (MRADLs), including toileting, feeding, dressing, grooming, and bathing in the customary locations in the home. These limitations cannot be sufficiently resolved by the use of an appropriately fitted cane or walker. It is recommended that the patient utilize a wheelchair for functional mobility within the home in order to facilitate optimal safety, independence and participation in all MRADL's and adequately access their home environment on a regular basis. The patient's home provides adequate access between rooms, maneuvering space, and surfaces to accommodate the recommended wheelchair. The use of a wheelchair for functional mobility is strongly recommended and the patient is receptive to using the wheelchair. The use of this wheelchair will significantly improve the patient's ability to participate in MRADLS and the patient will use it on a regular basis in the home. This will facilitate optimal safety, independence, and participation. The patient has demonstrated sufficient physical and mental capabilities needed to safely propel a manual wheelchair that is provided in the home during a typical day. Recommended Wheelchair Frame: standard Recommended Wheelchair Size: 20 x 20 Recommended Wheelchair Cushion:standard Wheelchair Leg Recommendations: bilateral swing away -Anti-tippers are recommended due to patient demonstrating increased risk for falls. They would benefit from anti-tippers with added safety and stabilization. -Adjustable arm height is recommended because the patient requires an arm height that is different than that which is available using non-adjustable arms. The patient spends at least 2 hours per day in the wheelchair. Ashely Underwood PTA ____02/05/21 Evaluating Therapist Date I agree with and certify that the above recommendation is medically necessary. Referring Physician Date
--- NOTE | 2021-02-05 14:46 | PCPTNOTE ---
Darcy Sanchez was evaluated for a semi-electric hospital bed on 02/05/2021 by this physical therapist. Ms. Sanchez currently has aspiration precautions requiring head of bed to remain at 30 degrees in which a hospital bed is recommended. Patient is currently dependent for bed mobility requiring an alternating pressure relief mattress to facilitate optimal off-loading to prevent skin breakdown. Patient is non-ambulatory and is bed bound. Patient would highly benefit from a semi-electric hospital bed given her precautions, impaired mobility and safety needs. Asehly Underwood, THEATRE MANAGER
--- NOTE | 2021-02-05 15:42 | PCOTNOTE ---
Attempted to see patient this pm. Pt adamantly refused. Encouraged patient to sit edge of bed and stand for orthostatics, however patient continued to decline activity. Upon boosting patient up in bed, patient soiled through bed linens. Pt refused clean up. Pt denied assisting and resisted bed mobility. Pt required total A x2 for bed mobility and hygiene. 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 Pt not seen for therapy for this reason.
--- NOTE | 2021-02-05 15:43 | PCPTNOTE ---
The PT treatment was unable to be completed today due to patient refusal. Will continue per Plan of Care frequency and duration.
--- NOTE | 2021-02-05 15:47 | WPDGIPROGNO ---
Progress Note: A&P Assessment and Plan (1) Anorexia: Code(s): R63.0 - Anorexia Status: Acute Assessment and Plan: still poor appetite, was getting parenteral nutrition family would like to proceed with peg tube placement, I can do it tomorrow npo afte midnight (2) Gastric ulcer: Code(s): K25.9 - Gastric ulcer, unspecified as acute or chronic, without hemorrhage or perforation Status: Acute Assessment and Plan: bx c/w gastritis, no h pylori, no dysplasia ppi (3) Nausea and vomiting: Code(s): R11.2 - Nausea with vomiting, unspecified Status: Acute Assessment and Plan: no vomiting but poor appetite (4) Neurocognitive disorder: Code(s): R41.9 - Unspecified symptoms and signs involving cognitive functions and awareness Status: Acute Assessment and Plan: neurology on board, also h/o alcohol use in the past (5) Confusion: Code(s): R41.0 - Disorientation, unspecified Status: Acute (6) Alcohol abuse: Code(s): F10.10 - Alcohol abuse, uncomplicated Status: Acute (7) Macrocytic anemia: Code(s): D53.9 - Nutritional anemia, unspecified Status: Acute Subjective Date/time seen: 02/05/21 15:47 Interval history: RN says that patient is harldly eating, still confused. 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 Review of Systems Review of Systems: All systems reviewed & are unremarkable except as noted in HPI and below Exam Const: General: comfortable and no acute distress Other: confused Eyes: General: appearance normal, both eyes and all related structures Neck: Neck: no JVD Resp: Auscultation: clear to auscultation bilaterally Cardio: Rate: regular rate GI: GI Palp: Yes Soft to palpation, No Firmness to palpation present (GI) and No Guarding due to palpation present (GI) Auscultation: normal bowel sounds Skin: General skin exam: normal color Neuro: Speech: normal speech Other: why don't you go to sleep , still confused and sometimes gets agitated Extrem: General: normal to inspection Psych: Affect: Anxious affect present Objective Data Vital Signs Vital Signs: Vital Signs - 24 hr 02/04/21 21:34 02/05/21 05:32 02/05/21 12:54 Temperature 97.7 F 97.5 F L 97 F L Pulse Rate 77 93 97 Respiratory Rate 18 16 14 Blood Pressure 125/68 105/67 123/60 Pulse Oximetry 100 100 100 02/05/21 13:10 02/05/21 14:10 02/05/21 15:00 Temperature 97.1 F L 97.2 F L 97 F L Pulse Rate 96 103 H 100 Respiratory Rate 14 14 14 Blood Pressure 116/68 126/54 L 156/74 H Pulse Oximetry 100 100 100 Intake/Output Intake/Output: Intake & Output 02/02/21 02/03/21 02/04/21 02/05/21 23:59 23:59 23:59 23:59 Intake Total 1850 2490 2420 2600 Output Total 700 1100 1725 550 Balance 1150 1745 033 5117 Meds/Results Medications: Active Medications Generic Name Dose Route Start Last Admin Trade Name Freq PRN Reason Stop Dose Admin Al Hydrox/Mg Hydrox/Simethicone 30 ml 01/25/21 13:36 Mag Hydrox/Al Hydrox/Simeth 30 Ml Udc PO Q6H PRN Indigestion Folic Acid 1 mg 01/28/21 09:00 02/05/21 09:14 Folic Acid 1 Mg Tablet PO Not Given DAILY MILAGROS Dextrose 1,000 mls @ 50 mls/hr 02/02/21 13:26 Dextrose 10% IV CONT .Q20H PRN if PN is interrupted Amino Acids/Electrolytes/Dextrose 2,000 mls @ 80 mls/hr 02/02/21 14:00 02/05/21 13:03 Clinimix E 4.25%/5% Solution IV CONT Infused .Q24H MILAGROS Infusion Protocol Fat Emulsion Intravenous 250 mls @ 20.833 mls/hr 02/02/21 14:00 02/05/21 03:00 Lipids 20% IVPB Infused Q24H MILAGROS Infusion Sodium Chloride 250 mls @ 30 mls/hr 02/05/21 10:35 02/05/21 13:02 Normal Saline Iv IV CONT 02/05/21 18:54 30 mls/hr .Q8H20M STA Administration Lorazepam 0.5 mg 01/29/21 11:57 Lorazepam (*Crx) 0.5 Mg Tablet PO Q8H PRN Agitation Metoprolol Succinate 25 mg 02/01/21
[2021-02-05] MEDS: AMINO ACIDS 4.25%/D5W/LYTES/CA 2,000 ML 80 ML IV CONT (18:21)
[2021-02-05] MEDS: FAT EMULSIONS IV 20% 250 ML 20.8 ML IVPB (18:22)
[2021-02-05 18:59] LABS: Glucose Point of Care 76 (65-105)
[2021-02-06] VITALS (11 sets, daily range): BP systolic 74–134; BP diastolic 39–69; PULSE 83–112; RESP 16–33; TEMP 36.3–37.1; O2SAT 93–100
[2021-02-06 01:56] LABS: Glucose Point of Care 91 (65-105)
[2021-02-06] MEDS: OLANZapine 10 MG INJ VIAL 5 MG IM (04:05)
[2021-02-06] MEDS: WATER, STERILE FOR INJECTION 10 ML VIAL XX (04:05)
[2021-02-06 06:50] LABS: Glucose Point of Care 88 (65-105)
--- NOTE | 2021-02-06 09:40 | PC.NURSE ---
To GI Lab via stretcher. Bedside report given to [facility].
--- NOTE | 2021-02-06 09:46 | PCSTNOTE ---
This patient was referred for a Bedside Swallow Evaluation yesterday due to refusing to eat; some people refuse to eat because they are aware they have a swallowing issue. This patient did refuse any breakfast food and drink from tray that therapist offered. Nursing reported patient has been refusing meals and medicine. Therapist wanted to attempt again this morning however nurse reported patient is now NPO for g-tube insertion. Patient is being discharged due to not being appropriate to evaluate at this time. Physician may re-order Bedside Swallow Evaluation post g-tube insertion if physician feels it is appropriate.
--- NOTE | 2021-02-06 09:52 | WPDANESEPPF ---
Anes - Initial Pre Proc Eval Procedure: Operation Date: 01/27/21 14:45 Proposed Procedures p Esophagogastroduodenoscopy - Emery Richardson MD Operation Date: 01/28/21 11:15 Proposed Procedures p Esophagogastroduodenoscopy - Emery Richardson MD Operation Date: 01/30/21 12:45 Proposed Procedures p Esophagogastroduodenoscopy - Emery Richardson MD Operation Date: 02/06/21 10:30 Proposed Procedures p Esophagogastroduodenoscopy - Jc Crenshaw MD s Percutaneous Endoscopic Gastrostomy Placement - Jc Crenshaw MD Date/Time: 02/06/21 09:52 Surgeon: Jerome Connell MD Pre Op Diagnosis: syncope/urinary tract infection/dehydration Patient Data Age: 76 Gender: F Height: 5 ft 4 in Weight: 74.7 kg Last Vital Signs Temp 36.6 C 02/06/21 06:00 Pulse 100 02/06/21 06:00 Resp 20 02/06/21 08:44 BP 112/69 02/06/21 06:00 Pulse Ox 97 02/06/21 08:44 Allergies Allergy/AdvReac Type Severity Reaction Status Date / Time No Known Drug Allergies Allergy Mild Unknown Verified 02/06/21 09:19 Home Medications Medication Instructions Recorded Confirmed Type potassium chloride 10 mEq 10 meq PO DAILY #90 tablet 11/05/20 01/25/21 Rx tablet,extended release furosemide 40 mg tablet 20 mg PO QAM #90 tablet 01/02/21 01/25/21 Rx Laboratory Tests 02/05/21 02/05/21 02/05/21 10:58 11:58 18:52 POC Capillary Glucose 95 mg/dl mg/dl 76 mg/dl mg/dl (65-105) (65-105) Blood Type A Positive Antibody Screen Negative Crossmatch See Detail 02/06/21 02/06/21 01:52 06:47 POC Capillary Glucose 91 mg/dl mg/dl 88 mg/dl mg/dl (65-105) (65-105) Blood Type Antibody Screen Crossmatch Patient hx anesthesia problems: none Family hx anesthesia problems: none PMFSH Past Medical History Medical History Contact dermatitis Dehydration Dyslipidemia Encephalopathy Esophageal dysmotility Gastric ulcer Hypertension Macrocytic anemia Weight loss Surgical History Surgical History H/O abdominal surgery Most likely a salpingo-oophorectomy and laparotomy. Excision of adhesions Family History Family History Father Family history of malignant neoplasm, Onset Age: 60 Mother Cerebrovascular accident Social History Social History Social History: the patient is . The patient states that she used to drink vodka every day but quit drinking about 2 weeks ago. She would not specify how much vodka she drink every day. She said she did now. She has 3 children in her oldest daughter paxton hernandez is a durable power collections attorney for healthcare. The patient is a full code. She denies any marijuana or illicit drugs. She said she has never smoked cigarettes. Patient is retired from the [employer]. Smoking status: Never smoker Alcohol intake: former Drinks per week: 21 Substance use: never Substance use type: does not use Gender identity (if verbalized by the patient): Female Spiritual care concerns: No Anes - Eval Final PreProcedure Day of Procedure 02/06/21 09:52 Patient weight: overweight Heart: regular rate and rhythm Lungs: decreased breath sounds Neurological: other (alert does not follow commands) Last oral intake: >/= 8 hours ASA classification: IV Anesthetic plan: proceed Anesthesia type and monitoring: general GIVS and standard monitoring Informed Consent: The patient's anesthetic plan and its attendant risks and benefits were discussed with the patient/family/POA. Questions were solicited and answers provided to the satisfaction of the patient/family/POA.
[2021-02-06] MEDS: LACTATED RINGERS 1,000 ML 150 ML IV CONT (10:00)
--- NOTE | 2021-02-06 10:19 | PM.IMPN ---
Progress Note: A&P Assessment and Plan (1) Syncope: Code(s): R55 - Syncope and collapse Status: Acute Assessment and Plan: Her daughter reported a syncopal episode at home 1 week ago. She had recent echocardiogram performed 11/07/20 which demonstrated EF 55% and grade I diastolic dysfunction, segmental hypokinesis, moderate tricuspid regurgitation. She was orthostatic on orthostatic BP reading. Suspect this was related to dehydration given poor PO intake and diuretics. Carotid doppler with <50% stenosis of bilateral ICA. Telemetry reviewed showing NSR. Patient had a subsequent syncopal episode 01/31/21. Appears to be vasovagal in origin as it occurred when having a bowel movement. Likely exacerbated by dehydration given poor PO intake. She was rehydrated with IV fluid bolus and maintenance fluids. Telemetry reviewed with no abnormalities. Continue to monitor orthostatics. FILIBERTO hose have been ordered but she refused. Cardiology following and input appreciated. There was no syncopal episodes reported overnight. Will continue to monitor. (2) Neurocognitive disorder: Code(s): R41.9 - Unspecified symptoms and signs involving cognitive functions and awareness Status: Acute Assessment and Plan: Multifactorial in etiology. Suspect acute delirium related to alcohol withdrawal and metabolic encephalopathy due to UTI superimposed on advanced dementia. Her daughter notes that she has noticed significant and progressive decline in her memory and cognition since 2018. She has experienced visual hallucinations. She has been combative and agitated. Head CT showed no acute findings. TSH, B12, folate within normal limits. Hepatitis panel, RPR, HIV negative. Agitation and restlessness have improved. Case discussed with psychiatrist Dr. Branch on 01/29/21. His input is greatly appreciated. She may benefit from geropsychiatric evaluation. Scheduled Zyprexa 2.5 mg p.o. q.h.s. with IM available if PO is refused Ativan 0.5 mg p.o. t.i.d. as needed for agitation. Transition to IM if not tolerating p.o. intake. Per Dr. Branch, IV Ativan should be avoided. Zyprexa 5 mg p.o. b.i.d. as needed for agitation. Proceed with IM if necessary Neurology has been consulted to ensure no additional organic cause for confusion. Input appreciated. EEG was recommended and has been ordered and pending. Goals of care were discussed with her daughters yesterday (Torri at the bedside and Samaria over the phone) given refusal to eat. They are going to take time to consider options. I also discussed that i do not think she can care for herself at home. Start physical therapy. (3) Anorexia: Code(s): R63.0 - Anorexia Status: Acute Assessment and Plan: She was refusing to eat or drink. Initial concern was that this was related to esophageal dysmotility, however there were no specific findings on EGD to explain anorexia. Her oral intake is still poor. Continue PPN. Advance to regular diet and allow her to pick foods she likes to encourage PO intake. Assistance needs to be provided with meals. Discussed case with dietitian who is following. Long discussion with her daughter yesterday. Torri at the bedside, and her daughter Samaria on the phone regarding goals of care should her oral intake not improve. We discussed comfort focused care versus feeding tube and they are going to talk together. They want to continue PPN for now. Family agreed for G-tube placement will schedule G-tube (4) Nausea and vomiting: Code(s): R11.2 - Nausea with vomiting, unspecified Status: Acute Assessment and Plan: Ongoing 2-3 weeks prior to presentation with very poor oral intake. She has hx of alcohol abuse and quit drinking 2 weeks ago which raised suspicion for gastritis, esophagitis, or malignancy, although no findings noted on EGD. Abdominal US demonstrated cholelithiasis and diffuse hepatic steatosis. Tati
[2021-02-06] MEDS: ceFAZolin SODIUM 1 GM VIAL IV PUSH (10:34)
--- NOTE | 2021-02-06 11:09 | SUR.PHASEII ---
Patient's second blood pressure in recovery was 74/39. Dr. Yusuf notified of BP. No new orders given at this time. Will continue to monitor. -Kamilah Osuna RN
--- NOTE | 2021-02-06 11:10 | SUR.PHASEII ---
Per Dr. Bettencourt, abdominal binder ordered for patient and placed properly over PEG tube insertion site. -Kamilah Osuna RN
--- NOTE | 2021-02-06 11:40 | PC.NURSE ---
Returned from GI Lab via stretcher. Family at bedside.
[2021-02-06 11:50] LABS: Glucose Point of Care 95 (65-105)
--- NOTE | 2021-02-06 12:35 | PCNFU ---
Nutrition Follow-Up Complete: Inadequate oral intake related to nausea and vomiting as evidenced by patient reported weight loss of 50 lbs. in the past three months. goal: Patient to meet estimated nutritional needs. progressing towards goal. We will continue current goal. Pt current nutrition is Jevity 1.2 at 20 ml/hr advance by 10 ml q 4 hours to goal rate of 60 ml/hr Last recorded weight is 74.7 kg,up from 71.8 kg on admit. Bowel Motility:+BM reported 02/06 Labs Reviewed: no new labs to report. Meds Noted:Clinimix E 4.25/5 with 250 ml of 20% Lipid Emulsion Additional Notes: Spoke with nursing today PPN will be discontinued today once bag has finish. PEG placed today, starting Jevity 1.2 today. Goal rate of 60 ml/hr will provide patient with 1584 kcals and 73 gms protein. Agree with diet orders. Monitor patients labs, medications, weight, and oral intake every Tuesday and Tuesday.
--- NOTE | 2021-02-06 13:34 | PCOTNOTE ---
Attempted to see patient for OT, patient unwilling to participate in any interventions despite repeated encouragement. Patient not seen for OT this date. Will continue plan of care tomorrow, 02/07/2021.
[2021-02-06 18:00] LABS: Glucose Point of Care 91 (65-105)
[2021-02-06] MEDS: PANTOPRAZOLE SODIUM IV 40 MG VIAL IV PUSH (20:38)
[2021-02-07] LABS: Glucose Point of Care 118 (65-105)
[2021-02-07] MEDS: OLANZapine 10 MG INJ VIAL 5 MG IM (04:15)
[2021-02-07 05:03] VITALS: BP 106/68; PULSE 104; RESP 18; TEMP 36.3; O2SAT 100
[2021-02-07 06:17] LABS: Glucose Point of Care 96 (65-105)
[2021-02-07 07:18] LABS: Hematocrit 29.1 % (37.0-47.0); Hemoglobin 9.5 g/dL (12.0-15.0); Mean Corpuscular HGB Conc 32.6 g/dl (32-36); Mean Corpuscular Hemoglobin 30.6 pg (26-34); Mean Corpuscular Volume 93.9 fl (80-100); Mean Platelet Volume 8.7 fl (7.4-10.4); Platelet Count Result 203 k/mm3 (150-375); Red Cell Distribution Width 17.5 % (11.5-14.5); White Blood Count 8.1 K/mm3 (4.5-10.0)
--- NOTE | 2021-02-07 07:26 | PCOTNOTE ---
Patient adamantly refuses participating with occupational therapy despite education on benefits of participating with therapy, discharging from occupational therapy at this time.
[2021-02-07 07:32] LABS: Alanine Aminotransferase 14 U/L (4-35); Albumin Level 2.5 g/dL (3.5-5.1); Alkaline Phosphatase 116 U/L (38-126); Anion Gap 2 mmol/L (8-16); Aspartate Amino Transferase 39 U/L (14-36); Bilirubin,Total 0.3 mg/dL (0.2-1.3); Blood Urea Nitrogen 21 mg/dL (7-17); Calcium 8.5 mg/dL (8.4-10.2); Carbon Dioxide 28 mmol/L (22-30); Chloride 105 mmol/L (98-107); Estimated CRCL calculation 48 ml/min; Estimated Glomerular Filt Rate > 60; Glucose 104 mg/dL (65-105); Potassium 3.8 mmol/L (3.4-5.0); Sodium 135 mmol/L (137-145)
--- NOTE | 2021-02-07 08:19 | P.PNIM_ITS ---
Progress Note: A&P Assessment and Plan (1) Syncope: Code(s): R55 - Syncope and collapse Status: Acute Assessment and Plan: Her daughter reported a syncopal episode at home 1 week ago. She had recent echocardiogram performed 11/07/20 which demonstrated EF 55% and grade I diastolic dysfunction, segmental hypokinesis, moderate tricuspid regurgitation. She was orthostatic on orthostatic BP reading. Suspect this was related to dehydration given poor PO intake and diuretics. Carotid doppler with <50% stenosis of bilateral ICA. Telemetry reviewed showing NSR. Patient had a subsequent syncopal episode 01/31/21. Appears to be vasovagal in origin as it occurred when having a bowel movement. Likely exacerbated by dehydration given poor PO intake. She was rehydrated with IV fluid bolus and maintenance fluids. Telemetry reviewed with no abnormalities. * Continue to monitor orthostatics. * FILIBERTO hose have been ordered but she refused. * Cardiology following and input appreciated. There was no syncopal episodes reported overnight. Will continue to monitor. (2) Neurocognitive disorder: Code(s): R41.9 - Unspecified symptoms and signs involving cognitive functions and awareness Status: Acute Assessment and Plan: Multifactorial in etiology. Suspect acute delirium related to alcohol withdrawal and metabolic encephalopathy due to UTI superimposed on advanced dementia. Her daughter notes that she has noticed significant and progressive decline in her memory and cognition since 2018. She has experienced visual hallucinations. She has been combative and agitated. Head CT showed no acute findings. TSH, B12, folate within normal limits. Hepatitis panel, RPR, HIV negative. Agitation and restlessness have improved. * Case discussed with psychiatrist Dr. Branch on 01/29/21. His input is greatly appreciated. She may benefit from geropsychiatric evaluation. * Scheduled Zyprexa 2.5 mg p.o. q.h.s. with IM available if PO is refused * Ativan 0.5 mg p.o. t.i.d. as needed for agitation. Transition to IM if not tolerating p.o. intake. Per Dr. Branch, IV Ativan should be avoided. * Zyprexa 5 mg p.o. b.i.d. as needed for agitation. Proceed with IM if necessary * Neurology has been consulted to ensure no additional organic cause for confusion. Input appreciated. EEG was recommended and has been ordered and pending. * Goals of care were discussed with her daughters yesterday (Torri at the bedside and Samaria over the phone) given refusal to eat. They are going to take time to consider options. I also discussed that i do not think she can care for herself at home. Start physical therapy. (3) Anorexia: Code(s): R63.0 - Anorexia Status: Acute Assessment and Plan: She was refusing to eat or drink. Initial concern was that this was related to esophageal dysmotility, however there were no specific findings on EGD to explain anorexia. Her oral intake is still poor. * Continue PPN. * Advance to regular diet and allow her to pick foods she likes to encourage PO intake. * Assistance needs to be provided with meals. * Discussed case with dietitian who is following. * Long discussion with her daughter yesterday. Torri at the bedside, and her daughter Samaria on the phone regarding goals of care should her oral intake not improve. We discussed comfort focused care versus feeding tube and they are going to talk together. They want to continue PPN for now. * * Family agreed for G-tube placement will schedule G-tube (4) Nausea and vomiting: Code(s): R11.2 - Nausea with vomiting, unspecified
[2021-02-07 08:30] LABS: Uric Acid 3.2 mg/dL (2.5-7.5)
[2021-02-07] MEDS: FOLIC ACID 1 MG TABLET FEED TUBE (09:25)
[2021-02-07] MEDS: MULTIVIT W/ IRON, MINERALS 15 ML LIQUID (*BKC) FEED TUBE (09:25)
[2021-02-07] MEDS: METOPROLOL TARTRATE 12.5 MG TABLET FEED TUBE ×2 (09:26→20:15)
[2021-02-07] MEDS: PANTOPRAZOLE SODIUM IV 40 MG VIAL IV PUSH ×2 (09:26→20:15)
[2021-02-07] MEDS: THIAMINE HCL 200 MG/2 ML VIAL 100 MG IV PUSH (09:27)
--- NOTE | 2021-02-07 11:34 | WPDGIPROGNO ---
Progress Note: A&P Assessment and Plan (1) Anorexia: Code(s): R63.0 - Anorexia Status: Acute Assessment and Plan: g-tube placed yesterday, continue with tube feeding as tolerated will follow from af[place], call if questions (2) Gastric ulcer: Code(s): K25.9 - Gastric ulcer, unspecified as acute or chronic, without hemorrhage or perforation Status: Acute Assessment and Plan: continue ppi bid, path report pending (3) Neurocognitive disorder: Code(s): R41.9 - Unspecified symptoms and signs involving cognitive functions and awareness Status: Acute Assessment and Plan: still confused, probably multifactorial by primary team (4) Confusion: Code(s): R41.0 - Disorientation, unspecified Status: Acute (5) Macrocytic anemia: Code(s): D53.9 - Nutritional anemia, unspecified Status: Acute Subjective Date/time seen: 02/07/21 11:34 Interval history: g-tube placed yesterday and RN reports that tolerated feeding Review of Systems Review of Systems: All systems reviewed & are unremarkable except as noted in HPI and below Exam Const: General: comfortable and no acute distress Other: she is talking and interacting but gets confused Eyes: General: appearance normal, both eyes and all related structures Neck: Neck: no JVD Resp: Auscultation: clear to auscultation bilaterally Cardio: Rate: regular rate GI: GI Palp: Yes Soft to palpation, No Firmness to palpation present (GI) and No Guarding due to palpation present (GI) Auscultation: normal bowel sounds Other: g-tube in place, site looks ok, abdominal binder in position Skin: General skin exam: normal color Neuro: Speech: normal speech Other: awake and alert but confused Extrem: General: normal to inspection Psych: Affect: Anxious affect present Objective Data Vital Signs Vital Signs: Vital Signs - 24 hr 02/06/21 11:40 02/06/21 12:40 02/06/21 14:35 Temperature 97.9 F 98.4 F 98.7 F Pulse Rate 96 97 106 H Respiratory Rate 16 16 20 Blood Pressure 108/48 L 123/59 L 117/58 L Pulse Oximetry 98 100 100 02/06/21 20:00 02/07/21 05:03 Temperature 97.4 F L 97.3 F L Pulse Rate 112 H 104 H Respiratory Rate 16 18 Blood Pressure 134/67 106/68 Pulse Oximetry 99 100 Intake/Output Intake/Output: Intake & Output 02/04/21 02/05/21 02/06/21 02/07/21 23:59 23:59 23:59 23:59 Intake Total 2420 2950 2719 603 Output Total 1725 1050 2200 450 Balance 695 1900 519 153 Meds/Results Medications: Active Medications Generic Name Dose Route Start Last Admin Trade Name Freq PRN Reason Stop Dose Admin Al Hydrox/Mg Hydrox/Simethicone 30 ml 02/06/21 19:35 Mag Hydrox/Al Hydrox/Simeth 30 Ml Udc FEED TUBE Q6H PRN Indigestion Folic Acid 1 mg 02/07/21 09:00 02/07/21 09:25 Folic Acid 1 Mg Tablet FEED TUBE 1 mg DAILY MILAGROS Administration Dextrose 1,000 mls @ 50 mls/hr 02/02/21 13:26 Dextrose 10% IV CONT .Q20H PRN if PN is interrupted Lorazepam 0.5 mg 02/06/21 19:35 Lorazepam (*Crx) 0.5 Mg Tablet FEED TUBE Q8H PRN Agitation Metoprolol Tartrate 12.5 mg 02/07/21 09:00 02/07/21 09:26 Metoprolol Tartrate 12.5 Mg Tablet FEED TUBE 12.5 mg Q12HR MILAGROS Administration Multivitamins/Minerals 15 ml 02/07/21 09:00 02/07/21 09:25 Multivit W/ Iron, Minerals 15 Ml Liquid (*Bkc) FEED TUBE 15 ml DAILY MILAGROS Administration Olanzapine 5 mg 01/29/21 12:18 02/07/21 04:15 Olanzapine 10 Mg Inj Vial IM 5 mg BID PRN Administration Agitation Olanzapine 5 mg 02/06/21 19:35 02/07/21 09:25 Olanzapine Tab 5 Mg Tablet FEED TUBE 5 mg BID PRN Administration Agitation Olanzapine 2.5 mg 02/06/21 21:00 02/06/21 20:38 Olanzapine Tab 2.5 Mg Tablet FEED TUBE 2.5 mg HS MILAGROS Administration Ondansetron HCl 4 mg 01/25/21 13:36 Ondansetron Inj 4 Mg/2 Ml Vial IV PUSH Q6H PRN Nausea And Vomiting Panto
--- NOTE | 2021-02-07 11:43 | WPDANESPN ---
Anes - Prog Note Post-Op Date/Time: 02/07/21 11:43 Cardiovascular status: normal Respiratory status: normal Airway patency: baseline Mental status: baseline Post-Op hydration status: normal Vital Signs: Last Vital Signs Temp 36.3 C L 02/07/21 05:03 Pulse 104 H 02/07/21 05:03 Resp 18 02/07/21 05:03 BP 106/68 02/07/21 05:03 Pulse Ox 100 02/07/21 05:03 Pain Score (VAS): no complaints, but seems confused I/O: Intake & Output 02/06/21 02/07/21 02/07/21 23:59 07:59 15:59 Intake Total 1919 603 Output Total 850 450 Balance 1069 153 Laboratory Tests 02/07/21 06:50 02/07/21 06:50 02/06/21 02/06/21 02/06/21 11:47 17:57 23:53 WBC RBC Hgb Hct MCV MCH MCHC RDW Plt Count MPV Sodium Potassium Chloride Carbon Dioxide Anion Gap BUN Creatinine Estim Creat Clear Calc Estimated GFR Glucose POC Capillary Glucose 95 91 118 H Uric Acid Calcium Total Bilirubin AST ALT Alkaline Phosphatase Total Protein Albumin 02/07/21 02/07/21 02/07/21 06:14 06:50 06:50 WBC 8.1 RBC 3.10 L Hgb 9.5 L Hct 29.1 L MCV 93.9 D MCH 30.6 D MCHC 32.6 RDW 17.5 H Plt Count 203 MPV 8.7 Sodium 135 L Potassium 3.8 Chloride 105 Carbon Dioxide 28 Anion Gap 2 L BUN 21 H Creatinine 0.90 Estim Creat Clear Calc 48 Estimated GFR > 60 Glucose 104 POC Capillary Glucose 96 Uric Acid Calcium 8.5 Total Bilirubin 0.3 AST 39 H ALT 14 Alkaline Phosphatase 116 Total Protein 6.0 L Albumin 2.5 L 02/07/21 06:50 WBC RBC Hgb Hct MCV MCH MCHC RDW Plt Count MPV Sodium Potassium Chloride Carbon Dioxide Anion Gap BUN Creatinine Estim Creat Clear Calc Estimated GFR Glucose POC Capillary Glucose Uric Acid 3.2 Calcium Total Bilirubin AST ALT Alkaline Phosphatase Total Protein Albumin Microbiology 02/05/21 15:53 Urine Clean Catch Urine Culture - Final Post-procedural complaints: none Patient Feedback: Patient satisfied with anesthetic care.
[2021-02-07 13:17] LABS: Glucose Point of Care 107 (65-105)
[2021-02-07 14:00] VITALS: BP 129/65; PULSE 102; RESP 16; TEMP 36.6; O2SAT 100
[2021-02-07] MEDS: TOLNAFTATE 1% POWDER 45 GM BTL 1 APPLIC TOPICAL ×2 (16:58→20:16)
[2021-02-07 19:06] LABS: Glucose Point of Care 96 (65-105)
[2021-02-07 20:00] VITALS: BP 132/62; PULSE 110; RESP 18; TEMP 37.3; O2SAT 100
[2021-02-07 20:15] VITALS: PULSE 110
[2021-02-08 00:28] LABS: Glucose Point of Care 106 (65-105)
--- NOTE | 2021-02-08 03:37 | PC.NURSE ---
Daylight Savings Time For Daylight Savings Time Ending in the Fall - Clocks are moved back. For Daylight Savings Time Beginning in the Spring - Clocks are moved ahead. For [facility], the time of change occurs at 0200 hrs. Time is taken from the catering server. This entry on the patient's chart recognizes the change in time reflected during documentation. Example: 2 entries for vital signs may be charted for 0200 hrs.
[2021-02-08 06:00] VITALS: BP 118/71; PULSE 105; RESP 16; TEMP 36.4; O2SAT 96
[2021-02-08 06:10] LABS: Glucose Point of Care 98 (65-105)
[2021-02-08 09:00] VITALS: PULSE 105
[2021-02-08] MEDS: MULTIVIT W/ IRON, MINERALS 15 ML LIQUID (*BKC) FEED TUBE (09:00)
[2021-02-08] MEDS: SACCHAROMYCES BOULARDII 250 MG CAPSULE FEED TUBE (09:00)
[2021-02-08] MEDS: METOPROLOL TARTRATE 12.5 MG TABLET FEED TUBE ×2 (09:00→20:31)
[2021-02-08] MEDS: THIAMINE HCL 200 MG/2 ML VIAL 100 MG IV PUSH (09:00)
[2021-02-08] MEDS: FOLIC ACID 1 MG TABLET FEED TUBE (09:00)
[2021-02-08] MEDS: PANTOPRAZOLE SODIUM IV 40 MG VIAL IV PUSH ×2 (09:00→20:31)
[2021-02-08] MEDS: TOLNAFTATE 1% POWDER 45 GM BTL 1 APPLIC TOPICAL ×2 (09:01→20:32)
--- NOTE | 2021-02-08 10:56 | PCPTNOTE ---
Patient declined therapy this morning. When asked to do leg exercises patient responded I don't have any legs. She kept asking for Alfredito. Patient's conversation is still very much confused. Patient left in bed with RN aware she is not going to participate today.
[2021-02-08 12:11] LABS: Glucose Point of Care 82 (65-105)
[2021-02-08 14:00] VITALS: BP 104/66; PULSE 98; RESP 18; TEMP 36.5; O2SAT 100
[2021-02-08 17:46] LABS: Glucose Point of Care 107 (65-105)
[2021-02-08 20:31] VITALS: PULSE 103
[2021-02-08 20:40] VITALS: BP 118/63; PULSE 103; RESP 14; TEMP 37.1; O2SAT 100
[2021-02-09 00:43] LABS: Glucose Point of Care 107 (65-105)
[2021-02-09 04:53] LABS: Basophils Absolute Auto 0.1 K/mm3 (0.0-0.1); Basophils Percent Auto 0.6 % (0.2-1.2); Eosinophils Absolute Auto 0.2 K/mm3 (0-0.3); Eosinophils Percent Auto 2.8 % (0-4.4); Hematocrit 27.1 % (37.0-47.0); Hemoglobin 8.8 g/dL (12.0-15.0); Immature Granulocyte Absolute 0.05 K/mm3 (0.00-0.031); Immature Granulocyte Percent A 0.6 % (0-0.5); Lymphocytes Absolute Auto 1.35 K/mm3 (0.9-3.2); Lymphocytes Percent Auto 15.9 % (18.3-44.2); Mean Corpuscular HGB Conc 32.5 g/dl (32-36); Mean Corpuscular Hemoglobin 31.1 pg (26-34); Mean Corpuscular Volume 95.8 fl (80-100); Mean Platelet Volume 8.7 fl (7.4-10.4); Monocytes Absolute Auto 0.8 K/mm3 (0.1-0.6); Monocytes Percent Auto 9.1 % (2.6-8.5); Platelet Count Result 219 k/mm3 (150-375); Red Blood Count 2.83 M/mm3 (4.2-5.4); White Blood Count 8.5 K/mm3 (4.5-10.0)
[2021-02-09 05:13] VITALS: BP 114/56; PULSE 90; RESP 14; TEMP 37; O2SAT 97
[2021-02-09 05:59] LABS: Glucose Point of Care 113 (65-105)
[2021-02-09 09:31] LABS: Hemoglobin 9.1 g/dL (12.0-15.0); Mean Corpuscular HGB Conc 32.5 g/dl (32-36); Mean Corpuscular Hemoglobin 31.2 pg (26-34); Mean Corpuscular Volume 95.9 fl (80-100); Mean Platelet Volume 8.7 fl (7.4-10.4); Platelet Count Result 224 k/mm3 (150-375); Red Blood Count 2.92 M/mm3 (4.2-5.4); Red Cell Distribution Width 17.2 % (11.5-14.5); White Blood Count 8.9 K/mm3 (4.5-10.0)
[2021-02-09 09:53] LABS: Anion Gap 3 mmol/L (8-16); Blood Urea Nitrogen 17 mg/dL (7-17); Calcium 8.4 mg/dL (8.4-10.2); Carbon Dioxide 29 mmol/L (22-30); Chloride 104 mmol/L (98-107); Estimated CRCL calculation 54 ml/min; Estimated Glomerular Filt Rate > 60; Glucose 116 mg/dL (65-105); Potassium 4.6 mmol/L (3.4-5.0); Sodium 136 mmol/L (137-145)
[2021-02-09] MEDS: THIAMINE HCL 100 MG TABLET FEED TUBE (10:48)
[2021-02-09] MEDS: FAMOTIDINE 20 MG TABLET FEED TUBE ×2 (10:48→20:22)
[2021-02-09 10:49] VITALS: PULSE 90
[2021-02-09] MEDS: MULTIVIT W/ IRON, MINERALS 15 ML LIQUID (*BKC) FEED TUBE (10:49)
[2021-02-09] MEDS: METOPROLOL TARTRATE 12.5 MG TABLET FEED TUBE ×2 (10:49→20:23)
[2021-02-09] MEDS: FOLIC ACID 1 MG TABLET FEED TUBE (10:49)
[2021-02-09] MEDS: SACCHAROMYCES BOULARDII 250 MG CAPSULE FEED TUBE (10:49)
[2021-02-09] MEDS: TOLNAFTATE 1% POWDER 45 GM BTL 1 APPLIC TOPICAL ×2 (10:50→20:24)
--- NOTE | 2021-02-09 14:45 | PM.IMPN ---
Progress Note: A&P Assessment and Plan (1) Syncope: Code(s): R55 - Syncope and collapse Status: Acute Assessment and Plan: Her daughter reported a syncopal episode at home 1 week ago. She had recent echocardiogram performed 11/07/20 which demonstrated EF 55% and grade I diastolic dysfunction, segmental hypokinesis, moderate tricuspid regurgitation. She was orthostatic on orthostatic BP reading. Suspect this was related to dehydration given poor PO intake and diuretics. Carotid doppler with <50% stenosis of bilateral ICA. Telemetry reviewed showing NSR. Patient had a subsequent syncopal episode 01/31/21. Appears to be vasovagal in origin as it occurred when having a bowel movement. Likely exacerbated by dehydration given poor PO intake. She was rehydrated with IV fluid bolus and maintenance fluids. Telemetry reviewed with no abnormalities. Continue to monitor orthostatics. FILIBERTO hose have been ordered but she refused. Cardiology following and input appreciated. There was no syncopal episodes reported overnight. Will continue to monitor. 02/09/21 14:45 patient is 76-year-old female with history of psychiatry illness and dementia was brought to the emergency department Patient had c/o nausea vomiting and poor appetite she would put food in her mouth but chew or swallow, had lost clost to 50lbs, there is also concerned that patient has history of alcohol abuse, patient and her family to place PEG and was seen by GI and had EGD which showed gastritis and started patient on Protonix, had PEG placed on 02/03/21 and being fed with Gtube, and tolerating, patient was seen by Dr. Lynn and had EEG which was abnormal and consisting with organic or metabolic encephalopathy, patient is still quite confused, and is bed ridden and has difficulty with ambulation, working with PT, Patient grand daughter is present in the room, family has decided to place for rehab in the SNF, will continue to monitor and care team is working with the family. (2) Neurocognitive disorder: Code(s): R41.9 - Unspecified symptoms and signs involving cognitive functions and awareness Status: Acute Assessment and Plan: Multifactorial in etiology. Suspect acute delirium related to alcohol withdrawal and metabolic encephalopathy due to UTI superimposed on advanced dementia. Her daughter notes that she has noticed significant and progressive decline in her memory and cognition since 2018. She has experienced visual hallucinations. She has been combative and agitated. Head CT showed no acute findings. TSH, B12, folate within normal limits. Hepatitis panel, RPR, HIV negative. Agitation and restlessness have improved. Case discussed with psychiatrist Dr. Branch on 01/29/21. His input is greatly appreciated. She may benefit from geropsychiatric evaluation. Scheduled Zyprexa 2.5 mg p.o. q.h.s. with IM available if PO is refused Ativan 0.5 mg p.o. t.i.d. as needed for agitation. Transition to IM if not tolerating p.o. intake. Per Dr. Branch, IV Ativan should be avoided. Zyprexa 5 mg p.o. b.i.d. as needed for agitation. Proceed with IM if necessary Neurology has been consulted to ensure no additional organic cause for confusion. Input appreciated. EEG was recommended and has been ordered and pending. Goals of care were discussed with her daughters yesterday (Torri at the bedside and Samaria over the phone) given refusal to eat. They are going to take time to consider options. I also discussed that i do not think she can care for herself at home. Start physical therapy. (3) Anorexia: Code(s): R63.0 - Anorexia Status: Acute Assessment and Plan: She was refusing to eat or drink. Initial concern was that this was related to esophageal dysmotility, however there were no specific findings on EGD to explain anorexia. Her oral intake is still poor. Continue PPN. Advance to regular diet and allow her to pick foods she likes to encou
[2021-02-09 20:23] VITALS: PULSE 86
[2021-02-09 21:06] LABS: SARS-CoV-2 RNA PCR Negative
[2021-02-09 22:00] VITALS: BP 123/70; PULSE 106; RESP 20; TEMP 35.9; O2SAT 97
[2021-02-10 06:00] VITALS: BP 106/60; PULSE 98; RESP 16; TEMP 36.1; O2SAT 100
[2021-02-10 08:13] VITALS: PULSE 84
[2021-02-10] MEDS: THIAMINE HCL 100 MG TABLET FEED TUBE (08:13)
[2021-02-10] MEDS: TOLNAFTATE 1% POWDER 45 GM BTL 1 APPLIC TOPICAL ×2 (08:13→20:07)
[2021-02-10] MEDS: METOPROLOL TARTRATE 12.5 MG TABLET FEED TUBE ×2 (08:13→20:05)
[2021-02-10] MEDS: FOLIC ACID 1 MG TABLET FEED TUBE (08:13)
[2021-02-10] MEDS: MULTIVIT W/ IRON, MINERALS 15 ML LIQUID (*BKC) FEED TUBE (08:13)
[2021-02-10] MEDS: FAMOTIDINE 20 MG TABLET FEED TUBE ×2 (08:13→20:05)
[2021-02-10] MEDS: SACCHAROMYCES BOULARDII 250 MG CAPSULE FEED TUBE (08:13)
--- NOTE | 2021-02-10 10:44 | PCDIET ---
Nutrition Follow-Up Complete: Nutrition Diagnosis: Inadequate oral intake related to nausea and vomiting as evidenced by reported weight loss of 50 lbs. in the past three months. Nutrition Goal: Patient to meet estimated nutritional needs. Goal met. Jevity 1.2 infusing at 60mL/hr goal rate with 30mL water flush every 4 hours. No issues, per RN. Patient without c/o on visit, but unable to answer questions appropriately. Last recorded weight is 76.2 kg which is increased from last review. +I/O. Bowel Motility: Last documented BM on 02/06/21 x 3. Discussed with GUERRERO Riggs who reports no abdominal distention or firmness. Labs Reviewed: Hgb (9.1), Hgb (28.0), Glu (116), Na (136) Meds Noted: Pepcid, Folic Acid, Lopressor, MVI/minerals, Florastor, Vitamin B1 Additional Notes: No documented skin breakdown. Will continue to monitor with same goal. Nutrition Monitoring and Evaluation: Follow up every Tuesday/Tuesday.
[2021-02-10 14:00] VITALS: BP 121/52; PULSE 90; RESP 16; TEMP 37.3; O2SAT 100
--- NOTE | 2021-02-10 16:22 | PM.IMPN ---
Progress Note: A&P Assessment and Plan (1) Syncope: Code(s): R55 - Syncope and collapse Status: Acute Assessment and Plan: Her daughter reported a syncopal episode at home 1 week ago. She had recent echocardiogram performed 11/07/20 which demonstrated EF 55% and grade I diastolic dysfunction, segmental hypokinesis, moderate tricuspid regurgitation. She was orthostatic on orthostatic BP reading. Suspect this was related to dehydration given poor PO intake and diuretics. Carotid doppler with <50% stenosis of bilateral ICA. Telemetry reviewed showing NSR. Patient had a subsequent syncopal episode 01/31/21. Appears to be vasovagal in origin as it occurred when having a bowel movement. Likely exacerbated by dehydration given poor PO intake. She was rehydrated with IV fluid bolus and maintenance fluids. Telemetry reviewed with no abnormalities. Continue to monitor orthostatics. FILIBERTO hose have been ordered but she refused. Cardiology following and input appreciated. There was no syncopal episodes reported overnight. Will continue to monitor. 02/10/21 16:22 patient is 76-year-old female with history of psychiatry illness and dementia was brought to the emergency department Patient had c/o nausea vomiting and poor appetite she would put food in her mouth but chew or swallow, had lost clost to 50lbs, there is also concerned that patient has history of alcohol abuse, patient and her family to place PEG and was seen by GI and had EGD which showed gastritis and started patient on Protonix, had PEG placed on 02/03/21 and being fed with Gtube, and tolerating, patient was seen by Dr. Lynn and had EEG which was abnormal and consisting with organic or metabolic encephalopathy, patient is still quite confused, and is bed ridden and has difficulty with ambulation, working with PT, Patient grand daughter is present in the room, family has decided to place for rehab in the SNF, will continue to monitor and care team is working with the family. 02/10 there are no family member present today patient is quite somnolent, discussed with pet caregiver still waiting for to hear from the family the plan to find the SNF for the patient, continue to monitor and further recommendation to follow (2) Neurocognitive disorder: Code(s): R41.9 - Unspecified symptoms and signs involving cognitive functions and awareness Status: Acute Assessment and Plan: Multifactorial in etiology. Suspect acute delirium related to alcohol withdrawal and metabolic encephalopathy due to UTI superimposed on advanced dementia. Her daughter notes that she has noticed significant and progressive decline in her memory and cognition since 2018. She has experienced visual hallucinations. She has been combative and agitated. Head CT showed no acute findings. TSH, B12, folate within normal limits. Hepatitis panel, RPR, HIV negative. Agitation and restlessness have improved. Case discussed with psychiatrist Dr. Branch on 01/29/21. His input is greatly appreciated. She may benefit from geropsychiatric evaluation. Scheduled Zyprexa 2.5 mg p.o. q.h.s. with IM available if PO is refused Ativan 0.5 mg p.o. t.i.d. as needed for agitation. Transition to IM if not tolerating p.o. intake. Per Dr. Branch, IV Ativan should be avoided. Zyprexa 5 mg p.o. b.i.d. as needed for agitation. Proceed with IM if necessary Neurology has been consulted to ensure no additional organic cause for confusion. Input appreciated. EEG was recommended and has been ordered and pending. Goals of care were discussed with her daughters yesterday (Torri at the bedside and Samaria over the phone) given refusal to eat. They are going to take time to consider options. I also discussed that i do not think she can care for herself at home. Start physical therapy. (3) Anorexia: Code(s): R63.0 - Anorexia Status: Acute Assessment and Plan: She was refusing to eat or drink. Initial c
[2021-02-10 20:05] VITALS: PULSE 88
[2021-02-10] MEDS: LORazepam (*CRX) 0.5 MG TABLET FEED TUBE (22:48)
[2021-02-11 09:20] VITALS: PULSE 84
[2021-02-11] MEDS: MULTIVIT W/ IRON, MINERALS 15 ML LIQUID (*BKC) FEED TUBE (09:20)
[2021-02-11] MEDS: FOLIC ACID 1 MG TABLET FEED TUBE (09:20)
[2021-02-11] MEDS: METOPROLOL TARTRATE 12.5 MG TABLET FEED TUBE ×2 (09:20→21:41)
[2021-02-11] MEDS: SACCHAROMYCES BOULARDII 250 MG CAPSULE FEED TUBE (09:20)
[2021-02-11] MEDS: FAMOTIDINE 20 MG TABLET FEED TUBE ×2 (09:20→21:43)
[2021-02-11] MEDS: THIAMINE HCL 100 MG TABLET FEED TUBE (09:20)
[2021-02-11] MEDS: TOLNAFTATE 1% POWDER 45 GM BTL 1 APPLIC TOPICAL ×2 (09:21→21:43)
--- NOTE | 2021-02-11 10:57 | PCPTNOTE ---
Patient refused treatment this session. When asking patient if she was in any pain she said you . Patient declined therapy service at this time and appeared agitated.
[2021-02-11 14:00] VITALS: BP 110/62; PULSE 88; RESP 16; TEMP 36.5; O2SAT 98
--- NOTE | 2021-02-11 14:42 | PM.IMPN ---
Progress Note: A&P Assessment and Plan (1) Syncope: Code(s): R55 - Syncope and collapse Status: Acute Assessment and Plan: Her daughter reported a syncopal episode at home 1 week ago. She had recent echocardiogram performed 11/07/20 which demonstrated EF 55% and grade I diastolic dysfunction, segmental hypokinesis, moderate tricuspid regurgitation. She was orthostatic on orthostatic BP reading. Suspect this was related to dehydration given poor PO intake and diuretics. Carotid doppler with <50% stenosis of bilateral ICA. Telemetry reviewed showing NSR. Patient had a subsequent syncopal episode 01/31/21. Appears to be vasovagal in origin as it occurred when having a bowel movement. Likely exacerbated by dehydration given poor PO intake. She was rehydrated with IV fluid bolus and maintenance fluids. Telemetry reviewed with no abnormalities. Continue to monitor orthostatics. FILIBERTO hose have been ordered but she refused. Cardiology following and input appreciated. There was no syncopal episodes reported overnight. Will continue to monitor. 02/11/21 14:42 patient is 76-year-old female with history of psychiatry illness and dementia was brought to the emergency department Patient had c/o nausea vomiting and poor appetite she would put food in her mouth but chew or swallow, had lost clost to 50lbs, there is also concerned that patient has history of alcohol abuse, patient and her family to place PEG and was seen by GI and had EGD which showed gastritis and started patient on Protonix, had PEG placed on 02/03/21 and being fed with Gtube, and tolerating, patient was seen by Dr. Lynn and had EEG which was abnormal and consisting with organic or metabolic encephalopathy, patient is still quite confused, and is bed ridden and has difficulty with ambulation, working with PT, Patient grand daughter is present in the room, family has decided to place for rehab in the SNF, will continue to monitor and care team is working with the family. 02/10 there are no family member present today patient is quite somnolent, discussed with long term care administrator still waiting for to hear from the family the plan to find the SNF for the patient, continue to monitor and further recommendation to follow. 02/11 currently there are no family member present patient still is not communicative, spoke with the long term care administrator who eventually was able to contact family and they have agreed for SNF place, awaiting insurance authorization most likely tomorrow (2) Neurocognitive disorder: Code(s): R41.9 - Unspecified symptoms and signs involving cognitive functions and awareness Status: Acute Assessment and Plan: Multifactorial in etiology. Suspect acute delirium related to alcohol withdrawal and metabolic encephalopathy due to UTI superimposed on advanced dementia. Her daughter notes that she has noticed significant and progressive decline in her memory and cognition since 2018. She has experienced visual hallucinations. She has been combative and agitated. Head CT showed no acute findings. TSH, B12, folate within normal limits. Hepatitis panel, RPR, HIV negative. Agitation and restlessness have improved. Case discussed with psychiatrist Dr. Branch on 01/29/21. His input is greatly appreciated. She may benefit from geropsychiatric evaluation. Scheduled Zyprexa 2.5 mg p.o. q.h.s. with IM available if PO is refused Ativan 0.5 mg p.o. t.i.d. as needed for agitation. Transition to IM if not tolerating p.o. intake. Per Dr. Branch, IV Ativan should be avoided. Zyprexa 5 mg p.o. b.i.d. as needed for agitation. Proceed with IM if necessary Neurology has been consulted to ensure no additional organic cause for confusion. Input appreciated. EEG was recommended and has been ordered and pending. Goals of care were discussed with her daughters yesterday (Torri at the bedside and Samaria over the phone) given refusal to eat. They are going to take time to consider
[2021-02-11] MEDS: ACETAMINOPHEN ELIXIR 325 MG/10.15 ML UDC 650 MG FEED TUBE (16:28)
[2021-02-11 21:41] VITALS: PULSE 96
[2021-02-11 22:00] VITALS: BP 155/69; PULSE 94; RESP 16; TEMP 36.2; O2SAT 100
[2021-02-11] MEDS: LORazepam (*CRX) 0.5 MG TABLET FEED TUBE (22:16)
[2021-02-12 05:55] LABS: Basophils Absolute Auto 0.1 K/mm3 (0.0-0.1); Basophils Percent Auto 0.8 % (0.2-1.2); Eosinophils Absolute Auto 0.3 K/mm3 (0-0.3); Eosinophils Percent Auto 2.9 % (0-4.4); Hematocrit 30.4 % (37.0-47.0); Hemoglobin 9.5 g/dL (12.0-15.0); Immature Granulocyte Absolute 0.21 K/mm3 (0.00-0.031); Immature Granulocyte Percent A 2.4 % (0-0.5); Lymphocytes Absolute Auto 1.13 K/mm3 (0.9-3.2); Mean Corpuscular HGB Conc 31.3 g/dl (32-36); Mean Corpuscular Hemoglobin 30.4 pg (26-34); Mean Corpuscular Volume 97.1 fl (80-100); Mean Platelet Volume 8.9 fl (7.4-10.4); Monocytes Absolute Auto 0.8 K/mm3 (0.1-0.6); Monocytes Percent Auto 8.7 % (2.6-8.5); Neutrophils Absolute Auto 6.3 K/mm3 (1.3-6.7); Neutrophils Percent Auto 72.2 % (45.5-73.1); Platelet Count Result 344 k/mm3 (150-375); Red Blood Count 3.13 M/mm3 (4.2-5.4); Red Cell Distribution Width 17.4 % (11.5-14.5); White Blood Count 8.7 K/mm3 (4.5-10.0)
[2021-02-12 07:52] VITALS: PULSE 96
[2021-02-12] MEDS: METOPROLOL TARTRATE 12.5 MG TABLET FEED TUBE ×2 (07:52→20:52)
[2021-02-12] MEDS: MULTIVIT W/ IRON, MINERALS 15 ML LIQUID (*BKC) FEED TUBE (07:53)
[2021-02-12] MEDS: THIAMINE HCL 100 MG TABLET FEED TUBE (07:53)
[2021-02-12] MEDS: SACCHAROMYCES BOULARDII 250 MG CAPSULE FEED TUBE (07:53)
[2021-02-12] MEDS: FAMOTIDINE 20 MG TABLET FEED TUBE ×2 (07:53→20:52)
[2021-02-12] MEDS: FOLIC ACID 1 MG TABLET FEED TUBE (07:54)
[2021-02-12] MEDS: TOLNAFTATE 1% POWDER 45 GM BTL 1 APPLIC TOPICAL ×2 (07:54→20:54)
[2021-02-12] MEDS: MAGNESIUM HYDROXIDE SUSP 30 ML UDC FEED TUBE (08:56)
--- NOTE | 2021-02-12 11:01 | PC.NURSE ---
Discussions were held the previous day with the Manager Student Services Adelaida, the patients' family, and the facility the patient would be going to at discharge. Family was unhappy with the discussion and fired Adelaida from the patients' care. Today, 02/12, Torri, the patients' daughter, came out to the nurses station yelling about a COVID vaccine for her mother and demanded to speak to the supply chain development manager. Narendra MASTERS witnessed this outburst and came to get me to talk with the family member. I went into the patients' room where the daughter was and she was immediately defensive and angry about her mother not getting the COVID vaccine here at the hospital because she knew that we give them here and she had papers to prove it, along with her PCP told her the COVID vaccine was being given at the hospital. I tried explaining to the daughter that vaccine is not given at the hospital and the papers she had were for the vaccine clinic in [place] at the [facility]. The daughter, Torri, kept yelling over my explanation stating shouldn't you as a supply chain development manager know what is going on and her papers state that her mother can get the vaccine here . I felt like trying to further explain was only going to escalate the situation, so I told the daughter that I would make phone calls to clarify and would be back. I left the room and spoke with GELY Son, who also spoke with the patients' family the day before about vaccination to see what had all been discussed. They spoke about how the hospital does not administer vaccines to the patient, and that the facility the patient is going to has already had vaccines administered and could not guarantee a second vaccine would be delivered. I went back to the patients' room to speak with Torri again, she was more responsive this time as we spoke about the option of filling out the questions on the [facility] website to see if she qualifies for the vaccine, then if she does qualify they would have to find transportation from the facility to the [facility] to get the vaccine and then also transportation back to the facility. The daughter was still defensive as to why we cannot give her the vaccine in the hospital and then kept stating that she would have to get an ambulance from the hospital to the vaccine clinic in [place], and I corrected her statement about the transport from the facility not the hospital multiple times before our conversation switched to her mothers care, and how she felt that nobody was checking to make sure she was too hot or too cold. I apologized to her that this is the way she was feeling about her mothers care. The patient had multiple blankets on and appeared comfortable through both of our conversations. The patients' daughter, Torri then ended by stating that she would get nasty if that's how she need to be. I encouraged her to bring her concerns to our attention but there would be no need to get nasty . When I left the room the patient looked comfortable and all of the daughters concerns at the time were addressed.
[2021-02-12 14:00] VITALS: BP 110/45; PULSE 91; RESP 14; TEMP 36.4; O2SAT 100
--- NOTE | 2021-02-12 16:08 | PM.IMPN ---
Progress Note: A&P Assessment and Plan (1) Syncope: Code(s): R55 - Syncope and collapse Status: Acute Assessment and Plan: Her daughter reported a syncopal episode at home 1 week ago. She had recent echocardiogram performed 11/07/20 which demonstrated EF 55% and grade I diastolic dysfunction, segmental hypokinesis, moderate tricuspid regurgitation. She was orthostatic on orthostatic BP reading. Suspect this was related to dehydration given poor PO intake and diuretics. Carotid doppler with <50% stenosis of bilateral ICA. Telemetry reviewed showing NSR. Patient had a subsequent syncopal episode 01/31/21. Appears to be vasovagal in origin as it occurred when having a bowel movement. Likely exacerbated by dehydration given poor PO intake. She was rehydrated with IV fluid bolus and maintenance fluids. Telemetry reviewed with no abnormalities. Continue to monitor orthostatics. FILIBERTO hose have been ordered but she refused. Cardiology following and input appreciated. There was no syncopal episodes reported overnight. Will continue to monitor. 02/12/21 16:08 patient is 76-year-old female with history of psychiatry illness and dementia was brought to the emergency department Patient had c/o nausea vomiting and poor appetite she would put food in her mouth but chew or swallow, had lost clost to 50lbs, there is also concerned that patient has history of alcohol abuse, patient and her family to place PEG and was seen by GI and had EGD which showed gastritis and started patient on Protonix, had PEG placed on 02/03/21 and being fed with Gtube, and tolerating, patient was seen by Dr. Lynn and had EEG which was abnormal and consisting with organic or metabolic encephalopathy, patient is still quite confused, and is bed ridden and has difficulty with ambulation, working with PT, Patient grand daughter is present in the room, family has decided to place for rehab in the SNF, will continue to monitor and care team is working with the family. 02/10 there are no family member present today patient is quite somnolent, discussed with child daycare worker still waiting for to hear from the family the plan to find the SNF for the patient, continue to monitor and further recommendation to follow. 02/11 currently there are no family member present patient still is not communicative, spoke with the child daycare worker who eventually was able to contact family and they have agreed for SNF place, awaiting insurance authorization most likely tomorrow. 02/12 Discuss with child daycare worker, patient does not participate PT and therefore insurance will not approve rehab or SNF, patient family does not have financial resources and know how to take of the patient at home as patient is requiring total care feeding, toiletry and activity, patient needs 24hours care, again tomorrow try to work with patient to participate in PT and further recommendation to follow, patient is unable to provider any ROS she is talking to people who are not there, will continue to monitor. (2) Neurocognitive disorder: Code(s): R41.9 - Unspecified symptoms and signs involving cognitive functions and awareness Status: Acute Assessment and Plan: Multifactorial in etiology. Suspect acute delirium related to alcohol withdrawal and metabolic encephalopathy due to UTI superimposed on advanced dementia. Her daughter notes that she has noticed significant and progressive decline in her memory and cognition since 2018. She has experienced visual hallucinations. She has been combative and agitated. Head CT showed no acute findings. TSH, B12, folate within normal limits. Hepatitis panel, RPR, HIV negative. Agitation and restlessness have improved. Case discussed with psychiatrist Dr. Branch on 01/29/21. His input is greatly appreciated. She may benefit from geropsychiatric evaluation. Scheduled Zyprexa 2.5 mg p.o. q.h.s. with IM available if PO is refused Ativan 0.5 mg p.o. t.i.d.
[2021-02-12 19:55] VITALS: BP 104/61; PULSE 97; RESP 18; TEMP 36.5; O2SAT 98
[2021-02-12 20:52] VITALS: PULSE 72
[2021-02-13] VITALS (7 sets, daily range): BP systolic 106–136; BP diastolic 67–83; PULSE 80–118; RESP 16–18; TEMP 35.8–37; O2SAT 100
[2021-02-13] MEDS: METOPROLOL TARTRATE 12.5 MG TABLET FEED TUBE ×2 (09:24→19:54)
[2021-02-13] MEDS: SACCHAROMYCES BOULARDII 250 MG CAPSULE FEED TUBE (09:25)
[2021-02-13] MEDS: THIAMINE HCL 100 MG TABLET FEED TUBE (09:25)
[2021-02-13] MEDS: FAMOTIDINE 20 MG TABLET FEED TUBE ×2 (09:27→19:55)
[2021-02-13] MEDS: FOLIC ACID 1 MG TABLET FEED TUBE (09:27)
[2021-02-13] MEDS: MULTIVIT W/ IRON, MINERALS 15 ML LIQUID (*BKC) FEED TUBE (09:27)
[2021-02-13] MEDS: TOLNAFTATE 1% POWDER 45 GM BTL 1 APPLIC TOPICAL ×2 (09:28→19:55)
--- NOTE | 2021-02-13 13:53 | PCNFU ---
Nutrition Follow-Up Complete: Inadequate oral intake related to nausea and vomiting as evidenced by patient reported weight loss of 50 lbs. in the past three months. Goal: Patient to meet estimated nutritional needs. Patient is tolerating current tube feeding of Jevity 1.2 at 60 ml/hour over 22 hours per day with 30 ml water flushes q4 hours. Pt current nutrition is Jevity 1.2 at 60 ml/hour over 22 hours per day providing 1,584 calories, 1,065 ml of water, and 73 grams of protein. No issues reported. Last recorded weight is 73.4 kg. Stable weight upon admission. Bowel Motility: + BM 02/13 Labs Reviewed: Hgb 9.5, Hct 30.4 Meds Noted:Mylanta, Zofran, Protonix Additional Notes: Briefly spoke with patient. Patient is confused. Checked to confirm her tube feeding is going at 60 ml/hour with 30ml water flushes q4 hours. Monitor patients labs, medications, weight, and oral intake every Tuesday/Tuesday.
--- NOTE | 2021-02-13 14:08 | PCNSR ---
On 02/13/21, the student, Sonia Espino, provided care and completed [facility] documentation on this patient. I have reviewed the student's documentation and agree with the findings.
--- NOTE | 2021-02-13 15:13 | PC.NURSE ---
On 02/13/21, the student, [ Lashawn Phillips], provided care and completed [facility] documentation on this patient. I have reviewed the student's documentation and agree with the findings.
[2021-02-13] MEDS: LORazepam (*CRX) 0.5 MG TABLET FEED TUBE (19:58)
[2021-02-14 06:00] VITALS: BP 109/81; PULSE 103; RESP 18; TEMP 36.6; O2SAT 100
--- NOTE | 2021-02-14 07:58 | PM.IMPN ---
Progress Note: A&P Assessment and Plan (1) Syncope: Code(s): R55 - Syncope and collapse Status: Acute Assessment and Plan: Her daughter reported a syncopal episode at home 1 week ago. She had recent echocardiogram performed 11/07/20 which demonstrated EF 55% and grade I diastolic dysfunction, segmental hypokinesis, moderate tricuspid regurgitation. She was orthostatic on orthostatic BP reading. Suspect this was related to dehydration given poor PO intake and diuretics. Carotid doppler with <50% stenosis of bilateral ICA. Telemetry reviewed showing NSR. Patient had a subsequent syncopal episode 01/31/21. Appears to be vasovagal in origin as it occurred when having a bowel movement. Likely exacerbated by dehydration given poor PO intake. She was rehydrated with IV fluid bolus and maintenance fluids. Telemetry reviewed with no abnormalities. Continue to monitor orthostatics. FILIBERTO hose have been ordered but she refused. Cardiology following and input appreciated. 02/13/2021 patient is 76-year-old female with history of psychiatry illness and dementia was brought to the emergency department Patient had c/o nausea vomiting and poor appetite she would put food in her mouth but chew or swallow, had lost clost to 50lbs, there is also concerned that patient has history of alcohol abuse, patient and her family to place PEG and was seen by GI and had EGD which showed gastritis and started patient on Protonix, had PEG placed on 02/03/21 and being fed with Gtube, and tolerating, patient was seen by Dr. Lynn and had EEG which was abnormal and consisting with organic or metabolic encephalopathy, patient is still quite confused, and is bed ridden and has difficulty with ambulation, working with PT, Patient grand daughter is present in the room, family has decided to place for rehab in the SNF, will continue to monitor and care team is working with the family. 02/10 there are no family member present today patient is quite somnolent, discussed with career center advisor still waiting for to hear from the family the plan to find the SNF for the patient, continue to monitor and further recommendation to follow. 02/11 currently there are no family member present patient still is not communicative, spoke with the career center advisor who eventually was able to contact family and they have agreed for SNF place, awaiting insurance authorization most likely tomorrow. 02/12 Discuss with career center advisor, patient does not participate PT and therefore insurance will not approve rehab or SNF, patient family does not have financial resources and know how to take of the patient at home as patient is requiring total care feeding, toiletry and activity, patient needs 24hours care, again tomorrow try to work with patient to participate in PT and further recommendation to follow, patient is unable to provider any ROS she is talking to people who are not there, will continue to monitor. 02/13 today patient daughter is present in the room discussed with planning there are in search for placement for the patient. Awaiting occupational therapy evaluation and further recommendation to follow, her insurance company authorization is pending for the SNF. Will continue to monitor. (2) Neurocognitive disorder: Code(s): R41.9 - Unspecified symptoms and signs involving cognitive functions and awareness Status: Acute Assessment and Plan: Multifactorial in etiology. Suspect acute delirium related to alcohol withdrawal and metabolic encephalopathy due to UTI superimposed on advanced dementia. Her daughter notes that she has noticed significant and progressive decline in her memory and cognition since 2018. She has experienced visual hallucinations. She has been combative and agitated. Head CT showed no acute findings. TSH, B12, folate within normal limits. Hepatitis panel, RPR, HIV negative. Agitation and restlessness have improved. Case discussed with psych
[2021-02-14] MEDS: FOLIC ACID 1 MG TABLET FEED TUBE (09:47)
[2021-02-14] MEDS: THIAMINE HCL 100 MG TABLET FEED TUBE (09:47)
[2021-02-14 09:48] VITALS: PULSE 74
[2021-02-14] MEDS: SACCHAROMYCES BOULARDII 250 MG CAPSULE FEED TUBE (09:48)
[2021-02-14] MEDS: FAMOTIDINE 20 MG TABLET FEED TUBE ×2 (09:48→20:05)
[2021-02-14] MEDS: TOLNAFTATE 1% POWDER 45 GM BTL 1 APPLIC TOPICAL ×2 (09:48→20:05)
[2021-02-14] MEDS: MULTIVIT W/ IRON, MINERALS 15 ML LIQUID (*BKC) FEED TUBE (09:48)
[2021-02-14] MEDS: METOPROLOL TARTRATE 12.5 MG TABLET FEED TUBE ×2 (09:48→20:08)
--- NOTE | 2021-02-14 14:07 | PM.IMPN ---
Progress Note: A&P Assessment and Plan (1) Syncope: Code(s): R55 - Syncope and collapse Status: Acute Assessment and Plan: Her daughter reported a syncopal episode at home 1 week ago. She had recent echocardiogram performed 11/07/20 which demonstrated EF 55% and grade I diastolic dysfunction, segmental hypokinesis, moderate tricuspid regurgitation. She was orthostatic on orthostatic BP reading. Suspect this was related to dehydration given poor PO intake and diuretics. Carotid doppler with <50% stenosis of bilateral ICA. Telemetry reviewed showing NSR. Patient had a subsequent syncopal episode 01/31/21. Appears to be vasovagal in origin as it occurred when having a bowel movement. Likely exacerbated by dehydration given poor PO intake. She was rehydrated with IV fluid bolus and maintenance fluids. Telemetry reviewed with no abnormalities. Continue to monitor orthostatics. FILIBERTO hose have been ordered but she refused. Cardiology following and input appreciated. 02/14/21 14:02 patient is 76-year-old female with history of psychiatry illness and dementia was brought to the emergency department Patient had c/o nausea vomiting and poor appetite she would put food in her mouth but chew or swallow, had lost clost to 50lbs, there is also concerned that patient has history of alcohol abuse, patient and her family to place PEG and was seen by GI and had EGD which showed gastritis and started patient on Protonix, had PEG placed on 02/03/21 and being fed with Gtube, and tolerating, patient was seen by Dr. Lynn and had EEG which was abnormal and consisting with organic or metabolic encephalopathy, patient is still quite confused, and is bed ridden and has difficulty with ambulation, working with PT, Patient grand daughter is present in the room, family has decided to place for rehab in the SNF, will continue to monitor and care team is working with the family. 02/10 there are no family member present today patient is quite somnolent, discussed with [facility] still waiting for to hear from the family the plan to find the SNF for the patient, continue to monitor and further recommendation to follow. 02/11 currently there are no family member present patient still is not communicative, spoke with the [facility] who eventually was able to contact family and they have agreed for SNF place, awaiting insurance authorization most likely tomorrow. 02/12 Discuss with [facility], patient does not participate PT and therefore insurance will not approve rehab or SNF, patient family does not have financial resources and know how to take of the patient at home as patient is requiring total care feeding, toiletry and activity, patient needs 24hours care, again tomorrow try to work with patient to participate in PT and further recommendation to follow, patient is unable to provider any ROS she is talking to people who are not there, will continue to monitor. 02/13 today patient daughter is present in the room discussed with planning there are in search for placement for the patient. Awaiting occupational therapy evaluation and further recommendation to follow, her insurance company authorization is pending for the SNF. Will continue to monitor. 02/14 today patient clinically stable no family member is present, waiting to hear from family regarding further planning to discharge the patient, I understand patient's family would like to take the patient to [place]. (2) Neurocognitive disorder: Code(s): R41.9 - Unspecified symptoms and signs involving cognitive functions and awareness Status: Acute Assessment and Plan: Multifactorial in etiology. Suspect acute delirium related to alcohol withdrawal and metabolic encephalopathy due to UTI superimposed on advanced dementia. Her daughter notes that she has noticed significant and progressive decline in her memory and cognition since 2018. She has experienced visual
[2021-02-14 20:08] VITALS: PULSE 105
[2021-02-14 22:00] VITALS: BP 105/82; PULSE 99; RESP 18; TEMP 36.9; O2SAT 98
[2021-02-15] VITALS (8 sets, daily range): BP systolic 116–136; BP diastolic 63–83; PULSE 99–113; RESP 16–18; TEMP 36.2–37; O2SAT 98–100
[2021-02-15] MEDS: THIAMINE HCL 100 MG TABLET FEED TUBE (08:12)
[2021-02-15] MEDS: SACCHAROMYCES BOULARDII 250 MG CAPSULE FEED TUBE (08:12)
[2021-02-15] MEDS: FOLIC ACID 1 MG TABLET FEED TUBE (08:12)
[2021-02-15] MEDS: FAMOTIDINE 20 MG TABLET FEED TUBE ×2 (08:12→21:14)
[2021-02-15] MEDS: MULTIVIT W/ IRON, MINERALS 15 ML LIQUID (*BKC) FEED TUBE (08:12)
[2021-02-15] MEDS: METOPROLOL TARTRATE 12.5 MG TABLET FEED TUBE ×2 (08:12→21:14)
[2021-02-15] MEDS: TOLNAFTATE 1% POWDER 45 GM BTL 1 APPLIC TOPICAL ×2 (08:14→21:14)
--- NOTE | 2021-02-15 13:50 | PM.IMPN ---
Progress Note: A&P Assessment and Plan (1) Syncope: Code(s): R55 - Syncope and collapse Status: Acute Assessment and Plan: Her daughter reported a syncopal episode at home 1 week ago. She had recent echocardiogram performed 11/07/20 which demonstrated EF 55% and grade I diastolic dysfunction, segmental hypokinesis, moderate tricuspid regurgitation. She was orthostatic on orthostatic BP reading. Suspect this was related to dehydration given poor PO intake and diuretics. Carotid doppler with <50% stenosis of bilateral ICA. Telemetry reviewed showing NSR. Patient had a subsequent syncopal episode 01/31/21. Appears to be vasovagal in origin as it occurred when having a bowel movement. Likely exacerbated by dehydration given poor PO intake. She was rehydrated with IV fluid bolus and maintenance fluids. Telemetry reviewed with no abnormalities. Continue to monitor orthostatics. FILIBERTO hose have been ordered but she refused. Cardiology following and input appreciated. 02/15/21 13:50 patient is 76-year-old female with history of psychiatry illness and dementia was brought to the emergency department Patient had c/o nausea vomiting and poor appetite she would put food in her mouth but chew or swallow, had lost clost to 50lbs, there is also concerned that patient has history of alcohol abuse, patient and her family to place PEG and was seen by GI and had EGD which showed gastritis and started patient on Protonix, had PEG placed on 02/03/21 and being fed with Gtube, and tolerating, patient was seen by Dr. Lynn and had EEG which was abnormal and consisting with organic or metabolic encephalopathy, patient is still quite confused, and is bed ridden and has difficulty with ambulation, working with PT, Patient grand daughter is present in the room, family has decided to place for rehab in the SNF, will continue to monitor and care team is working with the family. 02/10 there are no family member present today patient is quite somnolent, discussed with tire care manager still waiting for to hear from the family the plan to find the SNF for the patient, continue to monitor and further recommendation to follow. 02/11 currently there are no family member present patient still is not communicative, spoke with the tire care manager who eventually was able to contact family and they have agreed for SNF place, awaiting insurance authorization most likely tomorrow. 02/12 Discuss with tire care manager, patient does not participate PT and therefore insurance will not approve rehab or SNF, patient family does not have financial resources and know how to take of the patient at home as patient is requiring total care feeding, toiletry and activity, patient needs 24hours care, again tomorrow try to work with patient to participate in PT and further recommendation to follow, patient is unable to provider any ROS she is talking to people who are not there, will continue to monitor. 02/13 today patient daughter is present in the room discussed with planning there are in search for placement for the patient. Awaiting occupational therapy evaluation and further recommendation to follow, her insurance company authorization is pending for the SNF. Will continue to monitor. 02/14 today patient clinically stable no family member is present, waiting to hear from family regarding further planning to discharge the patient, I understand patient's family would like to take the patient to [place]. 02/15 patient is clinically stable, waiting to hear from family for discharge planning hopefully tomorrow. (2) Neurocognitive disorder: Code(s): R41.9 - Unspecified symptoms and signs involving cognitive functions and awareness Status: Acute Assessment and Plan: Multifactorial in etiology. Suspect acute delirium related to alcohol withdrawal and metabolic encephalopathy due to UTI superimposed on advanced dementia. Her daughter notes that she has noti
[2021-02-16 05:44] LABS: Basophils Absolute Auto 0.1 K/mm3 (0.0-0.1); Basophils Percent Auto 0.5 % (0.2-1.2); Eosinophils Absolute Auto 0.3 K/mm3 (0-0.3); Eosinophils Percent Auto 2.3 % (0-4.4); Hemoglobin 9.8 g/dL (12.0-15.0); Immature Granulocyte Absolute 0.14 K/mm3 (0.00-0.031); Immature Granulocyte Percent A 1.1 % (0-0.5); Lymphocytes Absolute Auto 1.82 K/mm3 (0.9-3.2); Lymphocytes Percent Auto 14.9 % (18.3-44.2); Mean Corpuscular HGB Conc 31.6 g/dl (32-36); Mean Corpuscular Hemoglobin 30.2 pg (26-34); Mean Corpuscular Volume 95.4 fl (80-100); Mean Platelet Volume 9.1 fl (7.4-10.4); Monocytes Percent Auto 8.2 % (2.6-8.5); Neutrophils Absolute Auto 8.9 K/mm3 (1.3-6.7); Platelet Count Result 405 k/mm3 (150-375); Red Blood Count 3.25 M/mm3 (4.2-5.4); Red Cell Distribution Width 17.3 % (11.5-14.5); White Blood Count 12.2 K/mm3 (4.5-10.0)
[2021-02-16 06:00] VITALS: BP 136/66; PULSE 107; RESP 16; TEMP 36.5; O2SAT 100
[2021-02-16 08:00] VITALS: BP 113/58; BP 122/78; PULSE 96; RESP 18; TEMP 36.2; O2SAT 100
[2021-02-16 08:14] VITALS: PULSE 107
[2021-02-16] MEDS: FAMOTIDINE 20 MG TABLET FEED TUBE ×2 (08:14→21:49)
[2021-02-16] MEDS: METOPROLOL TARTRATE 12.5 MG TABLET FEED TUBE ×2 (08:14→21:49)
[2021-02-16] MEDS: THIAMINE HCL 100 MG TABLET FEED TUBE (08:15)
[2021-02-16] MEDS: FOLIC ACID 1 MG TABLET FEED TUBE (08:15)
[2021-02-16] MEDS: SACCHAROMYCES BOULARDII 250 MG CAPSULE FEED TUBE (08:15)
[2021-02-16] MEDS: MULTIVIT W/ IRON, MINERALS 15 ML LIQUID (*BKC) FEED TUBE (08:15)
[2021-02-16] MEDS: TOLNAFTATE 1% POWDER 45 GM BTL 1 APPLIC TOPICAL ×2 (08:16→21:49)
--- NOTE | 2021-02-16 09:19 | PCPTNOTE ---
Attempted PT reeval. PT refused, states I'm not doing anything today. Explained the importance of therapy and pt still refused.
[2021-02-16 14:00] VITALS: BP 117/65; PULSE 96; RESP 16; TEMP 36.1; O2SAT 100
--- NOTE | 2021-02-16 14:03 | PCPTNOTE ---
Attempted PT reeval. Pt drowsy, refusing to get up. States I'm not getting out of bed. Will try again tomorrow.
--- NOTE | 2021-02-16 16:25 | PM.IMPN ---
Progress Note: A&P Assessment and Plan (1) Syncope: Code(s): R55 - Syncope and collapse Status: Acute Assessment and Plan: Her daughter reported a syncopal episode at home 1 week ago. She had recent echocardiogram performed 11/07/20 which demonstrated EF 55% and grade I diastolic dysfunction, segmental hypokinesis, moderate tricuspid regurgitation. She was orthostatic on orthostatic BP reading. Suspect this was related to dehydration given poor PO intake and diuretics. Carotid doppler with <50% stenosis of bilateral ICA. Telemetry reviewed showing NSR. Patient had a subsequent syncopal episode 01/31/21. Appears to be vasovagal in origin as it occurred when having a bowel movement. Likely exacerbated by dehydration given poor PO intake. She was rehydrated with IV fluid bolus and maintenance fluids. Telemetry reviewed with no abnormalities. Continue to monitor orthostatics. FILIBERTO hose have been ordered but she refused. Cardiology following and input appreciated. 02/16/21 16:25 patient is 76-year-old female with history of psychiatry illness and dementia was brought to the emergency department Patient had c/o nausea vomiting and poor appetite she would put food in her mouth but chew or swallow, had lost clost to 50lbs, there is also concerned that patient has history of alcohol abuse, patient and her family to place PEG and was seen by GI and had EGD which showed gastritis and started patient on Protonix, had PEG placed on 02/03/21 and being fed with Gtube, and tolerating, patient was seen by Dr. Lynn and had EEG which was abnormal and consisting with organic or metabolic encephalopathy, patient is still quite confused, and is bed ridden and has difficulty with ambulation, working with PT, Patient grand daughter is present in the room, family has decided to place for rehab in the SNF, will continue to monitor and care team is working with the family. 02/10 there are no family member present today patient is quite somnolent, discussed with medicare interviewer still waiting for to hear from the family the plan to find the SNF for the patient, continue to monitor and further recommendation to follow. 02/11 currently there are no family member present patient still is not communicative, spoke with the medicare interviewer who eventually was able to contact family and they have agreed for SNF place, awaiting insurance authorization most likely tomorrow. 02/12 Discuss with medicare interviewer, patient does not participate PT and therefore insurance will not approve rehab or SNF, patient family does not have financial resources and know how to take of the patient at home as patient is requiring total care feeding, toiletry and activity, patient needs 24hours care, again tomorrow try to work with patient to participate in PT and further recommendation to follow, patient is unable to provider any ROS she is talking to people who are not there, will continue to monitor. 02/13 today patient daughter is present in the room discussed with planning there are in search for placement for the patient. Awaiting occupational therapy evaluation and further recommendation to follow, her insurance company authorization is pending for the SNF. Will continue to monitor. 02/14 today patient clinically stable no family member is present, waiting to hear from family regarding further planning to discharge the patient, I understand patient's family would like to take the patient to [place]. 02/15 patient is clinically stable, waiting to hear from family for discharge planning hopefully tomorrow. 02/16 patient is clinically stable, waiting to hear from family for discharge planning hopefully tomorrow. Discussed with medicare interviewer still no response from the family (2) Neurocognitive disorder: Code(s): R41.9 - Unspecified symptoms and signs involving cognitive functions and awareness Status: Acute Assessment and Plan: Multifactorial in
[2021-02-16] MEDS: LORazepam (*CRX) 0.5 MG TABLET FEED TUBE (19:23)
[2021-02-16 21:21] VITALS: BP 121/68; PULSE 91; RESP 18; TEMP 36.2; O2SAT 100
[2021-02-16 21:49] VITALS: PULSE 91
[2021-02-17 00:22] LABS: SARS-CoV-2 RNA PCR Negative
[2021-02-17 06:00] VITALS: BP 106/54; PULSE 100; RESP 18; TEMP 35.9; O2SAT 100
--- NOTE | 2021-02-17 08:24 | PCOTNOTE ---
Attempted to see patient for OT, patient uncooperative and unwilling to participate in any activities with lots of encouragement. Will attempt again to see patient in PM if time permits.
[2021-02-17] MEDS: FAMOTIDINE 20 MG TABLET FEED TUBE ×2 (08:54→20:45)
[2021-02-17] MEDS: METOPROLOL TARTRATE 12.5 MG TABLET FEED TUBE ×2 (08:54→20:45)
[2021-02-17] MEDS: FOLIC ACID 1 MG TABLET FEED TUBE (08:54)
[2021-02-17] MEDS: MULTIVIT W/ IRON, MINERALS 15 ML LIQUID (*BKC) FEED TUBE (08:55)
[2021-02-17] MEDS: THIAMINE HCL 100 MG TABLET FEED TUBE (08:55)
[2021-02-17] MEDS: SACCHAROMYCES BOULARDII 250 MG CAPSULE FEED TUBE (08:55)
[2021-02-17] MEDS: TOLNAFTATE 1% POWDER 45 GM BTL 1 APPLIC TOPICAL ×2 (08:56→21:09)
--- NOTE | 2021-02-17 10:27 | PCDIET ---
Nutrition Follow-Up Complete: Nutrition Diagnosis: Inadequate oral intake related to nausea and vomiting as evidenced by patient reported weight loss of 50 lbs. in the past three months. Nutrition Goal: Patient to meet estimated nutritional needs. Goal met. Patient tolerating Jevity 1.2 at 60mL/hr goal rate with 30mL water flush every 4 hours via g-tube. Last recorded weight is 72.1 kg which is down from last review, stable with admission. Bowel Motility: +BM x 1 today. Labs Reviewed: Hgb (9.8), Hct (31.0) Meds Noted: Pepcid, Folic Acid, Lopressor, Centrum, Florastor, Vitamin B1 Additional Notes: Friction areas to sacrum; wound nurse following. Will continue to monitor with same goals. Nutrition Monitoring and Evaluation: Follow up every Tuesday/Tuesday.
[2021-02-17 14:00] VITALS: BP 124/72; PULSE 105; RESP 20; TEMP 35.9; O2SAT 100
--- NOTE | 2021-02-17 14:12 | PC.NURSE ---
On 02/17/21, the student, [ Sole Wiley], provided care and completed [facility] documentation on this patient. I have reviewed the student's documentation and agree with the findings.
[2021-02-17 20:45] VITALS: PULSE 109
[2021-02-17 22:00] VITALS: BP 134/85; PULSE 109; RESP 18; TEMP 36.2; O2SAT 100
[2021-02-18] MEDS: LORazepam (*CRX) 0.5 MG TABLET FEED TUBE ×2 (01:53→17:42)
--- NOTE | 2021-02-18 03:40 | PC.NURSE ---
Patient family member Nadiya Cooney called asking if she has had any ativan. I told her yes she has had it this evening at 01:58. She was yelling out and attempting to pull out on her feeding tube. Nadiya states she does not want Darcy Beverly to have ativan anymore. I will call power of city attorney to see if they want ativan given or not. Nadiya Cooney also stated she has been recording staff.
--- NOTE | 2021-02-18 03:40 | PC.NURSE ---
Patient family member Nadiya Cooney called at 03:
--- NOTE | 2021-02-18 04:24 | PC.NURSE ---
0150 PT YELLING OUT, PULLING CLOTHES OFF AND PULLING AT G-TUBE. PT AGITATED
--- NOTE | 2021-02-18 04:48 | PC.NURSE ---
Call placed to Dr Nuñez and informed of granddaughter Rika phone call regarding medication (Ativan) and privacy issues (family recording in room). Informed Dr Nuñez that family does not wish pt to receive Ativan and wished to have it stopped. Dr Nuñez stated did not want to stop Ativan at this time due to patient frequently becoming agitated and potential harming herself.
--- NOTE | 2021-02-18 05:09 | PC.NURSE ---
Attempted to contact Samaria regarding medication, spoke with someone who called back stated she was Samaria (but who had Rika's phone number) after speaking with her and explaining Dr Nuñez's wishes to keep Ativan prn she stated to leave medication at this time but to talk to the Dr in the morning about a scheduled night time dose and that pt used to take it at home at .
--- NOTE | 2021-02-18 05:15 | PC.NURSE ---
Attempted to speak with Samaria Potter at [phone] there was no answer. I recevied a call from [phone] saying this was Samaria power of document review attorney, medical records show this phone number is Rika Cooney [phone]. She stated she wants prn dose of ativan to be discontinued and a scheduled dose to be started. I told her i will talk to doctor in the morning and had her talk to charge nurse to verify. Charge nurse handed me the phone back and then at the end of the conversation it was told Samaria was on speaker phone with Nadiya.
[2021-02-18 06:00] VITALS: BP 105/67; PULSE 101; RESP 16; TEMP 35.9; O2SAT 100
[2021-02-18 08:51] VITALS: PULSE 101
[2021-02-18] MEDS: METOPROLOL TARTRATE 12.5 MG TABLET FEED TUBE ×2 (08:51→21:27)
[2021-02-18] MEDS: THIAMINE HCL 100 MG TABLET FEED TUBE (08:51)
[2021-02-18] MEDS: FAMOTIDINE 20 MG TABLET FEED TUBE ×2 (08:51→21:27)
[2021-02-18] MEDS: MULTIVIT W/ IRON, MINERALS 15 ML LIQUID (*BKC) FEED TUBE (08:51)
[2021-02-18] MEDS: SACCHAROMYCES BOULARDII 250 MG CAPSULE FEED TUBE (08:51)
[2021-02-18] MEDS: TOLNAFTATE 1% POWDER 45 GM BTL 1 APPLIC TOPICAL ×2 (08:52→21:36)
[2021-02-18] MEDS: FOLIC ACID 1 MG TABLET FEED TUBE (08:52)
--- NOTE | 2021-02-18 10:02 | P.DS_ITS ---
DS: Summary Time Spent with Patient Time attestation: Total time spent providing and/or coordinating discharge ser vices: DS: Data Data Completed and Pending Completed studies during hospitalization: Pending at discharge 01/30/21 14:09 Surgical [PTH] Routine Discharge Plan Discharge Attending physician on discharge: Elizabeth Pastrana Consulting providers: Fabián Foreman ; Emery Richardson ; Dusty Lynn Discharging Clinician: Elizabeth Pastrana Patient Disposition: SNF Activity: as tolerated Diet: tube feeding Discharge Instructions: Patient is clinically and medically stable, will discharge patient to a [place]. patient to follow up with her primary care provider as soon as possible. Patient Instructions: Dehydration (DC), Urinary Tract Infection in Women (DC), Syncope (DC), Pain Management (DC), Parenteral Nutrition (DC), Abuse of Alcohol (DC), Weakness (DC), Altered Mental Status (GEN) Stand Alone Forms: General Discharge Information Follow-up/Referrals: Gilbert Woods MD [Primary Care Provider] - Discharge Medications: New lorazepam 0.5 mg Tablet 0.5 mg feeding tube Q8H PRN (Reason: Agitation) Qty: 12 RF: 0 folic acid 1 mg Tablet 1 mg feeding tube DAILY Qty: 30 RF: 0 alum-mag hydroxide-simeth [Mag-Al Plus] 200-200-20 mg/5 mL Suspension 30 ml feeding tube Q6H PRN (Reason: Indigestion) Qty: 200 RF: 0 Lysiplex Plus Liquid 15 ml feeding tube DAILY Qty: 30 RF: 0 olanzapine [Zyprexa] 2.5 mg Tablet 2.5 mg feeding tube HS Qty: 30 RF: 0 olanzapine [Zyprexa] 10 mg Recon Soln 5 mg IM BID PRN (Reason: Agitation) Qty: 30 RF: 0 Saccharomyces boulardii [Florastor] 250 mg Capsule 250 mg feeding tube DAILY Qty: 30 RF: 0 tolnaftate 1 % Powder 1 applic topical Q12HR Qty: 45 RF: 0 famotidine 20 mg Tablet 20 mg feeding tube Q12HR Qty: 60 RF: 0 thiamine HCl (vitamin B1) [Vitamin B-1] 100 mg Tablet 100 mg feeding tube QAM Qty: 30 RF: 0 acetaminophen [Nortemp] 160 mg/5 mL Suspension 650 mg feeding tube Q4H PRN (Reason: Mild Pain (1-3) Or Fever) Qty: 200 RF: 0 magnesium hydroxide [Milk of Magnesia] 400 mg/5 mL Suspension 30 ml feeding tube QAM PRN (Reason: Constipation) Qty: 200 RF: 0 No Action potassium chloride [Klor-Con 10] 10 mEq tablet extended release 10 meq PO DAILY Qty: 90 RF: 3 furosemide [Lasix] 40 mg tablet 20 mg PO QAM Qty: 90 RF: 3 Date of admission: 01/28/21 12:56 Primary Care Provider: Gilbert Woods Admitting Provider: Elizabeth Pastrana Attending physician on admission: Jerome Connell Condition: Stable Quality VTE Prophylaxis VTE prophylaxis: mechanical ordered
--- NOTE | 2021-02-18 10:46 | PCOTNOTE ---
Attempted to see patient this AM for skilled OT session. Patient asleep upon entry and required call of names along with light touch to be aroused. Patient had difficulty opening eyes and communicating. Patient shook head multiple times with eyes remaining shut when asked for participation with therapy at this time. Will attempt to see patient for a second time if able this date.
--- NOTE | 2021-02-18 11:22 | PCPTNOTE ---
Attempted PT reeval. Pt refused therapy. Encouraged her to participate and she still refused. Will try again at later time.
[2021-02-18 14:00] VITALS: BP 130/75; PULSE 101; RESP 16; TEMP 36.1; O2SAT 100
--- NOTE | 2021-02-18 16:08 | PCPTNOTE ---
Spoke w/ [place] Examiner and Dr Pastrana regarding pt's continued refusals and lack of participation w/ therapy. They agreed w/ DC therapy.
[2021-02-18 20:00] VITALS: PULSE 101; RESP 16; O2SAT 91
[2021-02-18 21:57] VITALS: BP 123/70; PULSE 101; RESP 16; TEMP 36.4; O2SAT 91
[2021-02-19] MEDS: LORazepam (*CRX) 0.5 MG TABLET FEED TUBE (00:46)
[2021-02-19 06:00] VITALS: BP 103/66; PULSE 100; RESP 16; TEMP 36.2; O2SAT 99
[2021-02-19 06:00] LABS: Basophils Absolute Auto 0.1 K/mm3 (0.0-0.1); Basophils Percent Auto 0.7 % (0.2-1.2); Eosinophils Absolute Auto 0.3 K/mm3 (0-0.3); Eosinophils Percent Auto 2.7 % (0-4.4); Hematocrit 31.3 % (37.0-47.0); Hemoglobin 9.8 g/dL (12.0-15.0); Immature Granulocyte Absolute 0.07 K/mm3 (0.00-0.031); Immature Granulocyte Percent A 0.7 % (0-0.5); Lymphocytes Absolute Auto 1.73 K/mm3 (0.9-3.2); Lymphocytes Percent Auto 18.1 % (18.3-44.2); Mean Corpuscular HGB Conc 31.3 g/dl (32-36); Mean Corpuscular Hemoglobin 29.9 pg (26-34); Mean Corpuscular Volume 95.4 fl (80-100); Mean Platelet Volume 9.4 fl (7.4-10.4); Monocytes Absolute Auto 0.8 K/mm3 (0.1-0.6); Monocytes Percent Auto 8.4 % (2.6-8.5); Neutrophils Absolute Auto 6.6 K/mm3 (1.3-6.7); Neutrophils Percent Auto 69.4 % (45.5-73.1); Platelet Count Result 382 k/mm3 (150-375); Red Blood Count 3.28 M/mm3 (4.2-5.4); White Blood Count 9.6 K/mm3 (4.5-10.0)
[2021-02-19 09:24] VITALS: PULSE 98
[2021-02-19] MEDS: THIAMINE HCL 100 MG TABLET FEED TUBE (09:24)
[2021-02-19] MEDS: MULTIVIT W/ IRON, MINERALS 15 ML LIQUID (*BKC) FEED TUBE (09:24)
[2021-02-19] MEDS: METOPROLOL TARTRATE 12.5 MG TABLET FEED TUBE ×2 (09:24→20:40)
[2021-02-19] MEDS: FAMOTIDINE 20 MG TABLET FEED TUBE ×2 (09:25→20:40)
[2021-02-19] MEDS: FOLIC ACID 1 MG TABLET FEED TUBE (09:25)
[2021-02-19] MEDS: TOLNAFTATE 1% POWDER 45 GM BTL 1 APPLIC TOPICAL ×2 (09:25→20:49)
[2021-02-19] MEDS: SACCHAROMYCES BOULARDII 250 MG CAPSULE FEED TUBE (09:25)
[2021-02-19 14:00] VITALS: BP 128/66; PULSE 99; RESP 16; TEMP 37.2; O2SAT 99
--- NOTE | 2021-02-19 14:00 | PM.IMPN ---
Progress Note: A&P Assessment and Plan (1) Syncope: Code(s): R55 - Syncope and collapse Status: Acute Assessment and Plan: Her daughter reported a syncopal episode at home 1 week ago. She had recent echocardiogram performed 11/07/20 which demonstrated EF 55% and grade I diastolic dysfunction, segmental hypokinesis, moderate tricuspid regurgitation. She was orthostatic on orthostatic BP reading. Suspect this was related to dehydration given poor PO intake and diuretics. Carotid doppler with <50% stenosis of bilateral ICA. Telemetry reviewed showing NSR. Patient had a subsequent syncopal episode 01/31/21. Appears to be vasovagal in origin as it occurred when having a bowel movement. Likely exacerbated by dehydration given poor PO intake. She was rehydrated with IV fluid bolus and maintenance fluids. Telemetry reviewed with no abnormalities. Continue to monitor orthostatics. FILIBERTO hose have been ordered but she refused. Cardiology following and input appreciated. 02/17/2021 patient is 76-year-old female with history of psychiatry illness and dementia was brought to the emergency department Patient had c/o nausea vomiting and poor appetite she would put food in her mouth but chew or swallow, had lost clost to 50lbs, there is also concerned that patient has history of alcohol abuse, patient and her family to place PEG and was seen by GI and had EGD which showed gastritis and started patient on Protonix, had PEG placed on 02/03/21 and being fed with Gtube, and tolerating, patient was seen by Dr. Lynn and had EEG which was abnormal and consisting with organic or metabolic encephalopathy, patient is still quite confused, and is bed ridden and has difficulty with ambulation, working with PT, Patient grand daughter is present in the room, family has decided to place for rehab in the SNF, will continue to monitor and care team is working with the family. 02/10 there are no family member present today patient is quite somnolent, discussed with ocular care aide still waiting for to hear from the family the plan to find the SNF for the patient, continue to monitor and further recommendation to follow. 02/11 currently there are no family member present patient still is not communicative, spoke with the ocular care aide who eventually was able to contact family and they have agreed for SNF place, awaiting insurance authorization most likely tomorrow. 02/12 Discuss with ocular care aide, patient does not participate PT and therefore insurance will not approve rehab or SNF, patient family does not have financial resources and know how to take of the patient at home as patient is requiring total care feeding, toiletry and activity, patient needs 24hours care, again tomorrow try to work with patient to participate in PT and further recommendation to follow, patient is unable to provider any ROS she is talking to people who are not there, will continue to monitor. 02/13 today patient daughter is present in the room discussed with planning there are in search for placement for the patient. Awaiting occupational therapy evaluation and further recommendation to follow, her insurance company authorization is pending for the SNF. Will continue to monitor. 02/14 today patient clinically stable no family member is present, waiting to hear from family regarding further planning to discharge the patient, I understand patient's family would like to take the patient to [place]. 02/15 patient is clinically stable, waiting to hear from family for discharge planning hopefully tomorrow. 02/16 patient is clinically stable, waiting to hear from family for discharge planning hopefully tomorrow. Discussed with ocular care aide still no response from the family. 02/17 today patient is clinically stable, unable to provide any detail ROS, family is planning take patient out of state for her penitentiary care, waiting for their response planning and patient is not requir
--- NOTE | 2021-02-19 14:15 | PM.DS ---
DS: Admitting Diagnosis Admitting Diagnosis Admitting Diagnosis: Chief Complaint: Syncope DS: Discharge Diagnosis Discharge Diagnosis (1) Syncope: Code(s): R55 - Syncope and collapse Status: Acute Assessment and Plan: Her daughter reported a syncopal episode at home 1 week ago. She had recent echocardiogram performed 11/07/20 which demonstrated EF 55% and grade I diastolic dysfunction, segmental hypokinesis, moderate tricuspid regurgitation. She was orthostatic on orthostatic BP reading. Suspect this was related to dehydration given poor PO intake and diuretics. Carotid doppler with <50% stenosis of bilateral ICA. Telemetry reviewed showing NSR. Patient had a subsequent syncopal episode 01/31/21. Appears to be vasovagal in origin as it occurred when having a bowel movement. Likely exacerbated by dehydration given poor PO intake. She was rehydrated with IV fluid bolus and maintenance fluids. Telemetry reviewed with no abnormalities. Continue to monitor orthostatics. FILIBERTO hose have been ordered but she refused. Cardiology following and input appreciated. 02/17/2021 patient is 76-year-old female with history of psychiatry illness and dementia was brought to the emergency department Patient had c/o nausea vomiting and poor appetite she would put food in her mouth but chew or swallow, had lost clost to 50lbs, there is also concerned that patient has history of alcohol abuse, patient and her family to place PEG and was seen by GI and had EGD which showed gastritis and started patient on Protonix, had PEG placed on 02/03/21 and being fed with Gtube, and tolerating, patient was seen by Dr. Lynn and had EEG which was abnormal and consisting with organic or metabolic encephalopathy, patient is still quite confused, and is bed ridden and has difficulty with ambulation, working with PT, Patient grand daughter is present in the room, family has decided to place for rehab in the SNF, will continue to monitor and care team is working with the family. 02/10 there are no family member present today patient is quite somnolent, discussed with after school caregiver still waiting for to hear from the family the plan to find the SNF for the patient, continue to monitor and further recommendation to follow. 02/11 currently there are no family member present patient still is not communicative, spoke with the after school caregiver who eventually was able to contact family and they have agreed for SNF place, awaiting insurance authorization most likely tomorrow. 02/12 Discuss with after school caregiver, patient does not participate PT and therefore insurance will not approve rehab or SNF, patient family does not have financial resources and know how to take of the patient at home as patient is requiring total care feeding, toiletry and activity, patient needs 24hours care, again tomorrow try to work with patient to participate in PT and further recommendation to follow, patient is unable to provider any ROS she is talking to people who are not there, will continue to monitor. 02/13 today patient daughter is present in the room discussed with planning there are in search for placement for the patient. Awaiting occupational therapy evaluation and further recommendation to follow, her insurance company authorization is pending for the SNF. Will continue to monitor. 02/14 today patient clinically stable no family member is present, waiting to hear from family regarding further planning to discharge the patient, I understand patient's family would like to take the patient to [place]. 02/15 patient is clinically stable, waiting to hear from family for discharge planning hopefully tomorrow. 02/16 patient is clinically stable, waiting to hear from family for discharge planning hopefully tomorrow. Discussed with after school caregiver still no response from the family. 02/17 today patient is clinically stable, unable to provide any detail ROS, family is planning take patie
--- NOTE | 2021-02-19 15:34 | PM.IMPN ---
Progress Note: A&P Assessment and Plan (1) Syncope: Code(s): R55 - Syncope and collapse Status: Acute Additional Plan 02/19/21 15:34 today patient is clinically stable, unable to provide any detail ROS today patient is sleeping and her daughter is present, did not want me wake her up, Patient was discharged on 02/18, family is planning take patient out of state for her prison care, waiting for their response for discharge planning and patient is not requiring any acute medical management other than requiring her daily ADLs. will continue to monitor and provider her daily care. Subjective Date/time seen: 02/19/21 15:34 today patient is clinically stable, unable to provide any detail ROS today patient is sleeping and her daughter is present, did not want me wake her up, Patient was discharged on 02/18, family is planning take patient out of state for her prison care, waiting for their response for discharge planning and patient is not requiring any acute medical management other than requiring her daily ADLs. will continue to monitor and provider her daily care. Review of Systems Review of Systems: ROS unobtainable: Yes unobtainable due to medical condition Exam Narrative: Exam Narrative: Exam Narrative: Patient is comfortable, NAD HEENT:sleeping LUNGS: Normal respiratory effort ABD: Nondistended Lower extremities: no edema SKIN: nonjaundiced Neuro: Somnolent. Objective Data Vital Signs Vital Signs: Vital Signs - 24 hr 02/18/21 20:00 02/18/21 21:57 02/19/21 06:00 Temperature 97.6 F 97.2 F L Pulse Rate 101 H 101 H 100 Respiratory Rate 16 16 16 Blood Pressure 123/70 103/66 Pulse Oximetry 91 91 99 02/19/21 09:24 02/19/21 14:00 Temperature 98.9 F Pulse Rate 98 99 Respiratory Rate 16 Blood Pressure 128/66 Pulse Oximetry 99 Intake/Output Intake/Output: Intake & Output 02/16/21 02/17/21 02/18/21 02/19/21 23:59 23:59 23:59 23:59 Intake Total 1572 1440 1422 Output Total 650 1250 1325 350 Balance 922 190 97 -350 Meds/Results Medications: Active Medications Generic Name Dose Route Start Last Admin Trade Name Freq PRN Reason Stop Dose Admin Acetaminophen 650 mg 02/11/21 15:48 02/11/21 16:28 Acetaminophen Elixir 325 Mg/10.15 Ml Udc FEED TUBE 650 mg Q4H PRN Administration Mild Pain (1-3) or Fever Al Hydrox/Mg Hydrox/Simethicone 30 ml 02/06/21 19:35 Mag Hydrox/Al Hydrox/Simeth 30 Ml Udc FEED TUBE Q6H PRN Indigestion Famotidine 20 mg 02/09/21 09:15 02/19/21 09:25 Famotidine 20 Mg Tablet FEED TUBE 20 mg Q12HR MILAGROS Administration Folic Acid 1 mg 02/07/21 09:00 02/19/21 09:25 Folic Acid 1 Mg Tablet FEED TUBE 1 mg DAILY MILAGROS Administration Lorazepam 0.5 mg 02/06/21 19:35 02/19/21 00:46 Lorazepam (*Crx) 0.5 Mg Tablet FEED TUBE 0.5 mg Q8H PRN Administration Agitation Magnesium Hydroxide 30 ml 02/12/21 08:15 02/12/21 08:56 Magnesium Hydroxide Susp 30 Ml Udc FEED TUBE 30 ml QAM PRN Administration Constipation Metoprolol Tartrate 12.5 mg 02/07/21 09:00 02/19/21 09:24 Metoprolol Tartrate 12.5 Mg Tablet FEED TUBE 12.5 mg Q12HR MILAGROS Administration Multivitamins/Minerals 15 ml 02/07/21 09:00 02/19/21 09:24 Multivit W/ Iron, Minerals 15 Ml Liquid (*Bkc) FEED TUBE 15 ml DAILY MILAGROS Administration Olanzapine 5 mg 01/29/21 12:18 02/07/21 04:15 Olanzapine 10 Mg Inj Vial IM 5 mg BID PRN Administration Agitation Olanzapine 5 mg 02/06/21 19:35 02/18/21 15:14 Olanzapine Tab 5 Mg Tablet FEED TUBE 5 mg BID PRN Administration Agitation Olanzapine 2.5 mg 02/06/21 21:00 02/18/21 21:29 Olanzapine Tab 2.5 Mg Tablet FEED TUBE 2.5 mg HS MILAGROS Administration Ondansetron HCl 4 mg 01/25/21 13:36 Ondansetron Inj 4 Mg/2 Ml Vial IV PUSH Q6H PRN Nausea And Vomiting Saccharomyces Boulardii 250 mg 02/08/21 09:00 02/19/21 09:25 Ifrah Solano
[2021-02-19 20:40] VITALS: PULSE 100
[2021-02-20 06:00] VITALS: BP 134/75; PULSE 100; RESP 18; TEMP 36.3; O2SAT 100
--- NOTE | 2021-02-20 06:11 | PC.NURSE ---
PTS GRANDDAUGHTER RADHA CALLED TO QUESTION ABOUT HOW PT DID DURING THE NIGHT, INFORMED HER THAT PT HAD A GOOD NIGHT SLEPT OFF AND ON. RADHA STATES SHE IS GOING TO SPEND THE NIGHT THIS WEEKEND, INFORMED HER THAT SHE NEEDS TO GET IT CLEARED THRU DIRECTOR. SHE STATES SIRISHA ALREADY GOT IT APPROVED. HUNG UP PHONE. RADHA CALLED RIGHT BACK TO INFORM ME THAT THERE WAS A CAMERA ON THE PT AND HAS BEEN ON HER SINCE SHE ENTERED THE HOSPITAL AND STATES WE WILL NEVER FIND THE LOCATION OF THE CAMERA
--- NOTE | 2021-02-20 08:02 | PCOTNOTE ---
Attempted to see patient for OT, patient became increasingly agitated and refused to participate in any activities with RICH. This RICH recommends to OTR that patient be discharged from therapy due to lack of participation and repeated refusals.
[2021-02-20] MEDS: FAMOTIDINE 20 MG TABLET FEED TUBE ×2 (09:18→21:00)
[2021-02-20] MEDS: THIAMINE HCL 100 MG TABLET FEED TUBE (09:18)
[2021-02-20] MEDS: MULTIVIT W/ IRON, MINERALS 15 ML LIQUID (*BKC) FEED TUBE (09:18)
[2021-02-20] MEDS: SACCHAROMYCES BOULARDII 250 MG CAPSULE FEED TUBE (09:18)
[2021-02-20 09:19] VITALS: PULSE 100
[2021-02-20] MEDS: FOLIC ACID 1 MG TABLET FEED TUBE (09:19)
[2021-02-20] MEDS: TOLNAFTATE 1% POWDER 45 GM BTL 1 APPLIC TOPICAL ×2 (09:19→21:00)
[2021-02-20] MEDS: METOPROLOL TARTRATE 12.5 MG TABLET FEED TUBE ×2 (09:19→20:59)
--- NOTE | 2021-02-20 11:22 | PCNFU ---
Nutrition Follow-Up Complete: Inadequate oral intake related to nausea and vomiting as evidenced by patient reported weight loss of 50 lbs. in the past three months. Goal: Patient to meet estimated nutritional needs. Patient is tolerating current tube feeding, Jevity 1.2 at 60 ml per hour over 22 hours per day. Pt current nutrition is Jevity 1.2 at 60 ml per hour over 22 hours per day. Last recorded weight is 60.7 kg. Fairly stable weight upon admission. Bowel Motility: + BM 02/18 Labs Reviewed: Hgb 9.8, Hct 31.3 Meds Noted: Mylanta, Zofran, Protonix, Pepcid, Folic Acid, Lopressor, Vitamin B-1 Additional Notes: Spoke with patient's nurse. Nurse reported patient is tolerating current tube with no residuals. Jevity 1.2 at 60 ml per hour over 22 hours per day provides patient with 1,584 calories, 73.3 grams of protein, and 1,065 ml of water. With the 30 ml water flush patient receives a total of 1,245 mls of water. Monitor patients labs, medications, weight, and oral intake every Tuesday and Tuesday.
--- NOTE | 2021-02-20 12:06 | PCNSR ---
On 02/20/21, the student,Sonia Espino, provided care and completed [facility] documentation on this patient. I have reviewed the student's documentation and agree with the findings.
--- NOTE | 2021-02-20 12:45 | PM.IMPN ---
Progress Note: A&P Assessment and Plan (1) Syncope: Code(s): R55 - Syncope and collapse Status: Acute Assessment and Plan: Pt seen and examined continue current care. interval history: Family is planning take patient out of state for her skilled nursing care, waiting for their response planning and patient is not requiring any acute medical management other than requiring her daily ADLs. Subjective Date/time seen: 02/20/21 12:45 Interval history: Mrs. Sanchez is a 76 year old with a history of hypertension and hyperlipidemia who is seen in follow-up for anorexia and weakness. Patient had NG tube placed 3 days ago, tolerating feeding well. Pt seen and examined stable some delusions. Review of Systems Review of Systems: ROS unobtainable: Yes unobtainable due to mental status Exam Narrative: Exam Narrative: Exam Narrative: Patient is comfortable, delusional. LUNGS: Normal respiratory effort ABDO: Nondistended Lower extremities: no edema SKIN: nonjaundiced Objective Data Vital Signs Vital Signs: Vital Signs - 24 hr 02/19/21 14:00 02/19/21 20:40 02/20/21 06:00 Temperature 37.2 C 36.3 C L Pulse Rate 99 100 100 Respiratory Rate 16 18 Blood Pressure 128/66 134/75 Pulse Oximetry 99 100 02/20/21 09:19 Temperature Pulse Rate 100 Respiratory Rate Blood Pressure Pulse Oximetry Intake/Output Intake/Output: Intake & Output 02/17/21 02/18/21 02/19/21 02/20/21 23:59 23:59 23:59 23:59 Intake Total 1440 1422 920 Output Total 1250 1325 900 350 Balance 190 97 -900 570 Meds/Results Medications: Active Medications Generic Name Dose Route Start Last Admin Trade Name Freq PRN Reason Stop Dose Admin Acetaminophen 650 mg 02/11/21 15:48 02/11/21 16:28 Acetaminophen Elixir 325 Mg/10.15 Ml Udc FEED TUBE 650 mg Q4H PRN Administration Mild Pain (1-3) or Fever Al Hydrox/Mg Hydrox/Simethicone 30 ml 02/06/21 19:35 Mag Hydrox/Al Hydrox/Simeth 30 Ml Udc FEED TUBE Q6H PRN Indigestion Famotidine 20 mg 02/09/21 09:15 02/20/21 09:18 Famotidine 20 Mg Tablet FEED TUBE 20 mg Q12HR MILAGROS Administration Folic Acid 1 mg 02/07/21 09:00 02/20/21 09:19 Folic Acid 1 Mg Tablet FEED TUBE 1 mg DAILY MILAGROS Administration Lorazepam 0.5 mg 02/06/21 19:35 02/19/21 00:46 Lorazepam (*Crx) 0.5 Mg Tablet FEED TUBE 0.5 mg Q8H PRN Administration Agitation Magnesium Hydroxide 30 ml 02/12/21 08:15 02/12/21 08:56 Magnesium Hydroxide Susp 30 Ml Udc FEED TUBE 30 ml QAM PRN Administration Constipation Metoprolol Tartrate 12.5 mg 02/07/21 09:00 02/20/21 09:19 Metoprolol Tartrate 12.5 Mg Tablet FEED TUBE 12.5 mg Q12HR MILAGROS Administration Multivitamins/Minerals 15 ml 02/07/21 09:00 02/20/21 09:18 Multivit W/ Iron, Minerals 15 Ml Liquid (*Bkc) FEED TUBE 15 ml DAILY MILAGROS Administration Olanzapine 5 mg 01/29/21 12:18 02/07/21 04:15 Olanzapine 10 Mg Inj Vial IM 5 mg BID PRN Administration Agitation Olanzapine 5 mg 02/06/21 19:35 02/20/21 09:18 Olanzapine Tab 5 Mg Tablet FEED TUBE 5 mg BID PRN Administration Agitation Olanzapine 2.5 mg 02/06/21 21:00 02/19/21 20:41 Olanzapine Tab 2.5 Mg Tablet FEED TUBE 2.5 mg HS MILAGROS Administration Ondansetron HCl 4 mg 01/25/21 13:36 Ondansetron Inj 4 Mg/2 Ml Vial IV PUSH Q6H PRN Nausea And Vomiting Saccharomyces Boulardii 250 mg 02/08/21 09:00 02/20/21 09:18 Saccharomyces Boulardii 250 Mg Capsule FEED TUBE 250 mg DAILY MILAGROS Administration Thiamine HCl 100 mg 02/09/21 09:00 02/20/21 09:18 Thiamine Hcl 100 Mg Tablet FEED TUBE 100 mg QAM MILAGROS Administration Tolnaftate 1 applic 02/07/21 14:00 02/20/21 09:19 Tolnaftate 1% Powder 45 Gm Btl TOPICAL 1 applic Q12HR MILAGROS Administration Radiology Results: ITS Impressions Chest X-Ray 01/25/21 11:01 IMPRESSION: No active cardiopulmonary disease
[2021-02-20 14:00] VITALS: BP 120/52; PULSE 97; RESP 18; TEMP 36.6; O2SAT 100
[2021-02-20] MEDS: LORazepam (*CRX) 0.5 MG TABLET FEED TUBE (14:22)
--- NOTE | 2021-02-20 14:36 | PCOTNOTE ---
Patient discharged from OT services this date as they continuously refuse to participate with therapy, are frequently agitated, and can become aggressive. Physician agreeable to discharge from OT services.
[2021-02-20 17:45] LABS: SARS-CoV-2 RNA PCR Negative
[2021-02-20 20:33] VITALS: BP 112/82; PULSE 101; RESP 18; TEMP 36.1; O2SAT 100
[2021-02-20 20:59] VITALS: PULSE 101
[2021-02-21 05:28] VITALS: BP 104/81; PULSE 86; RESP 18; TEMP 36.2; O2SAT 100
[2021-02-21] MEDS: SACCHAROMYCES BOULARDII 250 MG CAPSULE FEED TUBE (08:27)
[2021-02-21] MEDS: FAMOTIDINE 20 MG TABLET FEED TUBE ×2 (08:27→20:08)
[2021-02-21 08:28] VITALS: PULSE 90
[2021-02-21] MEDS: THIAMINE HCL 100 MG TABLET FEED TUBE (08:28)
[2021-02-21] MEDS: METOPROLOL TARTRATE 12.5 MG TABLET FEED TUBE ×2 (08:28→20:08)
[2021-02-21] MEDS: MULTIVIT W/ IRON, MINERALS 15 ML LIQUID (*BKC) FEED TUBE (08:28)
[2021-02-21] MEDS: TOLNAFTATE 1% POWDER 45 GM BTL 1 APPLIC TOPICAL ×2 (08:28→20:09)
[2021-02-21] MEDS: FOLIC ACID 1 MG TABLET FEED TUBE (08:28)
--- NOTE | 2021-02-21 13:13 | PM.IMPN ---
Progress Note: A&P Assessment and Plan (1) Syncope: Code(s): R55 - Syncope and collapse Status: Acute Assessment and Plan: Pt seen and examined continue current care. interval history: Family is planning take patient out of state for her detention care, waiting for their response planning and patient is not requiring any acute medical management other than requiring her daily ADLs. Additional Plan Interval history: Patient was discharged on 02/18, family is planning take patient out of state for her detention care, waiting for their response for discharge planning and patient is not requiring any acute medical management other than requiring her daily ADLs. Subjective Date/time seen: 02/21/21 13:13 Interval history: Mrs. Sanchez is a 76 year old with a history of hypertension and hyperlipidemia who is seen in follow-up for anorexia and weakness. Patient had NG tube placed 4 days ago, tolerating feeding well. Pt seen and examined stable some delusions. Awaiting placement. Review of Systems Review of Systems: All systems reviewed & are unremarkable except as noted in HPI and below Exam Narrative: Exam Narrative: Exam Narrative: Patient is comfortable, delusional. LUNGS: Normal respiratory effort ABDO: Nondistended Lower extremities: no edema SKIN: nonjaundiced Objective Data Vital Signs Vital Signs: Vital Signs - 24 hr 02/20/21 14:00 02/20/21 20:33 02/20/21 20:59 Temperature 36.6 C 36.1 C L Pulse Rate 97 101 H 101 H Respiratory Rate 18 18 Blood Pressure 120/52 L 112/82 Pulse Oximetry 100 100 02/21/21 05:28 02/21/21 08:28 Temperature 36.2 C L Pulse Rate 86 90 Respiratory Rate 18 Blood Pressure 104/81 Pulse Oximetry 100 Intake/Output Intake/Output: Intake & Output 02/18/21 02/19/21 02/20/21 02/21/21 23:59 23:59 23:59 23:59 Intake Total 1422 1060 1860 779 Output Total 1325 900 900 900 Balance 97 160 960 -121 Meds/Results Medications: Active Medications Generic Name Dose Route Start Last Admin Trade Name Freq PRN Reason Stop Dose Admin Acetaminophen 650 mg 02/11/21 15:48 02/11/21 16:28 Acetaminophen Elixir 325 Mg/10.15 Ml Udc FEED TUBE 650 mg Q4H PRN Administration Mild Pain (1-3) or Fever Al Hydrox/Mg Hydrox/Simethicone 30 ml 02/06/21 19:35 Mag Hydrox/Al Hydrox/Simeth 30 Ml Udc FEED TUBE Q6H PRN Indigestion Famotidine 20 mg 02/09/21 09:15 02/21/21 08:27 Famotidine 20 Mg Tablet FEED TUBE 20 mg Q12HR MILAGROS Administration Folic Acid 1 mg 02/07/21 09:00 02/21/21 08:28 Folic Acid 1 Mg Tablet FEED TUBE 1 mg DAILY MILAGROS Administration Lorazepam 0.5 mg 02/06/21 19:35 02/20/21 14:22 Lorazepam (*Crx) 0.5 Mg Tablet FEED TUBE 0.5 mg Q8H PRN Administration Agitation Magnesium Hydroxide 30 ml 02/12/21 08:15 02/12/21 08:56 Magnesium Hydroxide Susp 30 Ml Udc FEED TUBE 30 ml QAM PRN Administration Constipation Metoprolol Tartrate 12.5 mg 02/07/21 09:00 02/21/21 08:28 Metoprolol Tartrate 12.5 Mg Tablet FEED TUBE 12.5 mg Q12HR MILAGROS Administration Multivitamins/Minerals 15 ml 02/07/21 09:00 02/21/21 08:28 Multivit W/ Iron, Minerals 15 Ml Liquid (*Bkc) FEED TUBE 15 ml DAILY MILAGROS Administration Olanzapine 5 mg 01/29/21 12:18 02/07/21 04:15 Olanzapine 10 Mg Inj Vial IM 5 mg BID PRN Administration Agitation Olanzapine 5 mg 02/06/21 19:35 02/20/21 09:18 Olanzapine Tab 5 Mg Tablet FEED TUBE 5 mg BID PRN Administration Agitation Olanzapine 2.5 mg 02/06/21 21:00 02/20/21 20:59 Olanzapine Tab 2.5 Mg Tablet FEED TUBE 2.5 mg HS MILAGROS Administration Ondansetron HCl 4 mg 01/25/21 13:36 Ondansetron Inj 4 Mg/2 Ml Vial IV PUSH Q6H PRN Nausea And Vomiting Saccharomyces Boulardii 250 mg 02/08/21 09:00 02/21/21 08:27 Saccharomyces Boulardii 250 Mg Capsule FEED TUBE 250 mg DAILY MILAGROS Administration Thiamine HCl
[2021-02-21 15:24] VITALS: BP 122/59; PULSE 104; RESP 22; TEMP 37.3; O2SAT 100
[2021-02-21 20:08] VITALS: PULSE 101
[2021-02-21 21:35] VITALS: BP 117/75; PULSE 105; RESP 18; TEMP 36.2; O2SAT 98
[2021-02-22 05:00] VITALS: BP 110/58; PULSE 69; RESP 18; TEMP 36.1; O2SAT 100
[2021-02-22 08:18] VITALS: PULSE 71
[2021-02-22] MEDS: METOPROLOL TARTRATE 12.5 MG TABLET FEED TUBE ×2 (08:18→21:08)
[2021-02-22] MEDS: FOLIC ACID 1 MG TABLET FEED TUBE (08:18)
[2021-02-22] MEDS: MULTIVIT W/ IRON, MINERALS 15 ML LIQUID (*BKC) FEED TUBE (08:18)
[2021-02-22] MEDS: SACCHAROMYCES BOULARDII 250 MG CAPSULE FEED TUBE (08:18)
[2021-02-22] MEDS: TOLNAFTATE 1% POWDER 45 GM BTL 1 APPLIC TOPICAL ×2 (08:19→21:52)
[2021-02-22] MEDS: FAMOTIDINE 20 MG TABLET FEED TUBE ×2 (08:19→21:08)
[2021-02-22] MEDS: THIAMINE HCL 100 MG TABLET FEED TUBE (08:19)
--- NOTE | 2021-02-22 13:06 | PM.IMPN ---
Progress Note: A&P Assessment and Plan (1) Syncope: Code(s): R55 - Syncope and collapse Status: Acute Assessment and Plan: Her daughter reported a syncopal episode at home 1 week ago. She had recent echocardiogram performed 11/07/20 which demonstrated EF 55% and grade I diastolic dysfunction, segmental hypokinesis, moderate tricuspid regurgitation. She was orthostatic on orthostatic BP reading. Suspect this was related to dehydration given poor PO intake and diuretics. Carotid doppler with <50% stenosis of bilateral ICA. Telemetry reviewed showing NSR. Patient had a subsequent syncopal episode 01/31/21. Appears to be vasovagal in origin as it occurred when having a bowel movement. Likely exacerbated by dehydration given poor PO intake. She was rehydrated with IV fluid bolus and maintenance fluids. Telemetry reviewed with no abnormalities. Continue to monitor orthostatics. FILIBERTO hose have been ordered but she refused. Cardiology following and input appreciated. 02/17/2021 patient is 76-year-old female with history of psychiatry illness and dementia was brought to the emergency department Patient had c/o nausea vomiting and poor appetite she would put food in her mouth but chew or swallow, had lost clost to 50lbs, there is also concerned that patient has history of alcohol abuse, patient and her family to place PEG and was seen by GI and had EGD which showed gastritis and started patient on Protonix, had PEG placed on 02/03/21 and being fed with Gtube, and tolerating, patient was seen by Dr. Lynn and had EEG which was abnormal and consisting with organic or metabolic encephalopathy, patient is still quite confused, and is bed ridden and has difficulty with ambulation, working with PT, Patient grand daughter is present in the room, family has decided to place for rehab in the SNF, will continue to monitor and care team is working with the family. 02/10 there are no family member present today patient is quite somnolent, discussed with health care legal assistant still waiting for to hear from the family the plan to find the SNF for the patient, continue to monitor and further recommendation to follow. 02/11 currently there are no family member present patient still is not communicative, spoke with the health care legal assistant who eventually was able to contact family and they have agreed for SNF place, awaiting insurance authorization most likely tomorrow. 02/12 Discuss with health care legal assistant, patient does not participate PT and therefore insurance will not approve rehab or SNF, patient family does not have financial resources and know how to take of the patient at home as patient is requiring total care feeding, toiletry and activity, patient needs 24hours care, again tomorrow try to work with patient to participate in PT and further recommendation to follow, patient is unable to provider any ROS she is talking to people who are not there, will continue to monitor. 02/13 today patient daughter is present in the room discussed with planning there are in search for placement for the patient. Awaiting occupational therapy evaluation and further recommendation to follow, her insurance company authorization is pending for the SNF. Will continue to monitor. 02/14 today patient clinically stable no family member is present, waiting to hear from family regarding further planning to discharge the patient, I understand patient's family would like to take the patient to [place]. 02/15 patient is clinically stable, waiting to hear from family for discharge planning hopefully tomorrow. 02/16 patient is clinically stable, waiting to hear from family for discharge planning hopefully tomorrow. Discussed with health care legal assistant still no response from the family. 02/17 today patient is clinically stable, unable to provide any detail ROS, family is planning take patient out of state for her custodial care, waiting for their response planning and patient is not requir
[2021-02-22 14:00] VITALS: BP 131/69; PULSE 85; RESP 20; TEMP 36.9; O2SAT 93
[2021-02-22 21:08] VITALS: PULSE 102
[2021-02-22 21:40] VITALS: BP 123/49; PULSE 103; RESP 18; TEMP 36.6; O2SAT 96
[2021-02-23 05:32] LABS: Basophils Absolute Auto 0.1 K/mm3 (0.0-0.1); Basophils Percent Auto 0.5 % (0.2-1.2); Eosinophils Absolute Auto 0.3 K/mm3 (0-0.3); Eosinophils Percent Auto 2.5 % (0-4.4); Hematocrit 32.2 % (37.0-47.0); Hemoglobin 10.1 g/dL (12.0-15.0); Immature Granulocyte Absolute 0.09 K/mm3 (0.00-0.031); Immature Granulocyte Percent A 0.8 % (0-0.5); Lymphocytes Absolute Auto 2.07 K/mm3 (0.9-3.2); Lymphocytes Percent Auto 18.9 % (18.3-44.2); Mean Corpuscular HGB Conc 31.4 g/dl (32-36); Mean Corpuscular Hemoglobin 29.5 pg (26-34); Mean Corpuscular Volume 94.2 fl (80-100); Mean Platelet Volume 9.4 fl (7.4-10.4); Monocytes Percent Auto 8.8 % (2.6-8.5); Neutrophils Absolute Auto 7.5 K/mm3 (1.3-6.7); Neutrophils Percent Auto 68.5 % (45.5-73.1); Platelet Count Result 343 k/mm3 (150-375); Red Blood Count 3.42 M/mm3 (4.2-5.4); Red Cell Distribution Width 16.9 % (11.5-14.5)
[2021-02-23 06:00] VITALS: BP 118/51; PULSE 108; RESP 16; TEMP 36.6; O2SAT 97
[2021-02-23] MEDS: MULTIVIT W/ IRON, MINERALS 15 ML LIQUID (*BKC) FEED TUBE (09:48)
[2021-02-23] MEDS: FOLIC ACID 1 MG TABLET FEED TUBE (09:48)
[2021-02-23 09:49] VITALS: PULSE 96
[2021-02-23] MEDS: METOPROLOL TARTRATE 12.5 MG TABLET FEED TUBE ×2 (09:49→20:03)
[2021-02-23] MEDS: FAMOTIDINE 20 MG TABLET FEED TUBE ×2 (09:49→20:03)
[2021-02-23 09:52] VITALS: RESP 16; O2SAT 96
[2021-02-23] MEDS: SACCHAROMYCES BOULARDII 250 MG CAPSULE FEED TUBE (09:52)
[2021-02-23] MEDS: TOLNAFTATE 1% POWDER 45 GM BTL 1 APPLIC TOPICAL ×2 (09:52→20:05)
[2021-02-23] MEDS: THIAMINE HCL 100 MG TABLET FEED TUBE (09:52)
--- NOTE | 2021-02-23 12:23 | PM.IMPN ---
Progress Note: A&P Assessment and Plan (1) Syncope: Code(s): R55 - Syncope and collapse Status: Acute Assessment and Plan: Pt seen and examined continue current care. interval history: Family is planning take patient out of state for her half-way care, waiting for their response planning and patient is not requiring any acute medical management other than requiring her daily ADLs. Additional Plan Interval history: Patient was discharged on 02/18, family is planning take patient out of state for her half-way care, waiting for their response for discharge planning and patient is not requiring any acute medical management other than requiring her daily ADLs. Subjective Date/time seen: 02/23/21 12:23 Interval history: Mrs. Sanchez is a 76 year old with a history of hypertension and hyperlipidemia who is seen in follow-up for anorexia and weakness. Patient had NG tube placed 4 days ago, tolerating feeding well. Pt seen and examined stable some delusions. Awaiting placement or discharge with her family. Discharge orders already in place. Review of Systems Review of Systems: ROS unobtainable: Yes unobtainable due to medical condition Exam Narrative: Exam Narrative: Exam Narrative: Patient is comfortable, delusional. LUNGS: Normal respiratory effort ABDO: Nondistended Lower extremities: no edema SKIN: nonjaundiced Objective Data Vital Signs Vital Signs: Vital Signs - 24 hr 02/22/21 14:00 02/22/21 21:08 02/22/21 21:40 Temperature 36.9 C 36.6 C Pulse Rate 85 102 H 103 H Respiratory Rate 20 18 Blood Pressure 131/69 123/49 L Pulse Oximetry 93 96 02/23/21 06:00 02/23/21 09:49 02/23/21 09:52 Temperature 36.6 C Pulse Rate 108 H 96 Respiratory Rate 16 16 Blood Pressure 118/51 L Pulse Oximetry 97 96 Intake/Output Intake/Output: Intake & Output 02/20/21 02/21/21 02/22/21 02/23/21 23:59 23:59 23:59 23:59 Intake Total 1860 1477 727 930 Output Total 900 1525 750 350 Balance 960 -48 -23 580 Meds/Results Medications: Active Medications Generic Name Dose Route Start Last Admin Trade Name Freq PRN Reason Stop Dose Admin Acetaminophen 650 mg 02/11/21 15:48 02/11/21 16:28 Acetaminophen Elixir 325 Mg/10.15 Ml Udc FEED TUBE 650 mg Q4H PRN Administration Mild Pain (1-3) or Fever Al Hydrox/Mg Hydrox/Simethicone 30 ml 02/06/21 19:35 Mag Hydrox/Al Hydrox/Simeth 30 Ml Udc FEED TUBE Q6H PRN Indigestion Famotidine 20 mg 02/09/21 09:15 02/23/21 09:49 Famotidine 20 Mg Tablet FEED TUBE 20 mg Q12HR MILAGROS Administration Folic Acid 1 mg 02/07/21 09:00 02/23/21 09:48 Folic Acid 1 Mg Tablet FEED TUBE 1 mg DAILY MILAGROS Administration Lorazepam 0.5 mg 02/06/21 19:35 02/20/21 14:22 Lorazepam (*Crx) 0.5 Mg Tablet FEED TUBE 0.5 mg Q8H PRN Administration Agitation Magnesium Hydroxide 30 ml 02/12/21 08:15 02/12/21 08:56 Magnesium Hydroxide Susp 30 Ml Udc FEED TUBE 30 ml QAM PRN Administration Constipation Metoprolol Tartrate 12.5 mg 02/07/21 09:00 02/23/21 09:49 Metoprolol Tartrate 12.5 Mg Tablet FEED TUBE 12.5 mg Q12HR MILAGROS Administration Multivitamins/Minerals 15 ml 02/07/21 09:00 02/23/21 09:48 Multivit W/ Iron, Minerals 15 Ml Liquid (*Bkc) FEED TUBE 15 ml DAILY MILAGROS Administration Olanzapine 5 mg 01/29/21 12:18 02/07/21 04:15 Olanzapine 10 Mg Inj Vial IM 5 mg BID PRN Administration Agitation Olanzapine 5 mg 02/06/21 19:35 02/20/21 09:18 Olanzapine Tab 5 Mg Tablet FEED TUBE 5 mg BID PRN Administration Agitation Olanzapine 2.5 mg 02/06/21 21:00 02/22/21 21:08 Olanzapine Tab 2.5 Mg Tablet FEED TUBE 2.5 mg HS MILAGROS Administration Ondansetron HCl 4 mg 01/25/21 13:36 Ondansetron Inj 4 Mg/2 Ml Vial IV PUSH Q6H PRN Nausea And Vomiting Saccharomyces Boulardii 250 mg 02/08/21 09:00 02/23/21 09:52 Saccharomyces Boulardii 250
[2021-02-23 14:00] VITALS: BP 113/55; PULSE 86; RESP 16; TEMP 36.1; O2SAT 98
[2021-02-23 19:56] VITALS: BP 119/61; PULSE 82; RESP 18; TEMP 36.2; O2SAT 97
[2021-02-23 20:03] VITALS: PULSE 60
[2021-02-23 20:12] LABS: SARS-CoV-2 RNA PCR Negative
--- NOTE | 2021-03-09 08:25 | PM.DS ---
DS: Admitting Diagnosis Admitting Diagnosis Admitting Diagnosis: DISCHARGE SUMMARY FOR 02/23/[address] Combs DISCHARGE SUMMARY DS: Admitting Diagnosis Admitting Diagnosis Admitting Diagnosis: Chief Complaint: Syncope DS: Discharge Diagnosis Discharge Diagnosis (1) Syncope: Code(s): R55 - Syncope and collapse Status: Acute Assessment and Plan: Her daughter reported a syncopal episode at home 1 week ago. She had recent echocardiogram performed 11/07/20 which demonstrated EF 55% and grade I diastolic dysfunction, segmental hypokinesis, moderate tricuspid regurgitation. She was orthostatic on orthostatic BP reading. Suspect this was related to dehydration given poor PO intake and diuretics. Carotid doppler with <50% stenosis of bilateral ICA. Telemetry reviewed showing NSR. Patient had a subsequent syncopal episode 01/31/21. Appears to be vasovagal in origin as it occurred when having a bowel movement. Likely exacerbated by dehydration given poor PO intake. She was rehydrated with IV fluid bolus and maintenance fluids. Telemetry reviewed with no abnormalities. Continue to monitor orthostatics. FILIBERTO hose have been ordered but she refused. Cardiology following and input appreciated. 02/17/2021 patient is 76-year-old female with history of psychiatry illness and dementia was brought to the emergency department Patient had c/o nausea vomiting and poor appetite she would put food in her mouth but chew or swallow, had lost clost to 50lbs, there is also concerned that patient has history of alcohol abuse, patient and her family to place PEG and was seen by GI and had EGD which showed gastritis and started patient on Protonix, had PEG placed on 02/03/21 and being fed with Gtube, and tolerating, patient was seen by Dr. Lynn and had EEG which was abnormal and consisting with organic or metabolic encephalopathy, patient is still quite confused, and is bed ridden and has difficulty with ambulation, working with PT, Patient grand daughter is present in the room, family has decided to place for rehab in the SNF, will continue to monitor and care team is working with the family. 02/10 there are no family member present today patient is quite somnolent, discussed with care transitions nurse still waiting for to hear from the family the plan to find the SNF for the patient, continue to monitor and further recommendation to follow. 02/11 currently there are no family member present patient still is not communicative, spoke with the care transitions nurse who eventually was able to contact family and they have agreed for SNF place, awaiting insurance authorization most likely tomorrow. 02/12 Discuss with care transitions nurse, patient does not participate PT and therefore insurance will not approve rehab or SNF, patient family does not have financial resources and know how to take of the patient at home as patient is requiring total care feeding, toiletry and activity, patient needs 24hours care, again tomorrow try to work with patient to participate in PT and further recommendation to follow, patient is unable to provider any ROS she is talking to people who are not there, will continue to monitor. 02/13 today patient daughter is present in the room discussed with planning there are in search for placement for the patient. Awaiting occupational therapy evaluation and further recommendation to follow, her insurance company authorization is pending for the SNF. Will continue to monitor. 02/14 today patient clinically stable no family member is present, waiting to hear from family regarding further planning to discharge the patient, I understand patient's family would like to take the patient to [place]. 02/15 patient is clinically stable, waiting to hear from family for discharge planning hopefully tomorrow. 02/16 patient is clinically stable, waiting to hear from family for discharge planning hopefully tomorrow. Discussed with care transitions nurse still no
== END 2021-02-23 21:00 | disposition home health service (06) | DRG 641 ==
LOC: ANHED 13:35 → ANH2MED 14:04
PROVIDERS: Emergency Medicine Emergency Medical Services; Internal Medicine; Internal Medicine Gastroenterology; Nurse Practitioner; Physician Assistant; Admitting Provider Family Medicine; Emergency Provider Emergency Medicine; PCP Emergency Medicine; Visit Provider Family Medicine
PROC: 0DJ08ZZ Inspection of Upper Intestinal Tract, Via Natural or Artificial Opening Endoscopic (ICD-10-PCS; CPT 43235; principal; 2021-01-30 12:45)
PROC: 0DH63UZ Insertion of Feeding Device into Stomach, Percutaneous Approach (ICD-10-PCS; CPT 43246; 2021-02-06 10:30)
DX: E86.0 Dehydration (principal); N39.0 Urinary tract infection, site not specified; N17.9 Acute kidney failure, unspecified; I47.1 Supraventricular tachycardia; B96.1 Klebsiella pneumoniae [K. pneumoniae] as the cause of diseases classified elsewhere; Z20.822 Contact with and (suspected) exposure to COVID-19; F03.90 Unspecified dementia, unspecified severity, without behavioral disturbance, psychotic disturbance, mood disturbance, and anxiety; R41.9 Unspecified symptoms and signs involving cognitive functions and awareness; R41.0 Disorientation, unspecified; R11.2 Nausea with vomiting, unspecified; K80.20 Calculus of gallbladder without cholecystitis without obstruction; K44.9 Diaphragmatic hernia without obstruction or gangrene; K25.9 Gastric ulcer, unspecified as acute or chronic, without hemorrhage or perforation; K29.70 Gastritis, unspecified, without bleeding; D53.9 Nutritional anemia, unspecified; E87.6 Hypokalemia; R63.4 Abnormal weight loss; R63.0 Anorexia; R55 Syncope and collapse; R42 Dizziness and giddiness; I10 Essential (primary) hypertension; I44.7 Left bundle-branch block, unspecified; R06.00 Dyspnea, unspecified; R60.9 Edema, unspecified; F10.10 Alcohol abuse, uncomplicated; K76.0 Fatty (change of) liver, not elsewhere classified; E78.5 Hyperlipidemia, unspecified; R33.9 Retention of urine, unspecified; Z79.899 Other long term (current) drug therapy; Z91.14 Patient's other noncompliance with medication regimen
CPT/HCPCS: 36415; 36430; 43246; 51701; 70450; 71046; 73620; 74177; 74240; 76705; 80048; 80053; 80061; 80074; 81001; 82140; 82607; 82728; 82746; 82948; 83540; 83550; 83690; 83735; 83880; 84100; 84443; 84484; 84550; 85014; 85018; 85025; 85027; 85610; 85730; 86340; 86592; 86703; 86850; 86900; 86901; 86923; 87040; 87077; 87081; 87086; 87088; 87186; 87324; 88305; 93005; 93880; 93970; 93978; 95816; 96361; 96365; 96366; 96367; 96372; 96375; 96376; 97110; 97116; 97162; 97166; 97530; 97535; 99285; A9270; C9113; C9803; G0378; G0432; J0690; J0696; J2001; J2060; J2704; J3411; J3475; J3480; J7030; J7050; J7060; J7120; P9016; Q9967; U0003; U0005

== ENCOUNTER 2021-03-30 09:56 | Outpatient (CLI) | payer MEDICARE, MEDICAID, SELFPAY ==
--- NOTE | ~2021-03-30 | XR_ITS ---
MODIFIED ESOPHAGRAM HISTORY: Dyskinesia of esophagus TECHNIQUE: Modified barium esophagram was performed on 03/30/2021. I administered fluoroscopy and perfo rmed the exam with speech pathologist. Patient was seated for lateral fluoroscopic imaging for inges tion of thin liquids, pudding, solids and quantified amounts, followed by thin liquids in uncontrolle d amounts. This was recorded on tape. A single fluoroscopic spot image was also recorded. The DAP for this procedure was 1.84 Gycm2. The amount of fluoroscopy time used during this procedure was 2.1 min utes. FINDINGS: Oral stage: Adequate function. Pharyngeal stage: Adequate function. No laryngeal penetration or aspiration. Cervical/esophageal stage: Adequate function. IMPRESSION: Patient tolerated regular consistency oral feedings in the upright position. Please anna elate with speech pathologist findings and specific feeding recommendations. Reviewed, dictated and finalized at location A. IMPRESSION: Patient tolerated regular consistency oral feedings in the upright position. Please correlate with speech pathologist findings and specific feedi ng recommendations.
--- NOTE | 2021-03-30 11:31 | STOPEVAL ---
MODIFIED BARIUM SWALLOW EVALUATION: Thank you for referring Darcy Sanchez to [facility].? Attending Provider: Gilbert Woods MD fax #: [phone] *ST Outpatient Evaluation Outpatient Past Medical History Past Medical History Source of Past Medical History Family/Significant Other Neurological History Hx Neurological Disorders No Significant History Cardiovascular History Hx Hypertension Yes Respiratory History Hx Asthma Yes Hx Bronchitis Yes Hx Pneumonia Yes Gastrointestinal History Hx Esophageal Disorders Yes Genitourinary History Hx Urinary Tract Infection Yes Musculoskeletal History Hx Arthritis Yes Hematological History Hx Hematological Disorders No Significant History Endocrine History Hx Endocrine Disorders No Significant History HEENT History Hx HEENT Disorders No Significant History Integumentary History Hx Skin Disorders No Significant History Reproductive History Hx Reproductive Disorders No Significant History Psychosocial History Hx Psychiatric Disorders No Significant History Pain History History of Any Previous or Ongoing No Significant History Instance of Pain Anesthesia History Hx Anesthesia Reactions No Significant History Modified Barium Swallow Evaluation: Recent Swallowing History Reports Dysphagia Yes History of Dysphagia Yes: esophageal disorder? History of Pneumonia Yes Reported Difficult Consistencies Unable to Identify Intake Method Prior to Swallow Gastrostomy,NPO Evaluation Consistency Solid Consistency Method of Presentation Spoon Oral Preparatory Symptoms None Oral Phase Symptoms None Pharyngeal Phase Symptoms None Severity of Vallecular Residue None - 0% No Residue Severity of Pyriform Sinus Residue None - 0% No Residue 8 Point Laryngeal Penetration-Aspiration Material Does Not Enter Airway Scale Cervical/Esophageal Symptoms None Mixed Consistency Method of Presentation Spoon Oral Preparatory Symptoms None Oral Phase Symptoms None Pharyngeal Phase Symptoms None Severity of Vallecular Residue None - 0% No Residue Severity of Pyriform Sinus Residue None - 0% No Residue 8 Point Laryngeal Penetration-Aspiration Material Does Not Enter Airway Scale Cervical/Esophageal Symptoms None Pureed Consistency Method of Presentation Spoon Oral Preparatory Symptoms None Oral Phase Symptoms None Pharyngeal Phase Symptoms None Severity of Vallecular Residue None - 0% No Residue Severity of Pyriform Sinus Residue None - 0% No Residue 8 Point Laryngeal Penetration-Aspiration Material Does Not Enter Airway Scale Cervical/Esophageal Symptoms
== END 2021-03-30 09:57 | disposition home or self-care (01) ==
PROVIDERS: PCP Emergency Medicine; Visit Provider Emergency Medicine
DX: K22.4 Dyskinesia of esophagus (principal)
CPT/HCPCS: 92611